=== PATIENT | male | born 1965 | race Caucasian/White ===

== ENCOUNTER 2019-12-15 13:52 | Outpatient (CLI) | payer MEDICAID, SELFPAY ==
--- NOTE | 2019-12-15 06:00 | DI.RAD_ITS ---
EXAM: XR PAIN CLINIC LUMBAR SP 2V CLINICAL HISTORY: Dx: Lumbar Spondylosis, BILAT LUMBAR BRANCH BLOCK TECHNIQUE: 2D and realtime digital imaging was performed. Fluoroscopy was provided in the OR COMPARISON: No exams were available for comparison FINDINGS: C-arm fluoroscopy was utilized by Dr. Bradford during bilateral lumbar medial branch block. Hard copies sh ow needles positioned adjacent to the pedicles at what appear to be the L 4 L5 and S1 levels bilatera lly. Fluoro time 41 seconds. RADIATION DOSE DELIVERED: Total DLP
[2019-12-15 13:57] VITALS: BP 115/74; PULSE 74; RESP 16; TEMP 37; O2SAT 99
--- NOTE | 2019-12-15 14:09 | PDOC.PAIN ---
Pain Clinic Procedure Note Procedure Note Procedure Note: Lumbar/Sacral Medial Branch Blocks JEANNIE ESPOSITO has been referred to the [facility] for lumbar/sacral medial branch blocks. Pre-operative diagnosis: lumbar spondylosis Post-operative diagnosis: same as above COMMENTS: patient works as a [employer]. 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 He reports aggravating factors for his axial back pain includes prolonged standing, squatting, ect. Patient was interviewed and the medical record reviewed. There were no medical, pharmacologic, radiographic or other structural contraindications to attempting fluoroscopically guided local anesthetic lumbar/sacral medial branch blocks. Risks and expected side effects as well as potential benefit of the procedure were reviewed and voiced concerns addressed. The printed consent form was signed and witnessed. Standard time-out procedure was performed. Patient was placed in the prone position on the fluoroscopy table and automated blood pressure cuff and pulse oximeter applied. The skin entry points for approaching the anatomic target points of the segmental medial branches of bilateral L3, L4, L5-DR were identified with anfluoroscopy and marked. Following thorough Chlorhexadine preparation of the skin and draping and a 25 gauge spinal needle was placed under fluoroscopic guidance down on to the target point for each respective segmental medial branch.Position was confirmed in A/P, oblique and lateral views with 0.25ml of omnipaque 240. Then 0.5ml 0.5% Bupivacaine was injected. Vital signs were stable throughout the procedure and were as recorded in the docflowsheet by the nursing staff. Follow up plans and appointments were discussed and was instructed to keep careful note of how the usual pain was modified by these injections. Specifically was asked to keep a pain diary for the next 24 hours using a numeric pain scale of 0-10 and report these results at the follow-up visit. Post procedure instruction was given as documented in the nursing documentation and having met discharge criteria. Patient was discharged from the [facility]. Based on the medial branches blocked today, if the patient has adequate relief and we are able to proceed to radiofrequency ablation, the treatment should result in the denervation of the bilateral L4/5 and L5/S1 facets. We would expect to denervate a total of 4 facets during the radiofrequency ablation. COMMENTS: pre-procedure pain level 8 out of 10. post-procedure pain level 3 out of 10. I personally performed the entire procedure. Magdiel Bradford MD Pain Management CC: Remigio Teixeira
[2019-12-15 14:44] VITALS: BP 109/74; PULSE 69; RESP 12; O2SAT 100
[2019-12-15] MEDS: Omnipaque 240 MG/ML 50 ML BTL IJ (14:45)
[2019-12-15] MEDS: Bupivacaine 0.5% Pres-Free 10 ML VIAL IJ (14:45)
== END 2019-12-15 14:12 ==
PROVIDERS: PCP Family Medicine; Visit Provider Internal Medicine
DX: M47.816 Spondylosis without myelopathy or radiculopathy, lumbar region (principal)
CPT/HCPCS: 64493; 64494; 72100; Q9967

== ENCOUNTER 2020-01-12 09:59 | Outpatient (CLI) | payer MEDICAID, SELFPAY ==
[2020-01-12 10:05] VITALS: BP 107/78; PULSE 78; RESP 16; TEMP 36.8; O2SAT 96
[2020-01-12] MEDS: Omnipaque 240 MG/ML 50 ML BTL IJ (10:37)
[2020-01-12] MEDS: Lidocaine 2% Pres-Free 5 ML VIAL IJ (10:37)
--- NOTE | 2020-01-12 10:37 | DI.RAD_ITS ---
EXAM: XR PAIN CLINIC LUMBAR SP 2V CLINICAL HISTORY: Dx: Lumbar Spondylosis TECHNIQUE: 2D and realtime digital imaging was performed. CONTRAST MATERIAL: Refer to procedure report. COMPARISON: No exams were available for comparison FINDINGS: Fluoroscopy was provided for Dr. Bradford during the performance of a lumbar radiofrequency ablation. Ple ase refer to the procedure report for complete details. Fluoro time: 52.7 seconds IMPRESSION:
[2020-01-12 10:42] VITALS: BP 110/66; PULSE 76; RESP 18; O2SAT 100
--- NOTE | 2020-01-12 10:45 | PDOC.PAIN ---
Pain Clinic Procedure Note Procedure Note Procedure Note: Lumbar/Sacral Medial Branch Blocks JEANNIE ESPOSITO has been referred to the [facility] for lumbar/sacral medial branch blocks. Pre-operative diagnosis: lumbar spondylosis Post-operative diagnosis: same as above COMMENTS: patient works as a [employer]. 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 He reports aggravating factors for his axial back pain includes prolonged standing, squatting, ect. Patient was interviewed and the medical record reviewed. There were no medical, pharmacologic, radiographic or other structural contraindications to attempting fluoroscopically guided local anesthetic lumbar/sacral medial branch blocks. Risks and expected side effects as well as potential benefit of the procedure were reviewed and voiced concerns addressed. The printed consent form was signed and witnessed. Standard time-out procedure was performed. Patient was placed in the prone position on the fluoroscopy table and automated blood pressure cuff and pulse oximeter applied. The skin entry points for approaching the anatomic target points of the segmental medial branches of bilateral L3, L4, L5-DR were identified with anfluoroscopy and marked. Following thorough Chlorhexadine preparation of the skin and draping and a 25 gauge spinal needle was placed under fluoroscopic guidance down on to the target point for each respective segmental medial branch.Position was confirmed in A/P, oblique and lateral views with 0.25ml of omnipaque 240. Then 0.5ml 2% Lidocaine was injected. Vital signs were stable throughout the procedure and were as recorded in the docflowsheet by the nursing staff. Follow up plans and appointments were discussed and was instructed to keep careful note of how the usual pain was modified by these injections. Specifically was asked to keep a pain diary for the next 24 hours using a numeric pain scale of 0-10 and report these results at the follow-up visit. Post procedure instruction was given as documented in the nursing documentation and having met discharge criteria. Patient was discharged from the [facility]. Based on the medial branches blocked today, if the patient has adequate relief and we are able to proceed to radiofrequency ablation, the treatment should result in the denervation of the bilateral L4/5 and L5/S1 facets. We would expect to denervate a total of 4 facets during the radiofrequency ablation. COMMENTS: pre-procedure pain level 8 out of 10. post-procedure pain level 2 out of 10. I personally performed the entire procedure. Magdiel Bradford MD Pain Management CC: Remigio Teixeira
== END 2020-01-12 10:19 ==
PROVIDERS: PCP Family Medicine; Visit Provider Internal Medicine
DX: M47.816 Spondylosis without myelopathy or radiculopathy, lumbar region (principal)
CPT/HCPCS: 64493; 64494; 72100; Q9967

== ENCOUNTER 2020-01-28 13:45 | Outpatient (CLI) | payer MEDICAID, SELFPAY ==
--- NOTE | 2020-01-28 06:00 | DI.RAD_ITS ---
EXAM: XR PAIN CLINIC LUMBAR SP 2V CLINICAL HISTORY: Dx:Lumbar Spondylosis TECHNIQUE: 2D and realtime digital imaging was performed. COMPARISON: No exams were available for comparison FINDINGS: C-arm fluoroscopy was utilized by Dr. Tapia during reported radiofrequency ablation lumbar region. [address] rd copies show needle placement bilaterally what appear to be the L3-4 L4-5 and L5-S1 levels Fluoro time 94 seconds. IMPRESSION: RADIATION DOSE DELIVERED: Total DLP
[2020-01-28 13:54] VITALS: BP 115/91; PULSE 74; RESP 16; TEMP 36.5; O2SAT 98
[2020-01-28] MEDS: Lactated Ringers 1,000 ML 80 ML IV (14:14)
[2020-01-28] MEDS: fentaNYL 100 MCG/2 ML VIAL IVP (14:21)
[2020-01-28] MEDS: Midazolam 2 MG/2 ML VIAL IVP (14:22)
[2020-01-28 15:06] VITALS: BP 107/67; PULSE 72; RESP 13; O2SAT 100
[2020-01-28] MEDS: Lidocaine 2% Pres-Free 5 ML VIAL IJ (15:34)
[2020-01-28] MEDS: methylPREDNISolone ACETATE 40 MG/ML VIAL IJ (15:34)
[2020-01-28] MEDS: Bupivacaine 0.5% Pres-Free 10 ML VIAL IJ (15:34)
--- NOTE | 2020-02-11 09:42 | PDOC.PAIN_ITS ---
Pain Clinic Procedure Note Procedure Note Procedure Note: Bilateral Lumbar Radiofrequency with Coolief Machine PROCEDURE NOTE Date of Service: January 28, 2020 Patient: JEANNIE ESPOSITO Provider: Riley Tapia DO, MPH Pre Operative Diagnosis: lumobsacral spondylosis without myelopathy Post Operative Diagnosis: Same PROCEDURE: Radiofrequency Ablation of medial branches - Bilateral L3 L4 and L5DR JEANNIE ESPOSITO was brought into the fluoroscopy suite and positioned into the prone position on the fluoroscopy table and allowed to adjust to a position of comfort. A grounding pad was placed on the right thigh. The lumbar region was widely prepped with a chloraprep solution, allowed to air dry and draped in s tandard sterile surgical fashion. Local anesthesia was provided by 1 mL of 2 % Lidocaine delivered with a 25g needle to each entry site. A 17g 100mm radiofrequency introducer needle was placed to the planned anatomic targets guided with intermittent fluoroscopy with a perpendicular approach to terminally place at the junction of the superior articular process and the transverse process of the bilateral L4 L5 and the base of the sacral ala on the bilateral for the L5 medial branch nerve. The stylets were removed and radiofrequency probes with a 4mm active tip were then inserted. Needle tip position of the probes was verified in the AP, oblique, and lateral views. At each site, the medial branch nerve was stimulated at 2 Hz to a maximum 1-2 volts determined to finalize safe needle and electrode placement. The patient was awake and responsive during this portion of the procedure. Each target was anesthetized with 1-2 mL of 2 % Lidocaine for anesthesia for lesioning and then each target was lesioned at 80 degrees Celsius for 2 minutes and 30 seconds. Tissue impedences were noted to be between 250 and 500 Ohms. After the ablation I injected 1/3 cc of Depomedrol (40 mg/cc) and 1 cc of 0.5% Bupivacaine at each ablation area. Electrodes and needles were then removed without difficulty and bandages placed over the needle placement sites, the patient then returned to the supine position on a stretcher and transported to the recovery room without hemodynamic, neurologic, or allergic reactions. Fluoroscopic images were printed for hard copy recording and digitally archived. Follow up plans and appointments were discussed with the JEANNIE . Post procedure instruction was given as documented in nursing documentation and having met discharge criteria, JEANNIE was discharged from the [facility]. COMMENTS: No complications. F/U with our office as needed. I personally performed this entire procedure. Riley Tapia DO, MPH Attending Physician in Pain Management
== END 2020-01-28 14:05 ==
PROVIDERS: PCP Family Medicine; Visit Provider Preventive Medicine Occupational Medicine
DX: M47.817 Spondylosis without myelopathy or radiculopathy, lumbosacral region (principal)
CPT/HCPCS: 64635; 64636; 72100; J1030; J2250; J3010

== ENCOUNTER 2022-03-22 18:38 | Outpatient (REF) | payer MEDICAID, SELFPAY ==
[2022-03-22 21:24] LABS: ALT 63 U/L (16-63); AST 37 U/L (15-37); Alkaline Phosphatase 65 U/L (46-116); Anion Gap 4.8 mmol/L (3-11); BUN 14 mg/dL (7-18); Bilirubin, Total 0.4 mg/dL (0.2-1.0); CO2 28.2 mmol/L (21.0-32.0); CREATININE 0.9 mg/dL (0.70-1.30); Calcium 8.8 mg/dL (8.5-10.1); Calculated LDL 93 mg/dL (<100); Chloride 104 mmol/L (98-107); Cholesterol 165 mg/dL (<200); Estimated GFR 100.24 (mL/min/1.73m2); Glucose 89 mg/dL (74-106); HDL Cholesterol 64 mg/dL (40-60); Potassium 3.9 mmol/L (3.5-5.1); Sodium 137 mmol/L (136-145); TSH (W/Ref FT4) 2.54 uIU/mL (0.36-3.74); Triglyceride 43 mg/dL (<150)
== END 2022-03-22 18:39 | disposition home or self-care (01) ==
LOC: NCHCN 18:38
PROVIDERS: PCP Family Medicine; Visit Provider Nurse Practitioner Family
DX: Z00.00 Encounter for general adult medical examination without abnormal findings (principal)
CPT/HCPCS: 80053; 80061; 84443; 85025

== ENCOUNTER 2022-03-26 15:51 | Outpatient (REF) | payer MEDICAID, SELFPAY ==
[2022-03-26 14:52] LABS: Abs Immature Grans 0.01 10^3/uL (0.0-0.06); Absolute Basophil Count 0.07 10^3/uL (0.0-0.2); Absolute Eosinophil Count 0.36 10^3/uL (0.0-0.7); Absolute Lymphocyte Count 1.71 10^3/uL (1.2-3.4); Absolute Monocyte Count 0.53 10^3/uL (0.1-0.8); Absolute Neutrophil Count 2.67 10^3/uL (1.2-6.7); Basophils % 1.3; Eosinophils % 6.7; HCT 42.8 % (40.0-50.0); HGB 14.4 g/dL (13.5-17.5); Immature Grans % 0.2; MCH 29.4 pg (27.0-33.0); MCHC 33.6 % (32.0-36.0); MCV 87 fL (80-95); MPV 10.5 fL (8.0-11.0); Monocytes % 9.9; Neutrophils % 49.9; Platelet Count 180 10^3/uL (130-400); RDW 11.7 % (11.8-14.1); RDW-SD 37.8 fL; WBC 5.35 10^3/uL (4.4-10.8)
== END 2022-03-26 15:52 | disposition home or self-care (01) ==
LOC: NCHCN 15:51
PROVIDERS: PCP Family Medicine; Visit Provider Nurse Practitioner Family
DX: Z00.00 Encounter for general adult medical examination without abnormal findings (principal)
CPT/HCPCS: 85025

== ENCOUNTER 2022-04-19 12:41 | Outpatient (CLI) | payer MEDICAID, SELFPAY ==
[2022-04-19 12:53] VITALS: BP 106/70; PULSE 70; RESP 20; TEMP 37; O2SAT 99
--- NOTE | 2022-04-19 13:43 | DI.RAD_ITS ---
Exam(s) XR PAIN CLINIC LUMBAR SP 2V EXAM: XR PAIN CLINIC LUMBAR SP 2V CLINICAL HISTORY: Dx:Lumbar SPondylosis TECHNIQUE: 2D and realtime digital imaging was performed. CONTRAST MATERIAL: Refer to procedure report. COMPARISON: No exams were available for comparison FINDINGS: Fluoroscopy was provided for Dr. Tapia during the performance of a lumbar medial branch block. Jack gonzalez refer to the procedure report for complete details. Ka,r=6.0 mGy IMPRESSION:
--- NOTE | 2022-04-19 13:45 | PDOC.PAIN_ITS ---
Date of service: 04/19/22 Time of Service: 13:49 Pain Clinic Procedure Note Procedure Note Procedure Note: Lumbar/Sacral Medial Branch Blocks Jamal Evans has been referred to the [facility] for lumbar/sacral medial branch blocks. COMMENTS: He did very well with bilateral L3-L5 RFA >18 months ago. He had about 18 months of relief. His pre=procedure Pain VAS is 8/10. Dx: Lumbosacral spondylosis without myelopathy Patient was interviewed and the medical record reviewed. There were no medical, pharmacologic, radiographic or other structural contraindications to attempting fluoroscopically guided local anesthetic lumbar/sacral medial branch blocks. Risks and expected side effects as well as potential benefit of the procedure were reviewed and voiced concerns addressed. The printed consent form was signed and witnessed. Standard time-out procedure was performed. Patient was placed in the prone position on the fluoroscopy table and automated blood pressure cuff and pulse oximeter applied. The skin entry points for ap proaching the anatomic target points of the segmental medial branches of bilateral L3-L5 were identified with anfluoroscopy and marked. Following thorough Chlorhexadine preparation of the skin and draping and 1% lidocaine infiltration of the skin entry points and subcutaneous tissues, a 22 gauge 3.5 spinal needle was placed under fluoroscopic guidance down on to the target point for each respective segmental medial branch.Position was confirmed in A/P, oblique and lateral views with 0.25ml of omnipaque 240. At this point I injected 0.5ml 0.5% Bupivacaine at each segmental sensory nerve. Vital signs were stable throughout the procedure and were as recorded in the docflowsheet by the nursing staff. Follow up plans and appointments were discussed and was instructed to keep careful note of how the usual pain was modified by these injections. Specifically was asked to keep a pain diary for the next 24 hours using a numeric pain scale of 0-10 and report these results at the follow-up visit. Post procedure instruction was given as documented in the nursing documentation and having met discharge criteria. Patient was discharged from the [facility] Management Center. Based on the medial branches blocked today, if the patient has adequate relief and we are able to proceed to radiofrequency ablation, the treatment should result in the denervation of the bilateral L4-L5 and L5-S1 FACET JOINTS. We would expect to denervate a total of 4 facets during the radiofrequency ablation. COMMENTS: Post-procedure pain VAS was 6/10 Riley Tapia DO, MPH [facility]-Pain Management [facility] CC: Remigio Teixeira
[2022-04-19] MEDS: Bupivacaine 0.5% Pres-Free 10 ML VIAL IJ (13:51)
[2022-04-19] MEDS: Omnipaque 240 MG/ML 50 ML BTL IJ (13:51)
[2022-04-19 13:55] VITALS: BP 109/65; PULSE 69; RESP 14; O2SAT 100
== END 2022-04-19 12:42 | disposition home or self-care (01) ==
LOC: PC 12:41
PROVIDERS: PCP Family Medicine; Visit Provider Preventive Medicine Occupational Medicine
DX: M47.817 Spondylosis without myelopathy or radiculopathy, lumbosacral region (principal)
CPT/HCPCS: 64493; 64494; 72100; Q9967

== ENCOUNTER 2022-05-09 07:47 | Outpatient (CLI) | payer MEDICAID, SELFPAY ==
[2022-05-09 07:53] VITALS: BP 101/67; PULSE 75; RESP 20; TEMP 36.8; O2SAT 97
[2022-05-09] MEDS: Midazolam 2 MG/2 ML VIAL IVP (08:22)
[2022-05-09] MEDS: fentaNYL 100 MCG/2 ML VIAL IVP (08:22)
[2022-05-09] MEDS: Lactated Ringers 500 ML 80 ML IV (08:23)
--- NOTE | 2022-05-09 08:44 | DI.RAD_ITS ---
Exam(s) XR PAIN CLINIC LUMBAR SP 2V EXAM: XR PAIN CLINIC LUMBAR SP 2V CLINICAL HISTORY: Dx: Lumbar Spondylosis TECHNIQUE: 2D and realtime digital imaging was performed. CONTRAST MATERIAL: Refer to procedure report. COMPARISON: No exams were available for comparison FINDINGS: Fluoroscopy was provided for Dr. Bradford during the performance of a lumbar frequency radioablation. Ple ase refer to the procedure report for complete details. Ka,r=5.59 mGy IMPRESSION:
[2022-05-09 08:48] VITALS: BP 123/61; PULSE 61; RESP 16; O2SAT 100
--- NOTE | 2022-05-09 08:50 | PDOC.PAIN_ITS ---
Date of service: 05/09/22 Time of Service: 08:50 Pain Clinic Procedure Note Procedure Note Procedure Note: [Right/Left/Bilateral] Lumbar Radiofrequency with Coolief Machine PROCEDURE NOTE Date of Service: May 09, 2022 Patient: CristinaJamal William Provider: Magdiel Bradford MD Pre Operative Diagnosis: Lumbosacral Spondylosis without Myelopathy Post Operative Diagnosis: Same PROCEDURE: Radiofrequency Ablation of medial branches - Bilateral L3, L4, L5-DR Jamal Evans was brought into the fluoroscopy suite and positioned into the prone position on the fluoroscopy table and allowed to adjust to a position of comfort. A grounding pad was placed on the left thigh. The lumbar region was widely prepped with a chloraprep solution, allowed to air dry and draped in standard sterile surgical fashion. Local anesthesia was provided by ~10mL of 1% lidocaine delivered with a 25g needle. A 17g 50mm radiofrequency introducer needle was placed to the planned anatomic targets guided with intermittent fluoroscopy with a perpendicular approach to terminally place at the junction of the superior articular process and the transverse process of the bilateral L3, L4, the base of the sacral ala on the bilateral for the L5 medial branch nerve bilaterally. The stylets were removed and radiofrequency probes with a 4mm active tip were then inserted. Needle tip position of the probes was verified in the AP, oblique, and lateral views. At each site, the medial branch nerve was stimulated at 2 Hz to a maximum 1-2 volts determined to finalize safe needle and electrode placement. The patient was awake and responsive during this portion of the procedure. Each target was anesthetized with 1mL of 2% Lidocaine for anesthesia for lesioning and then each target was lesioned at 80 degrees Celsius for 2 minutes and 30 seconds. Tissue impedences were noted to be between 250 and 500 Ohms. Post-lesioning, each site received 0.33cc of a mixture containing 2cc of 0.5% Bupivocaine and 80mg/ml of Depomedrol. Electrodes and needles were then removed and bandages placed over the needle placement sites, the patient then returned to the supine position on a stretcher and transported to the recovery room without hemodynamic, neurologic, or allergic reactions. Fluoroscopic images were printed for hard copy recording and digitally archived. POST PROCEDURE EVALUATION: IMPRESSION: 1. Patient tolerated procedure well. He received total of 1mg of IV versed and 25mcg of IV Fetanyl 2. The patient will be contacted in 1-3 weeks 3. Estimated Blood Loss: <5 mls 4. Fluoroscopy time: Documented in the EMR. Follow up plans and appointments were discussed with the Jamal . Post procedure instruction was given as documented in nursing documentation and having met discharge criteria, Jamal was discharged from the [facility] Management Center. COMMENTS: No apparent complications. Pre-procedure VAS score 8/10, post- procedure pain: VAS= 4/10. F/U with our office as needed. I personally performed this entire procedure. Magdiel Bradford Attending Physician Pain Management
[2022-05-09] MEDS: Bupivacaine 0.5% Pres-Free 10 ML VIAL IJ (08:57)
[2022-05-09] MEDS: methylPREDNISolone ACETATE 40 MG/ML VIAL IJ (08:57)
[2022-05-09] MEDS: Lidocaine 2% Pres-Free 5 ML VIAL IJ (08:57)
== END 2022-05-09 07:48 | disposition home or self-care (01) ==
LOC: PC 07:47
PROVIDERS: PCP Nurse Practitioner Family; Visit Provider Internal Medicine
DX: M47.817 Spondylosis without myelopathy or radiculopathy, lumbosacral region (principal)
CPT/HCPCS: 64635; 64636; 72100; J1030; J2250; J3010

== ENCOUNTER 2022-05-18 00:12 | Outpatient (CLI) | payer MEDICAID, SELFPAY ==
--- NOTE | 2022-05-18 08:56 | DI.RAD_ITS ---
Exam(s) RF BARIUM SWALLOW EXAM: RF BARIUM SWALLOW CLINICAL HISTORY: dysphagia to liquids and solids, nausea and vomiting,r13.10 TECHNIQUE: 2D and realtime digital imaging was performed. CONTRAST MATERIAL: Thick and thin barium and barium tablet were administered. COMPARISON: No exams were available for comparison FINDINGS: The PA and lateral chest films show normal heart size and clear lung pisano. The lateral view of the neck shows degenerative disc changes at C5-6 and C6-7 as well as facet degenerative changes. Airway appears normal. Thin barium, thick barium and barium tablet were administered. The patient swallowed barium without difficulty. Esophageal peristalsis is normal. No ulceration, s tricture or mass is seen. [id number] gastroesophageal reflux was noted when the patient was [place]. No hiatal hernia. Stomach grossly normal. Fluoro time 62 seconds IMPRESSION: Gastroesophageal reflux. RADIATION DOSE DELIVERED: ashli Fitch=5.86 mGy
[2022-05-18] MEDS: Barium Sulfate 98% W/W 140 ML BTL PO (09:25)
[2022-05-18] MEDS: Barium Sulfate 60% W/V 355 ML BTL 150 ML PO (09:25)
[2022-05-18] MEDS: Barium Sulfate 700 MG TAB PO (09:26)
[2022-05-18] MEDS: Simethicone/Sod Bicarb/Cit Ac, 4 gram PACKET 1 PACKET PO (09:26)
== END 2022-05-18 00:32 ==
LOC: DI 00:12
PROVIDERS: PCP Nurse Practitioner Family; Visit Provider Physical Therapy Assistant
DX: R13.19 Other dysphagia (principal); R11.2 Nausea with vomiting, unspecified; K21.9 Gastro-esophageal reflux disease without esophagitis; M50.322 Other cervical disc degeneration at C5-C6 level; M50.323 Other cervical disc degeneration at C6-C7 level
CPT/HCPCS: 74221; J3490

== ENCOUNTER 2022-05-29 02:18 | Outpatient (CLI) | payer MEDICAID, SELFPAY ==
--- NOTE | 2022-05-29 07:00 | DI.MRI_ITS ---
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 COMPARISON: None FINDINGS: CERVICOMEDULLARY JUNCTION: Intact with no evidence of cerebellar tonsillar ectopia. No obvious abnor mality of the odontoid process. No evidence of Chiari 1 malformation. CERVICAL SPINAL CORD: There is no abnormal signal in the cervical spinal cord and no evidence of foca l cord atrophy nor focal cord swelling. OSSEOUS:There are no cervical fractures evident. No significant osseous lesions in the cervical vert ebrae. Mild reversal normal curvature noted. INDIVIDUAL LEVELS: C2-3: No disc herniation nor central canal stenosis. Right facet joints unremarkable. Left facet ex hibits degenerative change. No significant foraminal stenosis on either side at this level. C3-4: Normal disc height and signal. Mild annular bulging without a distinct disc herniation. Centr al canal dimensions within normal limits. There is significant left facet arthropathy; less so on th e right side. No foraminal stenosis. C4-5: Preserved disc height.Mild annular bulging without a distinct focal disc herniation. Central c anal dimensions are lower normal. Some facet arthropathy noted on the right side; there is right tennille ed foraminal stenosis. Left facet joint unremarkable. No obvious foraminal stenosis on the left tennille e. C5-6: Chronic disc space narrowing and anterior osseous lipping. Posteriorly at this level there is symmetrical annular bulging which show indents the thecal sac but not the spinal cord. Mild facet ar thropathy on the right side. Mild right-sided foraminal stenosis. Left facet joint only mild degene rative change. No left-sided foraminal stenosis evident. C6-7: Chronic decreased disc height and signal. Anterior osseous lipping. Posteriorly there is mild annular bulging without a distinct disc herniation and central canal dimensions are within normal li mits. Small left-sided Luschka joint osteophyte at this level with only mild left-sided foraminal st enosis. On the right side at this level there are minimal degenerative facet joint changes.. Also m ild foraminal stenosis. C7-T1: No disc herniation nor central canal stenosis. Moderate bilateral facet arthropathy.No foramin al stenosis. IMPRESSION: 1. Multilevel degenerative disc disease. No dominant disc herniation. There is no significant centr al spinal canal stenosis. 2. There is asymmetric facet arthropathy as described individually above and resulting asymmetric mil d bilateral foraminal stenosis, as described individually above. 3. No abnormal signal evident in the cervical spinal cord and there is no cervical spinal cord atroph y nor focal swelling. DATA REPOSITORY:
== END 2022-05-29 02:38 ==
LOC: DI 02:19
PROVIDERS: PCP Nurse Practitioner Family; Visit Provider Preventive Medicine Occupational Medicine
DX: M47.812 Spondylosis without myelopathy or radiculopathy, cervical region (principal); M48.02 Spinal stenosis, cervical region
CPT/HCPCS: 72141

== ENCOUNTER 2022-09-06 11:45 | Outpatient (CLI) | payer MEDICAID, SELFPAY ==
--- NOTE | 2022-09-06 06:00 | DI.RAD_ITS ---
Exam(s) XR PAIN CLINIC CERVICAL SP 2V EXAM: XR PAIN CLINIC CERVICAL SP 2V CLINICAL HISTORY: DX: Cervical spondylosis TECHNIQUE: 2D and realtime digital imaging was performed. CONTRAST MATERIAL: Refer to procedure report. COMPARISON: No exams were available for comparison FINDINGS: Fluoroscopy was provided for Dr. Tapia during the performance of a cervical medial branch block. Ple ase refer to the procedure report for complete details. Ka,r=3.13 mGy IMPRESSION:
[2022-09-06 11:54] VITALS: BP 98/61; PULSE 71; RESP 20; TEMP 36.6; O2SAT 100
--- NOTE | 2022-09-06 12:36 | PDOC.PAIN ---
Date of service: 09/06/22 Time of Service: 12:39 Pain Managment Procedure Note Procedure Note Procedure Note: CERVICAL MEDIAL BRANCH BLOCKS Jamal Evans has been referred to the Pain Management Center for cervical medial branch blocks. COMMENTS: I previously evaluated him in the office Dx: Cervical spondylosis without myelopathy Pre-procedure pain VAS was 8/10 Cristina was interviewed and the medical record reviewed. There were no medical, pharmacologic, radiographic or other structural contraindications to attempting fluoroscopically guided local anesthetic cervical medial branch blocks. Risks and expected side effects as well as potential benefit of the procedure were reviewed with Cristina, and Cristina's voiced concerns addressed. The printed consent form was signed and witnessed. Standard time-out procedure was performed. Noraas placed in the Right lateral decubitus position on the fluoroscopy table and automated blood pressure cuff and pulse oximeter applied. The skin entry points for approaching the anatomic target points of the segmental medial branches of left C3-C6 were identified with fluoroscopy and marked. Following thorough Chlorhexadine preparation of the skin and draping and 1% lidocaine infiltration of the skin entry points and subcutaneous tissues, a 25 gauge spinal needle was placed under fluoroscopic guidance down on to the target point for each respective segmental medial branch. Position was confirmed in A/P and leteral views with 0.25ml of omnipaque 240 injected at each level. At each point 0.3ml of 0.5% bupivicaine was injected. Cristina's vital signs were stable throughout the procedure and were as recorded in the docflowsheet by the nursing staff. Follow up plans and appointments were discussed with Cristina. Cristina was instructed to keep careful note of how the usual pain was modified by these injections. Specifically, the patient was asked to keep a pain diary for the next 4 hours using a numeric pain scale of 0-10 and report these results at the follow-up visit. Post procedure instruction was given as documented in the nursing documentation and having met discharge criteria, Jeane was discharged from the Pain Management Center. Based on the medial branches blocked today, if they patient has adequate relief and we are able to proceed to radiofrequency ablation, the treatment should result in the denervation of the C3-C4, C4-C5, and C5-C6 facet joints. We would expect to denervate a total of 3 facets during the radiofrequency ablation. COMMENTS: Post-procedure pain VAS was 4/10. Riley [place], DO, MPH [facility]-Pain Management [facility] CC: Peace Cuevas
[2022-09-06 12:38] VITALS: BP 104/61; PULSE 67; RESP 17; O2SAT 100
[2022-09-06] MEDS: Bupivacaine 0.5% Pres-Free 10 ML VIAL IJ (12:38)
[2022-09-06] MEDS: Omnipaque 240 MG/ML 50 ML BTL IJ (12:38)
== END 2022-09-06 11:46 | disposition home or self-care (01) ==
LOC: PC 11:46
PROVIDERS: PCP Nurse Practitioner Family; Visit Provider Preventive Medicine Occupational Medicine
DX: M47.812 Spondylosis without myelopathy or radiculopathy, cervical region (principal)
CPT/HCPCS: 64490; 64491; 64492; 72040; Q9967

== ENCOUNTER 2022-11-08 10:36 | Outpatient (REF) | payer MEDICAID, SELFPAY ==
[2022-11-08 14:23] LABS: HCT 46.1 % (40.0-50.0); HGB 15.8 g/dL (13.5-17.5); MCH 30.2 pg (27.0-33.0); MCHC 34.3 % (32.0-36.0); MCV 88 fL (80-95); MPV 10.7 fL (8.0-11.0); Platelet Count 217 10^3/uL (130-400); RBC 5.23 10^6/uL (4.36-5.78); RDW 11.7 % (11.8-14.1); RDW-SD 37.5 fL; WBC 5.53 10^3/uL (4.4-10.8)
== END 2022-11-08 10:37 | disposition home or self-care (01) ==
LOC: NCHCN 10:36
PROVIDERS: PCP Nurse Practitioner Family; Visit Provider Family Medicine
DX: R63.4 Abnormal weight loss (principal)
CPT/HCPCS: 85027

== ENCOUNTER 2022-11-15 08:51 | Outpatient (CLI) | payer MEDICAID, SELFPAY ==
[2022-11-15 09:03] VITALS: BP 111/71; PULSE 68; RESP 20; TEMP 37; O2SAT 98
--- NOTE | 2022-11-15 09:31 | DI.RAD_ITS ---
Exam(s) XR PAIN CLINIC CERVICAL SP 2V EXAM: XR PAIN CLINIC CERVICAL SP 2V CLINICAL HISTORY: Dx: Cervical Spondylosis. TECHNIQUE: Fluoroscopy was provided for the referring physician for guidance with performing pain cl inic injection procedure. COMPARISON: No exams were available for comparison FINDINGS: Please see procedure note for details. Fluoro time: 52.3 seconds RADIATION DOSE DELIVERED: ashli Fitch=7.92 mGy
[2022-11-15] MEDS: Omnipaque 240 MG/ML 50 ML BTL IJ (09:33)
[2022-11-15] MEDS: Bupivacaine 0.5% Pres-Free 10 ML VIAL IJ (09:34)
--- NOTE | 2022-11-15 09:40 | PDOC.PAIN ---
Date of service: 11/15/22 Time of Service: 09:43 Pain Managment Procedure Note Procedure Note Procedure Note: PROCEDURE NOTE LEFT SIDED CERVICAL MEDIAL BRANCH BLOCKS Date of Service: November 15, 2022 Patient: Jamal Evans Provider: Riley Tapia DO, MPH Jamal Evans [facility] for cervical medial branch blocks. Pre-operative diagnosis: Cervical Spondylosis without Myelopathy Post-operative diagnosis: Same Pre-procedure pain: VAS= 9/10 COMMENTS: He did very well with his first CMBB at these same levels. Jamal?was interviewed and the medical records were reviewed. There were no medical, pharmacologic, radiographic or other structural contraindications to attempting fluoroscopically guided local anesthetic cervical medial branch blocks. Risks and potential side effects were discussed. I also discussed the potential benefit(s) of the procedure with Jamal, and voiced concerns were addressed. After Jamal was completely informed about the procedure, the printed consent form was signed. A standard time-out procedure was performed. Jamal was placed in the lateral decubitus position on the fluoroscopy table with the effected side up. Automated blood pressure cuff and pulse oximeter were applied. The skin entry points for approaching the anatomic target points of the segmental medial branches of Left C3,C4,C5, and C6 were identified with fluoroscopy and marked. The skin at the target site area was thoroughly prepared with Chlorhexadine. The skin was then draped. Next, a 25 gauge 3.5 spinal needle was placed under fluoroscopic guidance down on to the target point (the articular pillar) for each respective segmental medial branch. Position was confirmed in A/P and lateral views. Aspiration revealed no blood or clear fluid. Next, 0.25ml of omnipaque 240 was injected at each level. No contrast following a vascular or neural pattern was visualized under continuous fluoroscopy. Next, 0.25 ml of preservative-free 0.5% bupivicaine was injected at each level. (49 mls of Omnipaque was wasted) There was no unusual discomfort expressed by Jamal. The needles were withdrawn without difficulty. Jamal was observed and was without hemodynamic, neurologic, or allergic reactions.? Fluoroscopic images were digitally archived. Jamal's vital signs were stable throughout the procedure and were as recorded in the docflowsheet by the nursing staff. Provacative testing using the Modified Santana's facet loading test Left side Directly before the block VAS (0-10) = 9/10 Five minutes after the block VAS (0-10) = 2/10 Percentage relief obtained with this diagnostic block 90% Any improved physical functioning directly after the blocks? Able to move his next in all directions with minimal pain Follow up plans and appointments were discussed with Jamal. Jamal was instructed to keep careful note of how the usual pain was modified by these injections. Specifically, to keep a pain diary for the next 4 hours using a numeric pain scale of 0-10 and report these results. Post procedure instruction was given as documented in the nursing documentation and having met discharge criteria, the patient was [facility]. Based on the medial branches blocked today, if Jamal has adequate relief and we are able to proceed to radiofrequency ablation, the treatment should result in the denervation of the Left C3-C4 C4-C5 and C5-C6 facet joints. We would expect to denervate a total of 3 facets during the radiofrequency ablation. COMMENTS: No apparent complications. Post-procedure pain: VAS= 2/10 Jamal will call back with 0-4 hour post-procedure pain scores. I personally performed the entire procedure. RILEY TAPIA DO, MPH ABPM&R-subspecialty board certification in Pain Medicine [facility] [facility]
[2022-11-15 09:41] VITALS: BP 116/79; PULSE 60; RESP 13; O2SAT 100
== END 2022-11-15 08:52 | disposition home or self-care (01) ==
LOC: PC 08:52
PROVIDERS: PCP Nurse Practitioner Family; Visit Provider Preventive Medicine Occupational Medicine
DX: M47.817 Spondylosis without myelopathy or radiculopathy, lumbosacral region (principal)
CPT/HCPCS: 64490; 64491; 64492; 72040; Q9967

== ENCOUNTER 2023-01-17 07:36 | Outpatient (CLI) | payer MEDICAID, SELFPAY ==
--- NOTE | 2023-01-17 06:00 | DI.RAD_ITS ---
Exam(s) XR PAIN CLINIC CERVICAL SP 2V EXAM: XR PAIN CLINIC CERVICAL SP 2V CLINICAL HISTORY: Dx: Cervical Spondylosis TECHNIQUE: 2D and realtime digital imaging was performed. CONTRAST MATERIAL: Refer to procedure report. COMPARISON: No exams were available for comparison FINDINGS: Fluoroscopy was provided for Dr. Tapia during the performance of a cervical radiofrequency ablation. Please refer to the procedure report for complete details. Ka,r=4.53 mGy IMPRESSION:
[2023-01-17 07:47] VITALS: BP 109/78; PULSE 65; RESP 20; TEMP 36.8; O2SAT 98
[2023-01-17] MEDS: fentaNYL 100 MCG/2 ML VIAL IVP (08:24)
[2023-01-17] MEDS: Lactated Ringers 500 ML 80 ML IV (08:25)
[2023-01-17] MEDS: Midazolam 2 MG/2 ML VIAL IVP (08:25)
[2023-01-17 08:52] VITALS: BP 104/75; PULSE 68; RESP 16; O2SAT 98
--- NOTE | 2023-01-17 09:05 | PDOC.PAIN ---
Date of service: 01/17/23 Time of Service: 09:05 Pain Managment Procedure Note Procedure Note Procedure Note: PROCEDURE NOTE LEFT Cervical Radiofrequency Ablation Date of Service: January 17, 2023 Patient:? Jamal Evans? Provider:? Rilye Tapia DO, MPH Jamal Evans [facility] to [facility] LEFT Cervical Radiofrequency Ablation with the [employer] Machine.? Pre Operative Diagnosis: Cervical Spondylosis without Myelopathy Post Operative Diagnosis: Same Pre procedure pain; VAS= 7/10 Comments: He did very well with the CMBBs x 2 PROCEDURE: 1. Left C3-C4 facet joint radiofrequency denervation 2. Left C4-C5 facet joint radiofrequency denervation 3. Left C5-C6 facet joint radiofrequency denervation Jamal?was interviewed and the medical record was reviewed.? There were no medical, pharmacologic, radiographic or other structural contraindications to attempting fluoroscopically guided LEFT Cervical Radiofrequency Ablation.?Risks and expected side effects as well as potential benefit of the procedure were reviewed with Jamal, and the patient's voiced concerns were addressed.? The printed consent form was signed.? Standard time-out procedure was performed. Jamal was brought to the procedure suite and placed on the exam table in a comfortable lateral recumbent position. A grounding pad was placed on the left abdomen. The place for the needle placement was obtained by manual palpation as well as radiographic confirmation. The sterile field was prepped by chlorhexidine and sterile drapes. Local anesthesia, both superficial and deep was provided by local infiltration of 3 ml Lidocaine 1%. Using fluoroscopic guidance, A 17g 50 mm radiofrequency introducer needle with a 2 mm active tip was placed overlying the right C3 cervical vertebra from the lateral approach and was advanced until bony contact was felt with the articular pillar. Attempted aspiration revealed no blood or cerebrospinal fluid. Motor testing was then performed with 2.0 volts and no upper extremity motor stimulation was observed. 1 ml of 2% Lidocaine was injected through the RF needle. A radiofrequency lesion of the Left medial branch of C3 was then performed at 80 degrees Celsius for 2 minutes and 30 seconds. There was no unusual discomfort expressed by Jamal. The needles were withdrawn without difficulty. Jamal was observed and was without hemodynamic, neurologic, or allergic reactions. Fluoroscopic images were digitally archived. The same procedure was repeated for Left C4, C5 and C6 medial branches. POST PROCEDURE EVALUATION: IMPRESSION: 1. Medication given is documented in the MAR 2. Follow up plan: Jamal to contact [facility] as needed. This procedure may be repeated if the patient achieves at least 50% improvement in pain and/or function for at least 6 months. 3. Estimated Blood Loss: <5ml 4. Fluoroscopy time: Documented in the EMR Follow up plans and appointments were discussed with Jamal. Post procedure instruction was given as documented in nursing documentation and having met discharge criteria, Jamal was discharged from the [facility]. COMMENTS: No apparent complications. Post-procedure pain: VAS= 2/10. I personally performed this entire procedure. RILEY TAPIA DO, MPH ABPM&R - Subspecialty board certification in Pain Medicine [facility]
[2023-01-17] MEDS: Bupivacaine 0.5% Pres-Free 10 ML VIAL IJ (09:09)
[2023-01-17] MEDS: Lidocaine 2% Pres-Free 5 ML VIAL IJ (09:11)
[2023-01-17] MEDS: Dexamethasone Sod. Phos./Pres-Free 10 MG/ML VIAL IJ (09:12)
== END 2023-01-17 07:37 | disposition home or self-care (01) ==
LOC: PC 07:36
PROVIDERS: PCP Nurse Practitioner Family; Visit Provider Preventive Medicine Occupational Medicine
DX: M47.812 Spondylosis without myelopathy or radiculopathy, cervical region (principal)
CPT/HCPCS: 64633; 64634; 72040; J2250; J3010

== ENCOUNTER 2023-04-11 11:30 | Outpatient (CLI) | payer MEDICAID, SELFPAY ==
--- NOTE | 2023-04-11 06:00 | DI.RAD_ITS ---
Exam(s) XR PAIN CLINIC CERVICAL SP 2V EXAM: XR PAIN CLINIC CERVICAL SP 2V CLINICAL HISTORY: Dx: Cervical Spondylosis TECHNIQUE: 2D and realtime digital imaging was performed. CONTRAST MATERIAL: Refer to procedure report. COMPARISON: No exams were available for comparison FINDINGS: Fluoroscopy was provided for Dr. Tapia during the performance of a cervical medial branch block. Ple ase refer to the procedure report for complete details. Ka,r=4.09 mGy IMPRESSION:
[2023-04-11 11:36] VITALS: BP 110/66; PULSE 57; RESP 20; TEMP 36.7; O2SAT 97
[2023-04-11] MEDS: Omnipaque 240 MG/ML 50 ML BTL IJ (12:49)
[2023-04-11] MEDS: Bupivacaine 0.5% Pres-Free 10 ML VIAL IJ (12:49)
[2023-04-11 12:50] VITALS: BP 105/63; PULSE 65; RESP 19; O2SAT 100
--- NOTE | 2023-04-17 10:41 | PDOC.PAIN ---
Date of service: 04/11/23 Time of Service: 10:41 Pain Managment Procedure Note Procedure Note Procedure Note: PROCEDURE NOTE RIGHT SIDED CERVICAL MEDIAL BRANCH BLOCKS Date of Service: April 11, 2023 Patient: Jamal Evans Provider: Riley Tapia DO, MPH Jamal Evans has been referred to the [facility] for cervical medial branch blocks. Pre-operative diagnosis: Cervical Spondylosis without Myelopathy Post-operative diagnosis: Same Pre-procedure pain: VAS= 8/10 COMMENTS: He was previously evaluated in the office. Jamal? was interviewed and the medical records were reviewed. There were no medical, pharmacologic, radiographic or other structural contraindications to attempting fluoroscopically guided local anesthetic cervical medial branch blocks. Risks and potential side effects were discussed. I also discussed the potential benefit(s) of the procedure with Jamal, and voiced concerns were addressed. After Jamal was completely informed about the procedure, the printed consent form was signed. A standard time-out procedure was performed. Jamal was placed in the lateral decubitus position on the fluoroscopy table with the effected side up. Automated blood pressure cuff and pulse oximeter were applied. The skin entry points for approaching the anatomic target points of the segmental medial branches of Right C3,C4,C5, and C6 were identified with fluoroscopy and marked. The skin at the target site area was thoroughly prepared with Chlorhexadine. The skin was then draped. Next, a 25 gauge 3.5 spinal needle was placed under fluoroscopic guidance down on to the target point (the articular pillar) for each respective segmental medial branch. Position was confirmed in A/P and lateral views. Aspiration revealed no blood or clear fluid. Next, 0.25ml of omnipaque 240 was injected at each level. No contrast following a vascular or neural pattern was visualized under continuous fluoroscopy. Next, 0.25 ml of preservative-free 0.5% bupivicaine was injected at each level. (49 mls of Omnipaque was wasted) There was no unusual discomfort expressed by Jamal. The needles were withdrawn without difficulty. Jamal was observed and was without hemodynamic, neurologic, or allergic reactions.? Fluoroscopic images were digitally archived. Jamal's vital signs were stable throughout the procedure and were as recorded in the doc flowsheet by the nursing staff. Provacative testing using the Modified Santana's facet loading test- Right side Directly before the block VAS (0-10) = 8/10 5 minutes after the block VAS (0-10) = 2/10 Percentage relief obtained with this diagnostic block 80% Any improved physical functioning directly after the blocks? Able to move his neck much better Follow up plans and appointments were discussed with Jamal. Jamal was instructed to keep careful note of how the usual pain was modified by these injections. Specifically, to keep a pain diary for the next 4 hours using a numeric pain scale of 0-10 and report these results. Post procedure instruction was given as documented in the nursing documentation and having met discharge criteria, the patient was discharged from the [facility]. Based on the medial branches blocked today, if Jamal has adequate relief and we are able to proceed to radiofrequency ablation, the treatment should result in the denervation of the Right C3-C4, C4-C5, and C5-C6 facet joints. We would expect to denervate a total of 3 facets during the radiofrequency ablation. COMMENTS: No apparent complications. Post-procedure pain: VAS= 2/10. Jamal will call back with 0-4 hour post-procedure pain scores. I personally performed the entire procedure. RILEY TAPIA DO, MPH ABPM&R-subspecialty board certification in Pain Medicine [facility] [facility]
== END 2023-04-11 11:31 | disposition home or self-care (01) ==
LOC: PC 11:30
PROVIDERS: PCP Nurse Practitioner Family; Visit Provider Preventive Medicine Occupational Medicine
DX: M47.812 Spondylosis without myelopathy or radiculopathy, cervical region (principal)
CPT/HCPCS: 00123; 64490; 64491; 64492; 72040; Q9967

== ENCOUNTER 2023-06-26 15:25 | Outpatient (CLI) | payer MEDICAID, SELFPAY ==
--- NOTE | 2023-06-26 15:15 | DI.RAD_ITS ---
Exam(s) XR PAIN CLINIC CERVICAL SP 2V EXAM: XR PAIN CLINIC CERVICAL SP 2V CLINICAL HISTORY: DX: Cervical spondylosis. TECHNIQUE: Fluoroscopy was provided for the referring physician for guidance with performing pain cl inic injection procedure. COMPARISON: No exams were available for comparison FINDINGS: Please see procedure note for details. Fluoro time: 32.5 seconds RADIATION DOSE DELIVERED: aslhi iFtch= 3.57 mGy
[2023-06-26 15:34] VITALS: BP 116/69; PULSE 61; RESP 20; TEMP 36.6; O2SAT 96
--- NOTE | 2023-06-26 15:49 | PDOC.PAIN_ITS ---
Date of service: 06/26/23 Time of Service: 15:46 Pain Managment Procedure Note Procedure Note Procedure Note: PROCEDURE NOTE RIGHT SIDED CERVICAL MEDIAL BRANCH BLOCKS Date of Service: June 26, 2023 Patient: Jamal Evans Provider: Riley Tapia DO, MPH Jamal Evans has been referred to the [facility] for cervical medial branch blocks. Pre-operative diagnosis: Cervical Spondylosis without Myelopathy Post-operative diagnosis: Same Pre-procedure pain: VAS= 9/10 COMMENTS: He did well with his first CMBBs at the right C3-C6 Jamal? was interviewed and the medical records were reviewed. There were no medical, pharmacologic, radiographic or other structural contraindications to attempting fluoroscopically guided local anesthetic cervical medial branch blocks. Risks and potential side effects were discussed. I also discussed the potential benefit(s) of the procedure with Jamal, and voiced concerns were addressed. After Jamal was completely informed about the procedure, the printed consent form was signed. A standard time-out procedure was performed. Jamal was placed in the lateral decubitus position on the fluoroscopy table with the effected side up. Automated blood pressure cuff and pulse oximeter were applied. The skin entry points for approaching the anatomic target points of the segmental medial branches of Right C3,C4,C5 and C6 were identified with fluoroscopy and marked. The skin at the target site area was thoroughly prepared with Chlorhexadine. The skin was then draped. Next, a 25 gauge 3.5 spinal needle was placed under fluoroscopic guidance down on to the target point (the articular pillar) for each respective segmental medial branch. Position was confirmed in A/P and lateral views. Aspiration revealed no blood or clear fluid. Next, 0.25ml of omnipaque 240 was injected at each level. No contrast following a vascular or neural pattern was visualized under continuous fluoroscopy. Next, 0.25 ml of preservative-free 0.5% bupivicaine was injected at each level. (49 mls of Omnipaque was wasted) There was no unusual discomfort expressed by Jamal. The needles were withdrawn without difficulty. Jamal was observed and was without hemodynamic, neurologic, or allergic reactions.? Fluoroscopic images were digitally archived. Jamal's vital signs were stable throughout the procedure and were as recorded in the doc flowsheet by the nursing staff. Provacative testing using the Modified Santana's facet loading test- Right side Directly before the block VAS (0-10) = 9/10 5 minutes after the block VAS (0-10) = 6/10 Percentage relief obtained with this diagnostic block 40% Any improved physical functioning directly after the blocks? Able to move the neck better Follow up plans and appointments were discussed with Jamal. Jamal was instructed to keep careful note of how the usual pain was modified by these injections. Specifically, to keep a pain diary for the next 4 hours using a numeric pain scale of 0-10 and report these results. Post procedure instruction was given as documented in the nursing documentation and having met discharge criteria, the patient was discharged from the [facility]. Based on the medial branches blocked today, if Jamal has adequate relief and we are able to proceed to radiofrequency ablation, the treatment should result in the denervation of the Right C3-C4, C4-C5, and C5-C6 facet joints. We would expect to denervate a total of 3 facets during the radiofrequency ablation. COMMENTS: No apparent complications. Post-procedure pain: VAS= 6/10. Jamal will call back with 0-4 hour post-procedure pain scores. I personally performed the entire procedure. RILEY TAPIA DO, MPH ABPM&R-subspecialty board certification in Pain Medicine [facility] [facility]
[2023-06-26 16:28] VITALS: BP 105/65; PULSE 73; RESP 17; O2SAT 100
[2023-06-26] MEDS: Bupivacaine 0.5% Pres-Free 10 ML VIAL IJ (16:36)
[2023-06-26] MEDS: Omnipaque 240 MG/ML 50 ML BTL IJ (16:37)
[2023-06-26] MEDS: Nerve Block Tray 1 EACH MC (16:38)
== END 2023-06-26 15:26 | disposition home or self-care (01) ==
LOC: PC 15:25
PROVIDERS: PCP Nurse Practitioner Family; Visit Provider Preventive Medicine Occupational Medicine
DX: M47.812 Spondylosis without myelopathy or radiculopathy, cervical region (principal)
CPT/HCPCS: 123; 64490; 64491; 64492; 72040; 00123; J0665; Q9967

== ENCOUNTER 2023-09-25 07:33 | Outpatient (CLI) | payer MEDICAID, SELFPAY ==
[2023-09-25 07:39] VITALS: BP 117/75; PULSE 60; RESP 20; TEMP 36.8; O2SAT 100
[2023-09-25] MEDS: fentaNYL 100 MCG/2 ML VIAL IVP (08:15)
[2023-09-25] MEDS: Midazolam 2 MG/2 ML VIAL IVP (08:15)
--- NOTE | 2023-09-25 08:49 | DI.RAD_ITS ---
Exam(s) XR PAIN CLINIC CERVICAL SP 2V EXAM: XR PAIN CLINIC CERVICAL SP 2V CLINICAL HISTORY: DX: Cervical spondylosis TECHNIQUE: 2D and realtime digital imaging was performed. CONTRAST MATERIAL: Refer to procedure report. COMPARISON: No exams were available for comparison FINDINGS: Fluoroscopy was provided for Dr. Tapia during the performance of a cervical radiofrequency ablation. Please refer to the procedure report for complete details. Ka,r=4.14 mGy IMPRESSION: RADIATION DOSE DELIVERED: 0.0 0.0 0
[2023-09-25] MEDS: Lidocaine 2% Pres-Free 5 ML VIAL IJ (08:54)
[2023-09-25] MEDS: Nerve Block Tray 1 EACH MC (08:54)
[2023-09-25] MEDS: Bupivacaine 0.5% Pres-Free 10 ML VIAL IJ (08:55)
[2023-09-25] MEDS: Dexamethasone Sod. Phos./Pres-Free 10 MG/ML VIAL IJ (08:56)
[2023-09-25] MEDS: Lactated Ringers 500 ML 80 ML IV (08:59)
[2023-09-25 09:00] VITALS: BP 126/92; PULSE 62; RESP 18; O2SAT 100
--- NOTE | 2023-09-30 05:53 | PDOC.PAIN_ITS ---
Date of service: 09/25/23 Time of Service: 09:20 Pain Managment Procedure Note Procedure Note Procedure Note: PROCEDURE NOTE RIGHT Cervical Radiofrequency Ablation Date of Service: September 25, 2023 Patient:? Jamal Evans? Provider:? Riley Tapia DO, MPH Jamal Evans has been [facility] to [facility] RIGHT Cervical Radiofrequency Ablation with the [employer] Machine.? Pre Operative Diagnosis: Cervical Spondylosis without Myelopathy Post Operative Diagnosis: Same Pre procedure pain; VAS= 9/10 Comments: He had successful CMBBs on 04/11/23 and 06/26/2023 PROCEDURE: 1. Right C3-C4 facet joint radiofrequency denervation 2. Right C4-C5 facet joint radiofrequency denervation 3. Right C5-C6 facet joint radiofrequency denervation Tariqwas interviewed and the medical record was reviewed.? There were no medical, pharmacologic, radiographic or other structural contraindications to attempting fluoroscopically guided RIGHT Cervical Radiofrequency Ablation.?Risks and expected side effects as well as potential benefit of the procedure were reviewed with Jamal, and the patient's voiced concerns were addressed.? The printed consent form was signed.? Standard time-out procedure was performed. Jamal was brought to the procedure suite and placed on the exam table in a comfortable lateral recumbent position. A grounding pad was placed on the left abdomen. The place for the needle placement was obtained by manual palpation as well as radiographic confirmation. The sterile field was prepped by chlorhexidine and sterile drapes. Local anesthesia, both superficial and deep was provided by local infiltration of 3 ml Lidocaine 1%. Using fluoroscopic guidance, A 17g 50 mm radiofrequency introducer needle with a 2 mm active tip was placed overlying the right C3 cervical vertebra from the lateral approach and was advanced until bony contact was felt with the articular pillar. Attempted aspiration revealed no blood or cerebrospinal fluid. Motor testing was then performed with 2.0 volts and no upper extremity motor stimulation was observed. 1 ml of 2% Lidocaine was injected through the RF needle. A radiofrequency lesion of the Right medial branch of C3 was then performed at 80 degrees Celsius for 2 minutes and 30 seconds. There was no unusual discomfort expressed by Jamal. The needles were withdrawn without difficulty. Jamal was observed and was without hemodynamic, neurologic, or allergic reactions. Fluoroscopic images were digitally archived. The same procedure was repeated for Right C4, C5 and C6 medial branches. POST PROCEDURE EVALUATION: IMPRESSION: 1. Medication given is documented in the MAR 2. Follow up plan: Jamal to contact [facility] needed. This procedure may be repeated if the patient achieves at least 50% improvement in pain and/or function for at least 6 months. 3. Estimated Blood Loss: <5ml 4. Fluoroscopy time: Documented in the EMR Follow up plans and appointments were discussed with Jamal. Post procedure instruction was given as documented in nursing documentation and having met discharge criteria, Jamal was discharged from the [facility]. COMMENTS: No apparent complications. Post-procedure pain: VAS= 2/10. I personally performed this entire procedure. RILEY TAPIA DO, MPH ABPM&R - Subspecialty board certification in Pain Medicine [facility]
== END 2023-09-25 07:34 | disposition home or self-care (01) ==
LOC: PC 07:34
PROVIDERS: PCP Nurse Practitioner Family; Visit Provider Preventive Medicine Occupational Medicine
DX: M47.812 Spondylosis without myelopathy or radiculopathy, cervical region (principal)
CPT/HCPCS: 64633; 64634; 72040; J0665; J1100; J2250; J3010

== ENCOUNTER 2023-10-09 07:37 | Outpatient (CLI) | payer MEDICAID, SELFPAY ==
--- NOTE | 2023-10-08 13:15 | DI.RAD_ITS ---
Exam(s) XR PAIN CLINIC LUMBAR SP 2V EXAM: XR PAIN CLINIC LUMBAR SP 2V CLINICAL HISTORY: DX: Lumbar spondylosis TECHNIQUE: 2D and realtime digital imaging was performed. CONTRAST MATERIAL: Refer to procedure report. COMPARISON: No exams were available for comparison FINDINGS: Fluoroscopy was provided for Dr. Tapia during the performance of a bilateral lumbar radiofrequency ab lation. Please refer to the procedure report for complete details. Ka,r=12.8 mGy IMPRESSION: RADIATION DOSE DELIVERED: 0.0 0.0 0
[2023-10-09 07:39] VITALS: BP 121/67; PULSE 67; RESP 20; TEMP 36.7; O2SAT 97
[2023-10-09] MEDS: Midazolam 2 MG/2 ML VIAL IVP (08:20)
[2023-10-09] MEDS: fentaNYL 100 MCG/2 ML VIAL IVP (08:20)
--- NOTE | 2023-10-09 09:08 | PDOC.PAIN_ITS ---
Date of service: 10/09/23 Time of Service: 09:08 Pain Managment Procedure Note Procedure Note Procedure Note: PROCEDURE NOTE BILATERAL LUMBAR RADIOFREQUENCY ABLATION Date of Service: October 09, 2023 Patient:? Jamal Evans? Provider:? Riley Tapia DO, MPH Jamal Evans [facility] Bilateral Lumbar Radiofrequency Ablation with the [employer] Machine.? Pre Operative Diagnosis: Lumbosacral Spondylosis without Myelopathy Post Operative Diagnosis: Same Pre procedure pain; VAS= 9/10 Comments: He last had this procedure on 05/09/22 and had >12 months of >50% pain improvement PROCEDURE: Radiofrequency Ablation of medial branches - bilateral L3, L4, L5 and lateral branches of bilateral S1. Jamal?was interviewed and the medical record was reviewed.? There were no medical, pharmacologic, radiographic or other structural contraindications to attempting fluoroscopically guided BILATERAL Lumbar Radiofrequency Ablation.?Risks and expected side effects as well as potential benefit of the procedure were reviewed with Jamal, and the patient's voiced concerns were addressed.? The printed consent form was signed.? Standard time-out procedure was performed. Jamal was brought into the fluoroscopy suite and positioned into the prone position on the fluoroscopy table and allowed to adjust to a position of comfort. A grounding pad was placed on the left abdomen. The sterile field was prepared using chlorhexidine preparation of the skin and sterile draping. Local anesthesia superficial and deep was provided by local infiltration of 2% lidocaine. A 17g 75 mm radiofrequency introducer needle was placed to the planned anatomic targets guided with intermittent fluoroscopy with a perpendicular approach to terminally place at the junction of the superior articular process and the transverse process of the bilateral L4, L5, the base of the sacral ala on the bilateral for the L5 medial branch nerve and the area between base of the sacral ala to the S1 foramen bilaterally. The stylets were removed and radiofrequency probes with a 4mm active tip were then inserted. Needle tip position of the pro bes was verified in the AP, oblique, and lateral views. At each site, the medial branch nerve was stimulated at 2 Hz to a maximum 1-2 volts determined to finalize safe needle and electrode placement. The patient was awake and responsive during this portion of the procedure. Each target was anesthetized with 1-2 mL of 2 % Lidocaine for anesthesia for lesioning and then each target was lesioned at 80 degrees Celsius for 2 minutes and 30 seconds. Tissue impedances were noted to be between 250 and 500 Ohms. After the procedure I injected 1/4 cc of Depomedrol (40 mg/cc) followed by 1 cc of 0.5% Bupivacaine at each segmental sensory nerve. There was no unusual discomfort expressed by Jamal. The needles were withdrawn without difficulty and bandages placed over the needle placement sites, the patient was observed and was without hemodynamic, neurologic, or allergic reactions. Fluoroscopic images were digitally archived. POST PROCEDURE EVALUATION: IMPRESSION: 1. Summary of procedure. Medication given is documented in the MAR. 2. Follow up plan: Jamal to contact [facility] as needed.?This procedure may be repeated if the patient achieves at least 50% improvement in pain/function for at least 6 months. 3. Estimated Blood Loss: <5 mls 4. Fluoroscopy time: Documented in the EMR. Follow up plans and appointments were discussed with the Jamal. Post procedure instruction was given as documented in nursing documentation and having met discharge criteria, Jamal was [facility] from the [facility]. COMMENTS: No apparent complications. Post-procedure pain: VAS= 2/10. I personally completed the entire procedure. RILEY TAPIA DO, MPH ABPM&R - Subspecialty board certification in Pain Medicine [facility] [facility]
[2023-10-09] MEDS: Lactated Ringers 500 ML 80 ML IV (09:10)
[2023-10-09] MEDS: Nerve Block Tray 1 EACH MC (09:11)
[2023-10-09] MEDS: Lidocaine 2% Multi-Dose 20 ML VIAL IJ (09:11)
[2023-10-09] MEDS: Bupivacaine 0.5% Pres-Free 10 ML VIAL IJ (09:11)
[2023-10-09] MEDS: methylPREDNISolone ACETATE 40 MG/ML VIAL IJ (09:12)
[2023-10-09 09:22] VITALS: BP 140/95; PULSE 78; RESP 11; O2SAT 100
== END 2023-10-09 07:38 | disposition home or self-care (01) ==
LOC: PC 07:37
PROVIDERS: PCP Nurse Practitioner Family; Visit Provider Preventive Medicine Occupational Medicine
DX: M47.817 Spondylosis without myelopathy or radiculopathy, lumbosacral region (principal)
CPT/HCPCS: 64635; 64636; 72100; J0665; J1010; J2003; J2250; J3010

== ENCOUNTER 2023-12-04 12:48 | Outpatient (CLI) | payer MEDICAID, SELFPAY ==
--- NOTE | 2023-12-04 06:00 | DI.RAD_ITS ---
Exam(s) XR PAIN CLINIC CERVICAL SP 2V EXAM: XR PAIN CLINIC CERVICAL SP 2V CLINICAL HISTORY: Cervical Spondylosis TECHNIQUE: 2D and realtime digital imaging was performed. Radiologist not present. CONTRAST MATERIAL: None. COMPARISON: No exams were available for comparison FINDINGS: Fluoroscopy was provided for pain management therapy. Please refer to procedure report or details. Radiation Exposure Index: Ka,r=3.80 mGy IMPRESSION: As above. RADIATION DOSE DELIVERED:
[2023-12-04 12:55] VITALS: BP 119/68; PULSE 63; RESP 20; TEMP 36.7; O2SAT 98
[2023-12-04] MEDS: fentaNYL 100 MCG/2 ML VIAL IVP (13:40)
[2023-12-04] MEDS: Midazolam 2 MG/2 ML VIAL IVP (13:40)
[2023-12-04] MEDS: Lactated Ringers 500 ML 80 ML IV (13:42)
[2023-12-04 14:10] VITALS: BP 100/71; BP 109/76; PULSE 75; RESP 17; O2SAT 100
[2023-12-04 14:15] VITALS: BP 102/70; PULSE 75; RESP 17; O2SAT 100
[2023-12-04 14:20] VITALS: BP 112/76; PULSE 75; RESP 18
[2023-12-04] MEDS: Nerve Block Tray 1 EACH MC ×2 (14:24→14:27)
[2023-12-04] MEDS: Bupivacaine 0.5% Pres-Free 10 ML VIAL IJ (14:25)
[2023-12-04] MEDS: Dexamethasone Sod. Phos./Pres-Free 10 MG/ML VIAL IJ (14:26)
[2023-12-04] MEDS: Lidocaine 2% Pres-Free 5 ML VIAL IJ (14:27)
--- NOTE | 2023-12-05 09:53 | PDOC.PAIN_ITS ---
Date of service: 12/04/23 Time of Service: 14:50 Pain Managment Procedure Note Procedure Note Procedure Note: PROCEDURE NOTE LEFT Cervical Radiofrequency Ablation Date of Service: December 04, 2023 Patient:? Jamal Evans? Provider:? Riley Tapia DO, MPH Jamal Evans [facility] LEFT Cervical Radiofrequency Ablation with the [employer] Machine.? Pre Operative Diagnosis: Cervical Spondylosis without Myelopathy Post Operative Diagnosis: Same Pre procedure pain; VAS= 9/10 Comments: He had >6 months of >50% pain relief with the last Cervical RFA at the left C3-C6 levels. PROCEDURE: 1. Left C3-C4 facet joint radiofrequency denervation 2. Left C4-C5 facet joint radiofrequency denervation 3. Left C5-C6 facet joint radiofrequency denervation Tariqwas interviewed and the medical record was reviewed.? There were no medica l, pharmacologic, radiographic or other structural contraindications to attempting fluoroscopically guided LEFT Cervical Radiofrequency Ablation.?Risks and expected side effects as well as potential benefit of the procedure were reviewed with Jamal, and the patient's voiced concerns were addressed.? The printed consent form was signed.? Standard time-out procedure was performed. Jamal was brought to the procedure suite and placed on the exam table in a comfortable lateral recumbent position. A grounding pad was placed on the left abdomen. The place for the needle placement was obtained by manual palpation as well as radiographic confirmation. The sterile field was prepped by chlorhexidine and sterile drapes. Local anesthesia, both superficial and deep was provided by local infiltration of 3 ml Lidocaine 1%. Using fluoroscopic guidance, A 17g 50 mm radiofrequency introducer needle with a 2 mm active tip was placed overlying the left C3 cervical vertebra from the lateral approach and was advanced until bony contact was felt with the articular pillar. Attempted aspiration revealed no blood or cerebrospinal fluid. Motor testing was then performed with 2.0 volts and no upper extremity motor stimulation was observed. 1 ml of 2% Lidocaine was injected through the RF needle. A radiofrequency lesion of the Left medial branch of C3 was then performed at 80 degrees Celsius for 2 minutes and 30 seconds. There was no unusual discomfort expressed by Jamal. The needles were withdrawn without difficulty. Jamal was observed and was without hemodynamic, neurologic, or allergic reactions. Fluoroscopic images were digitally archived. The same procedure was repeated for left C4, C5 and C6 medial branches. POST PROCEDURE EVALUATION: IMPRESSION: 1. Medication given is documented in the MAR 2. Follow up plan: Jamal to contact [facility] needed. This procedure may be repeated if the patient achieves at least 50% improvement in pain and/or function for at least 6 months. 3. Estimated Blood Loss: <5ml 4. Fluoroscopy time: Documented in the EMR Follow up plans and appointments were discussed with Jamal. Post procedure instruction was given as documented in nursing documentation and having met discharge criteria, Jamal was [facility] from the [facility]. COMMENTS: No apparent complications. Post-procedure pain: VAS= 1/10. I personally performed this entire procedure. RILEY TAPIA DO, MPH ABPM&R - Subspecialty board certification in Pain Medicine [facility] [facility]
== END 2023-12-04 12:49 | disposition home or self-care (01) ==
LOC: PC 12:48
PROVIDERS: PCP Nurse Practitioner Family; Visit Provider Preventive Medicine Occupational Medicine
DX: M47.812 Spondylosis without myelopathy or radiculopathy, cervical region (principal)
CPT/HCPCS: 64633; 64634; 72040; J0665; J1100; J2250; J3010

== ENCOUNTER 2024-01-10 00:34 | Outpatient (CLI) | payer MEDICAID, SELFPAY ==
--- OUTSIDE RECORDS SUMMARY | 2024-01-10 00:41 | XMS_ITS | Encounter Summary ---
Author Organization [facility] Address [address] [place] [address] Care Team Providers Care Director Of Assisted Living Name Role Phone Remigio Teixeira MD Primary Care Provider [phone] Reason for Visit * Reason Comments Neck Pain radiates right shoul angelica blade * Consult (Routine) - Specialty Report Received Specialty Diagnoses / Procedures Referred By [facility] [place] [facility] Referred To Contact Pain Medicine Diagnoses Neck pain Arlette Cavazos PA-C [address] [facility] [place] [address] [facility] [address] [place] [address] Referral ID Status Reason Start Date Expiration Date Visits Requested Visits Authorized [id number] Specialty Report Received Specialty Services Required 03/15/2014 1 1 Encounter Details Date Type Department Care Team (Latest Contact Info) Description 03/31/2014 10:30 EST Office Visit [facility] Interventional Pain [address] [place] [address] Adelfo Campa, DO [address] [facility] [address] [place] [address] Leyla Mccoy MD [address] [place] [phone] Cervical spondylosis without myelopathy (Primary Dx); Facet arthropathy, cervical; Acquired spondylolisthesis Discharge Disposition: Auto Discharge Social History Tobacco Use Types Packs/Day Years Used Date Smoking Tobacco: Never Smokeless Tobacco: Never Alcohol Use Standard Drinks/Week Comments Yes 0 (1 standard drink = 0.6 oz pur e alcohol) occ Sex and Gender Information Value Date Recorded Sex Assigned at Not on file Gender Identity Not on file Sexual Orientation Not on file documented as of this encounter Last Filed Vital Signs Vital Sign Reading Time Taken Comments Blood Pressure 121/77 03/31/2014 1118 EST Pulse 67 03/31/2014 1118 EST Temperature 35.9 ??C (96.7 ??F) 03/31/2014 1034 EST Respiratory Rate 16 03/31/2014 1118 EST Oxygen Saturation - - Inhaled Oxygen Concentration - - Weight 63.5 kg (140 lb) 03/31/2014 1034 EST Height 177.8 cm (5' 10) 03/31/2014 1034 EST Body Mass Index 20.09 03/31/2014 1034 EST documented in this encounter Discharge Diagnoses Diagnosis 721.3 LUMBOSACRAL SPONDYLOSIS[ICD-9-CM] 721.0 CERVICAL SPONDYLOSIS[ICD-9-CM] 715.00 GENERAL OSTEOARTHROSIS..[ICD-9-CM] documented in this encounter Patient Instructions * Patient Instructions* Christal Meraz - 03/31/2014 11:04 EST [facility] [place] [id number] Patient Instructions You have had your bilateral cervical Facet Steroid Injection. The purpose of this procedure has been to place medication which may help relieve your pain. Steroid may be used to decrease the swellingand nerve irritation which may be causing your pain. The following information should help you over the next few days regarding what you may expect. Please take it easy for the rest of today. DO NOT drive a car for the remainder of the day. If you feel sore where the needle(s) entered for the block or develop a flare-up of pain over the next few days, please use ice on the area. You may leave the ice on for up to 20 minutes at a time. Do not use heat, as this may cause swelling. As long as your primary doctor has indicated no restrictions, you may take a mild pain medicine, such as acetaminophen (Tylenol), ibuprofen (Advil, Nuprin, Motrin IB, etc.) or aspirin, if needed. The steroid injection usually takes a few days to become effective. On average, you may notice somerelief in 3 -5 days. However, it may take up to 10 - 14 days to know whether the injection was helpful. If the block causes numbness/weakness, it should wear off within a few hours. If the area that the needle(s) were inserted becomes hot, red, swollen, or increasingly tender, or if you develop a fever (100.5 or greater) or chills along with these symptoms, please call our office immediately. If you develop increasingly severe neck/back pain, continued numbness or weakness of the arms/legs or changes in your bladder or bowel functions, please call our office at once. Instructions for follow-up If you have any questions about your block, please call Christal Meraz Patient Education Topic: bilateral cervical facet steroid injection Method: Handout and Verbal Taught to: Patient Barriers: None Outcomes: independent and verbalized understanding Signature: Christal Meraz documented in this encounter Discharge Disposition Disposition Code Departure Means Destination Auto Discharge documented in this encounter Progress Notes * Leyla Mccoy MD - 04/01/2014 1255 EST Patient Name: Jamal Evans : 1965 Date of Service: 04/01/2014 Powder Blender: Adelfo Campa DO Embroidery Machine Operator: Vinay Mccoy MD Interval History: Mr. Evans presents at the request of Arlette Cavazos for evaluation and treatment of his chronic neck pain. The details of the current complaint are thoroughly described in the consultation notes from their last encounter on 03/15/14 including pain onset, location, course, workup, therapeutic attempts, and associated functional limitations. The patient reports no recent changes in the character, quality, or distribution of the pain. There are no recent onset of new associated symptoms such as changes instrength, sensation, or bladder control. His pain has been present for 3-4 years, but progressively has worsened over past year. His pain ismid cervical, some pain on the left paraspinous region. The worst pain is in the right paraspinous region, and radiates down right scapula. Prolonged sitting and driving, as well as certain movementsof neck such as extension and rotating to the right. He takes OTC pain medications. Other modalities:PT Cervical xray: Craniocervical and atlantoaxial alignment appear anatomic on these lateral projections. There is mild anterolisthesis of C3 on C4 seen on the flexion view only. Mild anterolisthesis of C4 on C5 is also seen only on flexion. Very slight retrolisthesis of C6 on C7 is similar between flexion and extension. Vertebral body heights are preserved. There is disc space narrowing, anterior marginal osteophyte formation and uncovertebral spurring at C5-C6 and C6-C7 consistent with degenerative disc disease. This does not appear markedly changed compared with the 2013 cervical spine films. Although disc space height is relatively well-maintained at C3-C4 and C4-C5, there are uncovertebral spurs presentat these levels as well. Multilevel facet hypertrophy is again demonstrated. No Known Allergies ROS: CONSTITUTIONAL: Patient does not report fevers, nausea, vomiting. NEURO/EYES: Patient does not report headaches, dizziness, or visual changes. HEME: Patient does not report any known coagulopathies. PULM/CARDIAC: Patient does not report shortness of breath or chest pain. GI/: Patient does not report bowel or bladder incontinence. Physical Examination: Vital signs: Blood pressure 121/77, pulse 67, temperature 35.9 ??C (96.7 ??F), temperature source Tympanic, resp. rate 16, height 177.8 cm (70), weight 63.504 kg (140 lb). GENERAL: Patient is an otherwise pleasant male. Patient is alert and oriented x 3. Appropriate in conversation. NAD. The patient does appear his stated age of 48 y.o.. The pain syndrome is clinicallyrelayed without embellishment. he rises from a seated position without difficulty. SKIN: WNL. Warm and dry. No lesions, apparent rashes, bruising or petechiae. No signs of infection in the cervical region. NEURO: CN II-XII are grossly intact. Motor strength is 5/5 throughout all motor groups in bilateral upper extremities. Sensation is intact and symmetrical to light touch throughout bilateral upper extremities. neg Spurlings test. EXTREMITIES: No clubbing, cyanosis, or edema in upper extremities MUSCULOSKELETAL: ROM was full with flexion, extension and lateral rotation to left, but slightly limited on right positive Facet loading maneuvers with extension of cervical spine. mildly to palpation of cervical spine and right trapezius muscle PULM: Non labored breathing. Assessment:Patient is a 48 y.o. year old male with a chronic pain syndrome and a primary complaint of neck pain. This pain has not responded to conservative/interventional therapy. Associated diagnoses: Encounter Diagnoses Name Primary? Cervical spondylosis without myelopathy Yes ??? Facet arthropathy, cervical ??? Acquired spondylolisthesis Plan: Proceed with diagnostic and therapeutic facet joint injections at bilateral C5- C6 and C6-C7 Follow up: as needed for further evaluation and within 24 hrs by telephone to report results of diagnostic injection He will follow up with Oliver Cavazos post injection Procedure: The patient gave informed written consent to proceed with this procedure following a detailed discussion of the risks and benefits associated with cervical facet joint injections. The patient was then placed in the prone position, the skin over the neck was prepped with chlorhexadine, and the site w as draped with sterile towels. Strict sterile technique was maintained throughout the procedure. A abraham moment was performed with full staff present to identify the patient, verify the procedure being performed, and review allergies. Flouroscopy was used to identify the appropriate anatomy and symptomatic facet joints. The skin andsubcutaneous tissue were anesthetized with 2% lidocaine. A 22 guage 3.5 inch spinal needle was inserted, under fluoroscopic guidance using coaxial technique, into each of the aforementioned facet joints. After negative aspiration, each joint was injected with 0.5 ml???s of 0.5% Bupivacaine and 20 mg Depo-Medrol. The needles were then flushed and removed. There were no paresthesia during needle placement and aspiration was negative at all times. The patient tolerated the procedure well and there were no apparent complications. Written and verbal discharge instructions were reviewed with the patient prior to discharge. Leyla Mccoy MD Attending attestation: I saw and examined the patient with the resident/fellow. I agree with the findings and plan of care documented in the resident's/fellow's note. I was present and participated during the entire procedure. Adelfo Campa DO * Krista De Paz RN - 03/31/2014 1036 EST [facility] Rooming Note Does patient have a Glucose And Syrup Weigher? yes Is patient NPO? (Solids since midnight & liquids for 4 hrs) 03/30/14 solid 0600 black coffee Blood Thinners: Is patient on Blood Thinners? no If yes, taking? If stopped, who authorized stopping? Related comments: Infections: Any recent infections, fever of illnesses? no If on antibiotics, is it 7-10 days past the date of completion of antibiotics? : (for females of child-bearing age) Is there a chance current ? Other: documented in this encounter Plan of Treatment Not on file documented as of this encounter Visit Diagnoses Diagnosis Cervical spondylosis without myelopathy- Primary Facet arthropathy, cervical Cervical spondylosis without myelopathy Acquired spondylolisthesis documented in this encounter Administered Medications Inactive Administered Medications - up to 3 most recent administrations Medication Order MAR Action Action Date Dose Rate Site bupivacaine (PF) (MARCAINE) 0.5 % (5 mg/mL) injection 10 mg 10 mg (2 mL), intra-articular, NOW X1, 1 dose, On Sat03/31/14 at 1230, Routine Given by Other 03/31/2014 12:03 EST 10 mg methylPREDNISolone ACETATE (DEPO-MEDROL) injection 80 mg 80 mg, intra-articular, NOW X1, 1 dose, On Sat03/31/14 at 1230, Routine Given by Other 03/31/2014 12:03 EST 80 mg documented in this encounter Historical Medications * This list may reflect changes made after this encounter. Medication Sig Dispensed Refills Start Date End Date acetaminophen (TYLENOL) 325 mg tablet Take 650 mg by mouth as needed for Pain. added in this encounter Care Teams Director Of Assisted Living Relationship Specialty Start Date End Date Remigio Teixeira MD [address] [place] [id number] PCP - General 10/19/10 documented as of this encounter
--- OUTSIDE RECORDS SUMMARY | 2024-01-10 00:41 | XMS_ITS | Encounter Summary ---
Author Organization [facility] Address [address] [place] [address] Care Team Providers Care Graduate Engineer Name Role Phone Remigio Teixeira MD Primary Care Provider [phone] Encounter Details Date Type Department Care Team (Late st Contact Info) Description 11/09/2010 Results Only Imaging [facility] [address] [place], [place] [id number] Grady Nunez MD Social History Tobacco Use Types Packs/Day Years Used Date Smoking Tobacco: Never Assessed Sex and Gender Information Value Date Recorded Sex Assigned at Not on file Gender Identity Not on file Sexual Orientation Not on file documented as of this encounter Plan of Treatment Pending Results Name Type Priority Associated Diagnoses Date /Time OUTSIDE CD - OTHER NEURO Imaging 11/09/2010 11:31 EDT OUTSIDE CD - MRI NEURO Imaging 11:31 EDT documented as of this encounter Visit Diagnoses Not on filedocumented in this encounter Care Teams Graduate Engineer Relationship Specialty Start Date End Date Remigio Teixeira MD [address] [place] [address] PCP - General 10/19/10 documented as of this encounter
--- OUTSIDE RECORDS SUMMARY | 2024-01-10 00:41 | XMS_ITS | Encounter Summary ---
Author Organization [facility] Address [address] [place] [address] Care Team Providers Care Cage Fighter Name Role Phone Remigio Teixeira MD Primary Care Provider [phone] Encounter Details Date Type Department Care Team (Late st Contact Info) Description 02/23/2014 Results Only Imaging [facility] [phone] Unknown, ProviderMD Social History Tobacco Use Types Packs/Day Years [...] Type Priority Associated Diagnoses Date /Time OUTSIDE IMAGES - OTHER NEURO Imaging 02/23/2014 9:38 EDT documented as of this encounter Visit Diagnoses Not on filedocumented in this encounter Care Teams Cage Fighter Relationship Specialty Start Date End Date Remigio Teixeira MD [address] [place] [address] PCP - General 10/19/10 documented as of this encounter
--- OUTSIDE RECORDS SUMMARY | 2024-01-10 00:41 | XMS_ITS | Encounter Summary ---
Author Organization [facility] Address [address] [place] [address] Care Team Providers Care Associate Professor Of Musicology Name Role Phone Remigio Teixeira MD Primary Care Provider [phone] Reason for Referral * Consult, Test and Treat (Routine) - Closed Specialty Diagnoses / Procedures Referred By Tristian sims Referred To Contact Diagnoses Degeneration of lumbar or lumbosacral intervertebral disc Grady Nunez MD [address] [place] [phone] Referral ID Status Reason Start Date Expiration Date V isits Requested Visits Authorized [id number] Closed Specialty Services Required 12/05/2010 1 1 Question Answer Reason for Request: to see JODY [place] for postural sikh exercises Reason for Visit * Reason Comments Back Pain Encounter Details Date Type Department Care Team (Latest Contact Info) Description 12/05/2010 10:00 EDT Office Visit [facility] Spine Program - [address] [place] [address] Grady Nunez MD Degeneration of lumbar or lumbosacral intervertebral disc (Primary Dx) Social History Tobacco Use Types Packs/Day Years Used Date Smoking Tobacco: Never Smokeless Tobacco: Never Alcohol Use Standard Drinks/Week Comments Yes 0 (1 standard drink = 0.6 oz pur e alcohol) occ Sex and Gender Information Value Date Recorded Sex Assigned at Not on file Gender Identity Not on file Sexual Orientation Not on file documented as of this encounter Patient Instructions * Patient Instructions* Grady Nunez MD - 12/05/2010 10:58 EDT I will see you if needed 2nd to your pain increasing. I want you to try PT as I explained. documented in this encounter Progress Notes * Grady Nunez MD - 12/05/2010 1055 EDT Jamal Evans is being seen as a consultation from Dr. Puneet Perez. Chief Complaint Patient presents with ??? Back Pain The encounter diagnosis was Degeneration of lumbar or lumbosacral intervertebral disc. HPI Jamal is seen for primarily low back pain that he has had for several years, but in February 2010, he woke up with severe low back pain, no leg pain. He notices that he is more comfortable when he is standing, if he slightly leans forward then he is okay sitting. Sleep is poor as he is unable to lie on his stomach. He has not had any injuries. He is a self-employed corea with an orchard. He does most of the work himself, which can increase his pain quite a bit. On 04/10/10, he was having severe low back but no buttock or leg pain. His pain was a 7-8/10. His L MRI at [facility] on 04/20/2010, I have reviewed with him. It shows mild degenerative disk changes, particularly at L5-S1 witha small central disk herniation but no foraminal or central canal stenosis. Jamal wants to know if there is anything else that he should be doing now. Jamal also is having trouble with his right hand falling asleep. It awakens him at night several times. He does not have any numbness in his hands today. This is becoming an increasing problem for himas when he has the numbness, he has trouble working, but he is not interested in defining that diagnosis as suc now. Jamal has been treated for his back pain with both physical therapy and chiropractic treatment without significant help. Taking naproxen and glucosamine does not help him. Jamal is concerned about the future and what can be done to help his pain now. HPI There is no problem list on file for this patient. No past medical history on file. No past surgical history on file. History Substance Use Topics ??? Smoking status: Never Smoker ??? Smokeless tobacco: Never Used ??? Alcohol Use: Yes occ No family history on file. Current outpatient prescriptions Medication Sig Dispense Refill ??? Glucosamine Sulfate (GLUCOSAMINE) 500 mg Tab Take by mouth. Not on File Review of Systems Constitutional: Negative. HENT: Negative. Eyes: Positive for visual disturbance. Respiratory: Negative. Cardiovascular: Negative. Gastrointestinal: Negative. Genitourinary: Negative. Musculoskeletal: Positive for back pain. Skin: Negative. Neurological: Negative. Hematological: Negative. Psychiatric/Behavioral: Negative. Physical Exam Constitutional: He is oriented to person, place, and time. He appears well- developed and well-nourished. HENT: Head: Normocephalic. Eyes: Pupils are equal, round, and reactive to light. Cardiovascular: Normal rate. Pulmonary/Chest: Effort normal. Neurological: He is alert and oriented to person, place, and time. Back Exam Comments: The patient has a normal gait. The motor and sensory exam of both upper & lower extremities is normal. SLR is normal bilaterally. Reflexes of the biceps, triceps, knees and ankles are normal. Forward flexion at the waist is to 90 deg. Cervical ROM is normal.Meg and Mario test are abnormal. Neurologic Exam Mental Status Oriented to person, place, and time. Cranial Nerves CN III, IV, Pupils are equal, round, and reactive to light. Assessment Other Orders Placed This Visit Procedure ??? 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 He is having no significant pain in the office today. Given his findings on his positive Meg and Mario test, I would like tohave him seen for instructions in doing postural sikh. He can continue with the home programwith the understanding that should his symptoms increase significantly, I will reevaluate him or hemay call to talk with me. With regards to his symptoms for right carpal tunnel syndrome, he will discuss this with Dr Teixeira and seek local referral for evaluation and treatment if that is indicated. CC Dr. Teixeira documented in this encounter Plan of Treatment Scheduled Referrals Name Type Priority Associated Diagnoses Orde r Schedule AMB CONSULT PHYSICAL THERAPY Outpatient Referral Routine Degeneration of lumbar or lumbosacral intervertebral disc Ordered: 12/05/2010 documented as of this encounter Visit Diagnoses Diagnosis Degeneration of lumbar or lumbosacral intervertebral disc- Primary documented in this encounter Historical Medications * This list may reflect changes made after this encounter. Medication Sig Dispensed Refills Start Date End Date Glucosamine Sulfate (GLUCOSAMINE) 500 mg Tab Take by mouth. 1 05/15/2013 added in this encounter Care Teams Associate Professor Of Musicology Relationship Specialty Start Date End Date Remigio Teixeira MD [address] [address] PCP - General 10/19/10 documented as of this encounter
--- OUTSIDE RECORDS SUMMARY | 2024-01-10 00:41 | XMS_ITS | Encounter Summary ---
Author Organization [facility] Address [address] [place] [address] Care Team Providers Care Track Superintendent Name Role Phone Remigio Teixeira MD Primary Care Provider [phone] Reason for Visit * Reason Onset Date Comments Neck Pain 07/22/2019 Encounter Details Date Type Department Care Team (Late st Contact Info) Description 07/22/2019 Orders Only [facility] Spine Program - [address] [place] [address] Arlette Cavazos PA-C [address] [place] [address] [place] [address] Social History Tobacco Use Types Packs/Day Years Used Date Smoking Tobacco: Never Smokeless Tobacco: Never Alcohol Use Standard Drinks/Week Comments Yes 0 (1 standard drink = 0.6 oz pur e alcohol) occ Sex and Gender Information Value Date Recorded Sex Assigned at Not on file Gender Identity Not on file Sexual Orientation Not on file documented as of this encounter Plan of Treatment Not on file documented as of this encounter Visit Diagnoses Not on filedocumented in this encounter Care Teams Track Superintendent Relationship Specialty Start Date End Date Remigio Teixeira MD [address] [place], [place] [address] PCP - General 10/19/10 documented as of this encounter
--- OUTSIDE RECORDS SUMMARY | 2024-01-10 00:41 | XMS_ITS | Encounter Summary ---
Author Organization [facility] Address [address] [place] [address] Care Team Providers Care Is Support Analyst Name Role Phone Remigio Teixeira MD Primary Care Provider [phone] Encounter Details Date Type Department Care Team (Late st Contact Info) Description 11/02/2019 Orders Only [facility] Spine Program - [address] [place] [address] Arlette Cavazos PA-C [address] [facility] [place] [address] Social History Tobacco Use Types Packs/Day Years Used Date Smoking Tobacco: Never Smokeless Tobacco: Never Alcohol Use Standard Drinks/Week Comments Yes 0 (1 standard drink = 0.6 oz pur e alcohol) occ Interpersonal Safety Answer Date Record ed Physically Hurt Never 12/13/2019 Verbally Threaten Not on file 12/13/2019 Sex and Gender Information Value Date Recorded Sex Assigned at Not on file Gender Identity Not on file Sexual Orientation Not on file documented as of this encounter Functional Status Functional Status Response Date of Assess ment Because of a physical, menta l, or emotional condition, does this person have difficulty doing errands alone such as visiting a doctor's office or shopping? No 07/23/2019 Cognitive Status Response Date of Assessm ent Because of a physical, menta l, or emotional condition, does this person have serious difficulty concentrating, remembering, or making decisions? No 07/23/2019 documented as of this encounter Plan of Treatment Not on file documented as of this encounter Visit Diagnoses Not on filedocumented in this encounter Care Teams Is Support Analyst Relationship Specialty Start Date End Date Remigio Teixeira MD [address] [address] PCP - General 10/19/10 documented as of this encounter
--- OUTSIDE RECORDS SUMMARY | 2024-01-10 00:41 | XMS_ITS | Encounter Summary ---
Author Organization [facility] Address [address] [place] [address] Care Team Providers Care Color Printer Operator Name Role Phone Remigio Teixeira MD Primary Care Provider [phone] Encounter Details Date Type Department Care Team (Late st Contact Info) Description 12/06/2010 Abstract [facility] Spine Program - [address] [place], [place] [id number] Grady Nunez MD Social History Tobacco Use [...] Diagnoses Not on filedocumented in this encounter Historical Medications * This list may reflect changes made after this encounter. Medication Sig Dispensed Refills Start Date End Date naproxen (NAPROSYN) 250 mg tablet Take 500 mg by mouth 2 times daily with meals. 03/15/2014 added in this encounter Care Teams Color Printer Operator Relationship Specialty Start Date End Date Remigio Teixeira MD [address] [place] [address] PCP - General 10/19/10 documented as of this encounter
--- OUTSIDE RECORDS SUMMARY | 2024-01-10 00:41 | XMS_ITS | Referral Summary ---
Author Organization [facility] Address [address] [place] [address] Care Team Providers Care Distance Learning Technician Name Role Phone Remigio Teixeira MD Primary Care Provider [phone] Allergies No known active allergies Medications Medication Sig Dispensed Refills Start Date End Date Status acetaminophen (TYLENOL) 325 mg tablet Take 650 mg by mouth as needed for Pain. Active Multivitamins with Minerals tablet tablet Take 1 Tab by mouth daily. Active Active Problems Problem Noted Date Diagnosed Date Neck pain 03/15/2014 Social History Tobacco Use Types Packs/Day Years [...] on file Sexual Orientation Not on file Last Filed Vital Signs Vital Sign Reading Time Taken Comments Blood Pressure 121/77 03/31/2014 1118 EST Pulse 67 03/31/2014 1118 EST Temperature 35.9 ??C (96.7 ??F) 03/31/2014 1034 EST Respiratory Rate 16 03/31/2014 1118 EST Oxygen Saturation - - Inhaled Oxygen Concentration - - Weight 65.8 kg (145 lb) 07/23/2019 1049 EDT Height 177.8 cm (5' 10) 07/23/2019 1049 EDT Body Mass Index 20.81 07/23/2019 1049 EDT Functional Status Functional Status Response Date of [...] concentrating, remembering, or making decisions? No 07/23/2019 Plan of Treatment Not on file Care Teams Distance Learning Technician Relationship Specialty Start Date End Date Remigio Teixeira MD [address] [place] [address] PCP - General 10/19/10
--- OUTSIDE RECORDS SUMMARY | 2024-01-10 00:41 | XMS_ITS ---
Author Organization Unknown Address [address] [place] [phone] Phone Care Team Providers Care Director Patient Financial Services Name Role Phone SAMSON TURNERAH William Attending Unavaila ble SOHAIL CLYDE Primary Unavailable Social History Type Status Start Date End Date Code Code Syst em Smoking History Never smoker (Never Smoked) 479755996 SNOMED CT Sex Male Vital Signs Vital Sign Value Unit Magoffin Value Magoffin Unit Date/Time Recent/Initial? Code Code System Systolic Blood Pressure 111 mm[Hg] 03/18/2023 08:54 Initial 8480-6 LOINC Diastolic Blood Pressure 79 mm[Hg] 03/18/2023 08:54 Initial 8462-4 [facility] O2 Saturation 100 % 2022 08:54 Initial 08216- 5 INC Pulse 60.0 /min 03/18/2023 08:54 Initial 8867-4 LOINC Respiration 10 /min 03/18/20 23 08:54 Initial 9279-1 LOINC Temperature 36.2 Abi 97.2 F 03/18/20 23 08:54 Initial 8310-5 INC Hospital Discharge Instructions Should you have any questions prior to discharge, please contact a member of your healthcare team. If you have left the hospital and have any questions, please contact your primary care physician. Reason For Referral No Data Found Procedures Procedure Name Date Status Code Code Syste m Colsc Flx w/Rmvl Of Tumor Po lyp Lesion Snare Tq 03/18/2023 completed 41841 CPT Colonoscopy, Flexible, Proxi mal To Splenic Flexure; w/Bx, Single/Multiple 03/18/2023 completed 27511 C PT Plan of Treatment LAB DRAW 20MIN 03/30/2023 Encounters Encounter Diagnosis Start Date Code Code Sys tem Encounter for screening for malignant neoplasm of colo n 03/18/2023 SNOMED-CT Personal Care Team Section Performer Name Performer Role Active Date Inactive Da te
--- OUTSIDE RECORDS SUMMARY | 2024-01-10 00:41 | XMS_ITS | Encounter Summary ---
Author Organization [facility] Address [address] [place] [address] Care Team Providers Care Veterinary Pathologist Name Role Phone Remigio Teixeira MD Primary Care Provider [phone] Reason for Referral * Radiology Services (Routine) - Closed Specialty Diagnoses / Procedures Referred By Contac t Referred To Contact Diagnoses Cervicalgia Procedures CERVICAL SPINE 2-3 VIEWS Arlette Cavazos PA-C [address] [place] [phone] Referral ID Status Reason Start Date Expiration Date Visits Re quested Visits Authorized [id number] Closed 03/15/2014 1 1 Encounter Details Date Type Department Care Team (Late st Contact Info) Description 03/15/2014 Orders Only [facility] Spine Program - [address] [address] Arlette Cavazos PA-C [address] [place] [phone] Cervicalgia (Primary Dx) Social History Tobacco Use Types [...] on file documented as of this encounter Procedures Procedure Name Priority Date/Time Associated Diagnosis Comments CERVICAL SPINE 2-3 VIEWS Routine 03/15/2014 11:13 EST Cervicalgia documented in this encounter Results * CERVICAL SPINE 2-3 VIEWS (03/15/2014 11:13 EST) Anatomical Region Laterality Modality Other 03/15/2014 11:1 3 EST 03/15/2014 12:47 EST Narrative 03/15/2014 12:47 EST CERVICAL SPINE 2 VIEWS March 15, 2014 Indication: Neck pain. Comparison: Cervical spine films from [facility] on November 28, 2012. Technique: Lateral flexion and extension views of the cervical spine were obtained. Findings: Craniocervical and atlantoaxial alignment appear anatomic on [...] C3-C4 and C4-C5, there are uncovertebral spurs present at these levels as well. Multilevel facet hypertrophy is again demonstrated. Procedure Note 03/15/2014 CERVICAL SPINE 2 VIEWS March 15, 2014 Indication: Neck pain. Comparison: Cervical spine films from [facility] on November 28, 2012. Technique: Lateral flexion and extension views of the cervical spine were obtained. Findings: Craniocervical and atlantoaxial alignment appear anatomic on [...] C3-C4 and C4-C5, there are uncovertebral spurs present at these levels as well. Multilevel facet hypertrophy is again demonstrated. Arlette Cavazos PA-C [facility] ORDERABLES documented in this encounter Visit Diagnoses Diagnosis Cervicalgia- Primary documented in this encounter Care Teams Veterinary Pathologist Relationship Specialty Start Date End Date Remigio Teixeira MD [address] [address] PCP - General 10/19/10 documented as of this encounter
--- OUTSIDE RECORDS SUMMARY | 2024-01-10 00:41 | XMS_ITS | Encounter Summary ---
Author Organization [facility] Address [address] [place] [address] Care Team Providers Care Crew Lead Name Role Phone Remigio Teixeira MD Primary Care Provider [phone] Reason for Visit * (Routine) - Receiving Office to Obtain Authorization Specialty Diagnoses / Procedures Referred By Tristian sims Referred To Contact Procedures MR OUTSIDE IMAGES NEURO Unknown, Provider, Referral ID Status Reason Start Date Expiration Date Visits Requested Visits Authorized [id number] Receiving Office to Obtain Authorization 9 1 1 Encounter Details Date Type Department Care Team (Latest Contact Info) Description 04/30/2019 14:31 EST - 04/30/2019 23:59 EST Hospital Encounter [facility] Radiology - Main [place] [address] [place] [address] Discharge Disposition: Home or Self Care Social History Tobacco Use Types Packs/Day Years Used Date Smoking Tobacco: Never Smokeless Tobacco: Never Alcohol Use Standard Drinks/Week Comments Yes 0 (1 standard drink = 0.6 oz pur e alcohol) occ Sex and Gender Information Value Date Recorded Sex Assigned at Not on file Gender Identity Not on file Sexual Orientation Not on file documented as of this encounter Medications at Time of Discharge Medication Sig Dispensed Refills Start Date End Date acetaminophen (TYLENOL) 325 mg tablet Take 650 mg by mouth as needed for Pain. documented as of this encounter Discharge Disposition Disposition Code Departure Means Destination Home or Self Care documented in this encounter Plan of Treatment Not on file documented as of this encounter Procedures Procedure Name Priority Date/Time Associated Diagnosis Comments XR OUTSIDE IMAGES NEURO Routine 04/30/2019 14:32 EST MR OUTSIDE IMAGES NEURO Routine 04/30/2019 14:31 EST documented in this encounter Results * XR OUTSIDE IMAGES NEURO (04/30/2019 14:32 EST) Narrative [facility] - 04/30/2019 14:32 EST This is a non-reportable exam. Provider Unknown MD [facility] OTHER IMAGING OR DERABLES Performing Organization Address [facility] de Phone Number LILIYA * MR OUTSIDE IMAGES NEURO (04/30/2019 14:31 EST) Narrative [facility] - 04/30/2019 14:31 EST This is a non-reportable exam. Provider Unknown MD [facility] OTHER IMAGING OR DERABLES Performing Organization Address [facility] de Phone Number MCLILIYA documented in this encounter Visit Diagnoses Not on filedocumented in this encounter Care Teams Crew Lead Relationship Specialty Start Date End Date Remigio Teixeira MD [address] [facility] [address] [place] [address] PCP - General 10/19/10 documented as of this encounter
--- OUTSIDE RECORDS SUMMARY | 2024-01-10 00:41 | XMS_ITS | Encounter Summary ---
Author Organization [facility] Address [address] [place] [address] Care Team Providers Care Copy Editor Name Role Phone Remigio Teixeira MD Primary Care Provider Reason for Visit * Reason Onset Date Comments Back Pain 11/02/2019 Encounter Details Date Type Department Care Team (Late st Contact Info) Description 11/02/2019 Telephone [facility] Spine Program - [address] [place] [address] Arlette Cavazos PA-C [address] [place], [place] [phone] [facility] [place] [address] Back Pain Social History Tobacco Use Types Packs/Day Years [...] as of this encounter Visit Diagnoses Diagnosis Low back pain, unspecified back pain laterality, unspecified chronicity, unspecified whether sciatica present- Primary documented in this encounter Care Teams Copy Editor Relationship Specialty Start Date End Date Remigio Teixeira MD [address] [address] PCP - General 10/19/10 documented as of this encounter
--- OUTSIDE RECORDS SUMMARY | 2024-01-10 00:41 | XMS_ITS | Clinical Summary ---
Author Organization [facility] Address [facility] [place] [address] Care Team Providers Care Nurse Reviewer Name Role Phone Unknown Primary Care Provider Unavailabl e Allergies No known active allergies Medications No known medications Social History Tobacco Use Types Packs/Day Years Used Date Smoking Tobacco: Never Sex and Gender Information Value Date Recorded Sex Assigned at Not on file Gender Identity Not on file Sexual Orientation Not on file Last Filed Vital Signs Vital Sign Reading Time Taken Comments Blood Pressure 102/61 12/27/2014 1:58 PM EDT Pulse 74 12/27/2014 1:58 PM EDT Temperature 36.3 ??C (97.3 ??F) 12/27/2014 1:58 PM ED T Respiratory Rate 18 12/27/2014 1:58 PM EDT Oxygen Saturation - - Inhaled Oxygen Concentration - - Weight - - Height - - Body Mass Index - - Plan of Treatment Health Maintenance Due Date Last Done Comments CT Colonography 1965 Colonoscopy 1965 Colorectal Cancer Screening 1965 FIT DNA 1965 FIT 1965 Sigmoidoscopy (10 year) with FIT yearly 1965 Sigmoidoscopy 1965 HIV screen 1983 Hepatitis C Screening 1983 Lipid Screening 1983 Hepatitis B vaccine (0-59 yrs) (1) 1984 Tdap adult 1984 Tetanus vaccine 1984 Zoster vaccine (1 of 2) 2015 Advance Directive 2020 Covid-19 Vaccine (1 - 2022-24 season) 2023 Influenza (Flu) vaccine (1 o f 1 - Influenza standard series) 01/12/2024 Care Teams Nurse Reviewer Relationship Specialty Start Date End Date Unknown None PCP - General 03/12/23
--- OUTSIDE RECORDS SUMMARY | 2024-01-10 00:41 | XMS_ITS | Encounter Summary ---
Author Organization [facility] Address [facility] [place] [address] Care Team Providers Care Scraper Operator Name Role Phone Remigio Teixeira MD Primary Care Provider [phone] Reason for Visit * Reason Comments Establish Care Encounter Details Date Type Department Care Team (Latest Contact Info) Description 12/27/2014 1:30 PM EDT Office [place] [address] Lauro Santos MD [facility] [place] [address] Lyme disease; Tinnitus, left; Fatigue; Primary osteoarthritis involving multiple joints Discharge Disposition: Home Social History Tobacco Use Types Packs/Day Years [...] - - Body Mass Index - - documented in this encounter Progress Notes * Lauro Santos MD - 12/27/2014 5:14 PM EDT Infectious Diseases Attending Chief Complaint: Question of proportion of chronic symptoms that are attributable to Lyme disease and appropriateness of already-received therapy. History of the Present Illness: Mr. Evans is a 49-year-old corea who reports the onset of earlier than expected diffuse arthralgias and fatigue. He denies any fevers, target rashes, swollen hot joints, or other classic manifestations of Lyme disease accompanying these symptoms. He also developed around three months ago sudden onset of left-sided tinnitus associated with what was ultimately found to be high-frequency hearing loss and some mild gait disequilibrium. He was seen by ear, nose, and throat doc for this and told that it could be quotidian age-related hearing changes; but since Lyme disease was being considered, the ear, nose, and throat doc suggested he consult with us before making a final determination. Because of the earlier symptoms of fatigue and arthralgias without arthritis, the patient had asked of his primary care doctor, Dr. Soto, for Lyme testing. Dr. Soto recognized the indications for this were soft but did the testing, which ended up being positive with IgG bands 58, 41, 39, 30, 23, and 18 being positive as well as IgM bands 41, 39, and 23. Patient was given amoxicillin twice a day for a month; and then he states that he was told that the dose should have been t.i.d., which he was then given for 21 days starting on October 19. The patient says that he tolerated both courses of amoxicillin well and now feels that he is slightly less fatigued and has no difference in his polyarthralgias. His tinnitus and hearing loss are no different. His says that he is a little less likely to need to nap lately. Patient wonders what proportion of his symptoms are attributable to Lyme disease, whether the treatment was standard, and if any additional workup is needed. He says that mostly he just needs to be able to make sense of all of these findings particularly since reading about Lyme disease on the Internet has been a little confusing, he says, because of the variable quality of information he found. The patient reports a couple of months ago noticing a bruise on his right regalado, which appeared without apparent provocation and was nontender and nonpruritic. He said that the lesion was mottled and did not have a target appearance such as he saw on the Internet. Review of systems is otherwise negative. Past Medical History: 1. 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 2. Julian cyst behind the right knee. 3. Childhood asthma. Past Surgical History: Carpal tunnel surgery. Allergies: No known drug allergies. Medications: None. Patient previously took around seven weeks of amoxicillin as described above. Family History: The patient's mother had osteoarthritis and degenerative joint disease. He does not know his biological father's medical history. His maternal grandmother had type 2 diabetes. Social History: The patient is a corea who lives in [place], [place]. He does not smoke. He says that he has alcohol about once every two months. He has never traveled internationally. He has lived in [facility] prior to moving to [place] about 18 years ago. At the age of 19, he lived in [place]. He has exposure to a number of farm animals but has not specifically noted a tick exposure. Physical Examination: General: The patient is a very healthy and pleasant, tanned man in no acute distress who is accompanied by his . Vitals: Blood pressure 102/61, pulse 74 and regular, respiratory rate 18, temperature of 36.3 degrees centigrade. HEENT: No scleral icterus or conjunctival petechia. No oropharyngeal erythema, exudate, or thrush. Lymph Nodes: There is no lymphadenopathy in the cervical, occipital, supraclavicular, or axillary distribution. Lungs are clear to auscultation and percussion bilaterally. Skin: There was no rash. 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 On the posterior right upper back, there was a 6 mm in diameter, irregularly bordered, variegate-colored, asymmetrical nevus, which I pointed out to the patient and his and suggested needed consideration of dermatological biopsy. Otherwise, there was no rash. Cardiovascular: The patient's extremities were warm and well perfused. There was no edema. There was a regular rate and rhythm without murmurs, rubs, or gallops. Abdomen was soft, nontender, nondistended with normally active bowel sounds. There was no hepatosplenomegaly appreciated. Joints: There was thickening of the knuckles of the bilateral hands and I thought within the calluses of the DIPs there might have been Heberden nodes on the left although it was a little bit difficult to tell. There was no apparent synovitis or ulnar deviation of the fingers, though. There was no swelling or warmth of either knee. Neurological: The cranial nerves II through XII were grossly intact. Strength was 5/5 in the bilateral upper and lower extremities. Word articulation and gait were normal. Sensation was intact to light touch throughout. Labs: On the August, a CBC was normal. TSH was normal. LFTs and chemistries were, as well. Erythrocyte sedimentation rate was 7. The Lyme antibodies described above are from that time. Impression: The majority of this fairly healthy but hard-working 49-year-old corea's symptoms are likely attributable to causes other than Lyme disease. Specifically he is in his late 40s and hard manual labor such that in him it is unsurprising to see some signs of diffuse osteoarthritis. In addition, some fatigue is unsurprising given his hard work. However, he does report a skin lesion on his right leg, which is potentially consistent with unrecognized erythema chronicum migrans; and his Lyme serology is positive. That makes treatment of Lyme disease reasonable. Importantly, I agree with the opinion voiced earlier that that checking a Lyme serology for fatigue or diffuse arthralgias alone is not appropriate and can lead to over interpretation of a serology, in places where Lyme disease is endemic. Specifically, around 5% of the population can have a positive serology in a fashion that has nothing to do with any current symptomatology; but in this patient, I think it was reasonable to treat given the dermatological finding he now mentions. It is nice to hear that his symptoms are a little bit improved. The standard drug to treat Lyme disease with is doxycycline, so this raises the question of whether the therapy he was given was adequate or whether he ought to be given doxycycline in addition. Since amoxicillin is an alternate therapy for Lyme disease and he was given far longer than the typical two- to three-week course, I think he has been adequately treated and the likely benefit of additional doxycycline is probably not worth toxicity it could bring, particularly given this patient's sun exposure. The patient's tinnitus, hearing loss, and slight vertigo sound more like either Meniere's disease or just age-related vestibular changes and in the absence of symptoms suggestive of central nervous system Lyme disease and the non-concurrent nature of all symptom onset is not sufficiently suggestive of a rare vestibular neuritis from Lyme disease or additional work up to discover it. Specifically the discomfort he is likely to experience from lumbar puncture is unlikely to be justified by any changed Treatment approach given the uncertain added need for intravenous rx at this point. Like mononucleosis and other infections that cause smoldering inflammation, Lyme disease can cause a post-Lyme syndrome characterized by fatigue and diffuse joint aches that resolve over several weeks to months. This is not thought to be caused by ongoing borreliosis. As a result, I suggested to the patient that he may show some signs of improvement over the weeks and months to come. Recommendations/Plan: 1. Extensive education and shared decision-making. 2. I told the patient I think that amoxicillin as already given is adequate. 3. I told the patient that it would not be unreasonable to provide an additional two weeks of doxycycline and that this was a judgment call, but for me or a family member I would probably call what he has already been given sufficient. 4. No further testing is required. 5. We discussed the likely future improving course albeit not back to his baseline due to the expectation that some proportion of symptoms are not ascribable to Lyme disease. 6. No treatment needed for coinfection given the absence of suggestive lab Abnormalities. 7. Urged the patient have his atypical nevus evaluated and biopsied by dermatology or PCP. Time statement minutes Total visit time 60 Counseling and discussion about the issues addressed in the impression section above, as well as about [x] likely explanations for symptoms [x] how reassuring or concerning findings on exam are [x] the meaning of available lab or other findings [x] justification for additional diagnostic work up [x] treatment decision-making [x] expected side effects and risks of therapy or withholding it [x] prognosis [] other: 45 For prolonged services, actual times of [id number] time with patient documented in this encounter Plan of Treatment Not on file documented as of this encounter Visit Diagnoses Diagnosis Lyme disease Tinnitus, left Unspecified tinnitus Fatigue Other malaise and fatigue Primary osteoarthritis involving multiple joints documented in this encounter Care Teams Scraper Operator Relationship Specialty Start Date End Date Remigio Teixeira MD PCP - General 10/15/14 03/11/23 documented as of this encounter
--- OUTSIDE RECORDS SUMMARY | 2024-01-10 00:41 | XMS_ITS | Encounter Summary ---
Author Organization [facility] Address [address] [place] [address] Care Team Providers Care Clinical Trials Specialist Name Role Phone Remigio Teixeira MD Primary Care Provider Reason for Visit * Reason Onset Date Comments Results 04/01/2014 Encounter Details Date Type Department Care Team (Late st Contact Info) Description 04/01/2014 Telephone [facility] [place] [facility] Interventional Pain [address] [place], [place] [id number] Leyla Mccoy MD [address] [place] [address] Results Social History Tobacco Use Types Packs/Day Years Used Date Smoking Tobacco: Never Smokeless Tobacco: Never Alcohol Use Standard Drinks/Week Comments Yes 0 (1 standard drink = 0.6 oz pur e alcohol) occ Sex and Gender Information Value Date Recorded Sex Assigned at Not on file Gender Identity Not on file Sexual Orientation Not on file documented as of this encounter Miscellaneous Notes * Telephone Encounter - Usha Colon RN - 04/01/2014 1236 EST Date and type of procedure:03/31/14 bilateral cervical Facet Steroid Injection Provider: Nadine/Lokesh Hours of relief: 4 hours % of relief:25% Next appointment: no note available, prn * Telephone Encounter - Gabi Prajapati - 04/01/2014 1141 EST 4 HOURS AT 25% documented in this encounter Plan of Treatment Not on file documented as of this encounter Visit Diagnoses Not on filedocumented in this encounter Care Teams Clinical Trials Specialist Relationship Specialty Start Date End Date Remigio Teixeira MD [address] [place] [id number] PCP - General 10/19/10 documented as of this encounter
--- OUTSIDE RECORDS SUMMARY | 2024-01-10 00:41 | XMS_ITS | Clinical Summary ---
Author Organization [facility] Address [address] [place] [address] Care Team Providers Care Beam Doffer Name Role Phone Remigio Teixeira MD Primary Care Provider [phone] Allergies No known active allergies Medications Medication Sig Dispensed Refills Start Date End Date Status acetaminophen (TYLENOL) 325 mg tablet Take 650 mg by mouth as needed for Pain. Active Multivitamins with Minerals tablet tablet Take 1 Tab by mouth daily. Active Active Problems Problem Noted Date Diagnosed Date Neck pain 03/15/2014 Surgical History Surgery Date Site/Laterality Comments CARPAL TUNNEL RELEASE FRACTURE SURGERY Family History Relation Status Comments Father Mother Alive Social History Tobacco Use Types Packs/Day Years [...] on file Sexual Orientation Not on file Obstetrics History Last Filed Vital Signs Vital Sign Reading [...] Body Mass Index 20.81 07/23/2019 1049 EDT Plan of Treatment Health Maintenance Due Date Last Done Comments Hepatitis C Screen 1965 Hepatitis B Vaccine (1 of 3 - 19+ 3-dose series) 05/24 COVID-19 Vaccine (2022-24 season) 2023 Care Teams Beam Doffer Relationship Specialty Start Date End Date Remigio Teixeira MD [address] [facility] [address] [place] [address] PCP - General 10/19/10
--- OUTSIDE RECORDS SUMMARY | 2024-01-10 00:41 | XMS_ITS | Encounter Summary ---
Author Organization [facility] Address [address] [place] [address] Care Team Providers Care Menagerie Superintendent Name Role Phone Remigio Teixeira MD Primary Care Provider [phone] Reason for Visit * Reason Onset Date Comments Appointment Related 03/03/2020 Encounter Details Date Type Department Care Team (Late st Contact Info) Description 03/03/2020 Telephone [facility] Interventional Pain [address] [place] [address] Unknown, Doctor MD Appointment Related Social History Tobacco Use Types Packs/Day Years [...] No 07/23/2019 documented as of this encounter Miscellaneous Notes * Telephone Encounter - Marcia Zapata - 03/03/2020 8806 EDT LM for pt to call back and schedule referral. Recall in. documented in this encounter Plan of Treatment Not on file documented as of this encounter Visit Diagnoses Not on filedocumented in this encounter Care Teams Menagerie Superintendent Relationship Specialty Start Date End Date Remigio Teixeira MD [address] [place] [id number] PCP - General 10/19/10 documented as of this encounter
--- OUTSIDE RECORDS SUMMARY | 2024-01-10 00:41 | XMS_ITS | Encounter Summary ---
Author Organization [facility] Address [address] [place] [address] Care Team Providers Care Inductor Tester Name Role Phone Remigio Teixeira MD Primary Care Provider [phone] Encounter Details Date Type Department Care Team (Latest Contact Info) Description 07/23/2019 Travel Social History Tobacco Use Types Packs/Day Years [...] on filedocumented in this encounter Care Teams Inductor Tester Relationship Specialty Start Date End Date Remigio Teixeira MD [address] [facility] [address] [place] [address] PCP - General 10/19/10 documented as of this encounter
--- OUTSIDE RECORDS SUMMARY | 2024-01-10 00:41 | XMS_ITS | Encounter Summary ---
Author Organization [facility] Address [address] [place] [address] Care Team Providers Care Pigment Processor Name Role Phone Remigio Teixeira MD Primary Care Provider [phone] Reason for Visit * Reason Onset Date Comments Referral Request 11/02/2019 Encounter Details Date Type Department Care Team (Late st Contact Info) Description 11/02/2019 Telephone [facility] Spine Program - [address] [place] [address] Arlette Cvaazos PA-C [address] [place] [address] [place] [address] Referral Request Social History Tobacco Use Types Packs/Day Years [...] encounter Miscellaneous Notes * Telephone Encounter - Antoine Cao Jr., GRISELDA - 11/02/2019 1657 EDT Patient called to request his injections be changed from Pain Medicine to [facility]. Order pended. documented in this encounter Plan of Treatment Not on file documented as of this encounter Visit Diagnoses Not on filedocumented in this encounter Care Teams Pigment Processor Relationship Specialty Start Date End Date Remigio Teixeira MD [address] [place] [id number] PCP - General 10/19/10 documented as of this encounter
--- OUTSIDE RECORDS SUMMARY | 2024-01-10 00:41 | XMS_ITS | Encounter Summary ---
Author Organization [facility] Address [facility] [place] [address] Care Team Providers Care Passenger Representative Name Role Phone Remigio Teixeira MD Primary Care Provider [phone] Encounter Details Date Type Department Care Team (Late st Contact Info) Description 03/22/2015 Notes Only Infectious Disease at [facility] [place] [id number] Sherry Edgar, RN Social History Tobacco Use Types Packs/Day Years Used Date Smoking Tobacco: Never Sex and Gender Information Value Date Recorded Sex Assigned at Not on file Gender Identity Not on file Sexual Orientation Not on file documented as of this encounter Progress Notes * Sherry Edgar RN - 03/22/2015 12:44 PM EST Call from [facility] . He completed his course of abx, was feeling better and now symptoms of fatigue, muscle aches and decreased mental clarity. He is concerned that he might need f/u for lyme despite completed treatment. Per Dr. Santos symptoms are not suggestive of lyme given adequate treatment and patient should f/u with PCP. I advised patient of same. documented in this encounter Plan of Treatment Not on file documented as of this encounter Visit Diagnoses Not on filedocumented in this encounter Care Teams Passenger Representative Relationship Specialty Start Date End Date Remigio Teixeira MD PCP - General 10/15/14 03/11/23 documented as of this encounter
--- OUTSIDE RECORDS SUMMARY | 2024-01-10 00:41 | XMS_ITS | Encounter Summary ---
Author Organization [facility] Address [address] [place] [address] Care Team Providers Care Front Office Supervisor Name Role Phone Remigio Teixeira MD Primary Care Provider [phone] Encounter Details Date Type Department Care Team (Latest Contact Info) Description 07/23/2019 11:15 EDT - 07/24/2019 23:59 EDT Hospital Encounter [address] [facility] [address] [place], [place] [id number] Chronic low back pain, unspecified back pain laterality, unspecified whether sciatica present Discharge Disposition: Home or Self Care Social [...] No 07/23/2019 documented as of this encounter Medications at Time of Discharge Medication Sig Dispensed Refills Start Date End Date acetaminophen (TYLENOL) 325 mg tablet Take 650 mg by mouth as needed for Pain. Multivitamins with Minerals tablet tablet Take 1 Tab by mouth daily. documented as of this encounter Discharge Disposition Disposition Code Departure Means Destination Home or Self Care documented in this encounter Plan of Treatment Not on file documented as of this encounter Procedures Procedure Name Priority Date/Time Associated Diagnosis Comments XR LUMBAR SPINE 2-3 VIEWS Routine 07/23/2019 11:44 EDT Chronic low back pain, unspecified back pain laterality, unspecified whether sciatica present documented in this encounter Results * XR LUMBAR SPINE 2-3 VIEWS (07/23/2019 11:44 EDT) Anatomical Region Laterality Modality Spine Computed Radiogr aphy 07/23/2019 12:3 1 EDT Narrative 07/23/2019 12:31 EDT XR LUMBAR SPINE 2-3 VIEWS 07/23/2019 11:35 AM Signs and Symptoms: Back pain Comparison: Lumbar spine MRI March 10, 2019 from [facility] and lumbar spine films February 23, 2019 from [facility] Technique: Lateral flexion and extension views of the lumbar spine were obtained. Findings: Minimal grade 1 anterolisthesis of L4 on L5 is seen only on the flexion view. There is minimal retrolisthesis of L5 on S1 seen only on the extension view. Vertebral body heights are preserved. Mild disc space narrowing is noted at L5-S1. Hypertrophy of the facet joints is noted at L4-5 and L5-S1. Procedure Note Jen Bills MD - 07/23/2019 XR LUMBAR SPINE 2-3 VIEWS 07/23/2019 11:35 AM Signs and Symptoms: Back pain Comparison: Lumbar spine MRI March 10, 2019 from [facility] and lumbar spinefilms February 23, 2019 from [facility] Technique: Lateral flexion and extension views of the lumbar spine were obtained. Findings: Minimal grade 1 anterolisthesis of L4 on L5 is seen only on the flexionview. There is minimal retrolisthesis of L5 on S1 seen only on theextension view. Vertebral body heights are preserved. Mild disc space narrowing is noted at L5-S1. Hypertrophy of the facet joints is noted at L4-5 and L5-S1. Arlette Cavazos PA-C [facility] [employer]LES documented in this encounter Visit Diagnoses Diagnosis Chronic low back pain, unspecified back pain laterality, unspecified whether sciatica present documented in this encounter Care Teams Front Office Supervisor Relationship Specialty Start Date End Date Remigio Teixeira MD [address] [address] PCP - General 10/19/10 documented as of this encounter
--- OUTSIDE RECORDS SUMMARY | 2024-01-10 00:41 | XMS_ITS | Encounter Summary ---
Author Organization [facility] Address [address] [place] [address] Care Team Providers Care Pipelayer Name Role Phone Remigio Teixeira MD Primary Care Provider [phone] Reason for Referral * Consult (Routine) - Specialty Report Received Specialty Diagnoses / Procedures Referred By Tristian sims Referred To Contact Pain Medicine Diagnoses Neck pain Arlette Cavazos PA-C [address] [place] [phone] [facility] [address] [place] [address] Referral ID Status Reason Start Date Expiration Date Visits Requested Visits Authorized [id number] Specialty Report Received Specialty Services Required 03/15/2014 1 1 Question Answer Reason for Request: Neck pain Comments Recommend C5-C6/C6-C7 B/L facet injections Reason for Visit * Reason Comments Neck Pain Encounter Details Date Type Department Care Team (Late st Contact Info) Description 03/15/2014 10:45 EST Office Visit [facility] Spine Program - [facility] [facility] [place] [address] Arlette Cavazos PA-C [address] [place] [address] Neck pain (Primary Dx) Discharge Disposition: Auto Discharge Social History Tobacco [...] Sign Reading Time Taken Comments Blood Pressure - - Pulse - - Temperature - - Respiratory Rate - - Oxygen Saturation - - Inhaled Oxygen Concentration - - Weight 63.5 kg (140 lb) 03/15/2014 1120 EST Height 179.1 cm (5' 10.5) 03/15/2014 1120 EST Body Mass Index 19.8 03/15/2014 1120 EST documented in this encounter Discharge Diagnoses Diagnosis 723.1 CERVICALGIA[ICD-9-CM] documented in this encounter Discharge Disposition Disposition Code Departure Means Destination Auto Discharge documented in this encounter Progress Notes * Azul Chavez - 03/15/2014 1150 EST Patient given written injection PT ED, as well as verbal instructions. * Arlette Cavazos PA - 03/15/2014 1132 EST Jamal Evans is being seen as a consultation from Dr. Teixeira. Chief Complaint Patient presents with ??? Neck Pain The encounter diagnosis was Neck pain. HPI Mr. Evans is a 48 y.o. pleasant male who presents to the clinic today with 100% neck pain radiatingto the medial aspects of his shoulder blades. The patient reports 4-year h/o intermittent neck painthat has worsened over the last year. His pain is present every day and fluctuates between 2/10 at its best and 6/10 at its worst. He has tried PT, which did not help. He has not tired CHIRO or injections. Nothing seems to alleviate his symptoms. Extending his neck and rotating his head right and left aggravate his symptoms. He rates his pain as 4/10. HPI Patient Active Problem List Diagnosis ??? Neck pain History reviewed. No pertinent past medical history. History reviewed. No pertinent past surgical history. History Substance Use Topics ??? Smoking status: Never Smoker ??? Smokeless tobacco: Never Used ??? Alcohol Use: Yes Comment: occ History reviewed. No pertinent family history. No current outpatient prescriptions on file. No current facility-administered medications for this visit. No Known Allergies Review of Systems Constitutional: Positive for activity change. Negative for unexpected weight change. Eyes: Negative for visual disturbance. Respiratory: Negative for chest tightness. Cardiovascular: Negative for chest pain. Gastrointestinal: Negative for constipation. Genitourinary: Negative for difficulty urinating. Musculoskeletal: Positive for back pain and neck pain. Skin: Negative for rash. Neurological: Negative for numbness. Psychiatric/Behavioral: Negative for behavioral problems and agitation. Physical Exam Constitutional: He is oriented to person, place, and time. He appears well- developed and well-nourished. HENT: Head: Normocephalic and atraumatic. Eyes: EOM are normal. Neck: Neck supple. Cardiovascular: Normal rate. Pulmonary/Chest: Effort normal. Neurological: He is alert and oriented to person, place, and time. Skin: Skin is warm and dry. No rash noted. Psychiatric: He has a normal mood and affect. His behavior is normal. Back Exam Comments: RASHES AND CHI: NEG. FROM: TENDERNESS ON PALPATION: NEG. STRENGTH: 5/5. REFLEXES: 2/4. SENSATION: Intact. SPURLING'S: NEG. PRESLEY: NEG. RADIAL PULSE: 2/2. TINNEL: NEG. PHALEN: NEG. ULNARCOMPRESSION: NEG. Neurologic Exam Mental Status Oriented to person, place, and time. Cranial Nerves CN III, IV, Extraocular motions are normal. Today, 03/15/2014, I ordered plain radiographs and I independently reviewed the following: Plain radiographs (AP/Lat/Flex/Ex): 1. Loss of cervical lordosis 2. Mild anterior subluxation of C3 on C4 and C4 on C5 noted on Flex returning to anatomical position on Ex 3. Facet arthropathy of the cervical spine 4. Disc height reduction at C5-C6, C6-C7 consistent with degenerative disc disease 5. No fractures identified Assessment 48 y.o. male with neck pain most likely from degenerative disc and facet disease. He has agreed to the following plan. Other Orders Placed This Visit Procedures ??? Amb Consult/Follow Up Pain Interventional Plan: 1. Order C5-C6/C6-C7 B/L facet injections 2. Return to clinic post facet injections 3. If no relief from facet injections, consider MRI CC: Dr. Puneet Jackson was the attending physician available in the clinic today if needed. A consultation was not required. documented in this encounter Plan of Treatment Scheduled Referrals Name Type Priority Associated Diagnoses Order Schedule AMB CONS/FOLLOW UP PAIN INTERVENTIONAL Outpatient Referral Routine Neck pain Ordered: 03/15/2014 documented as of this encounter Visit Diagnoses Diagnosis Neck pain- Primary Cervicalgia documented in this encounter Discontinued Medications Medication Sig Discontinue Reason Start Date End Da te Glucosamine Sulfate (GLUCOSAMINE) 500 mg Tab Take by mouth. Patient Stopped Taking 4 naproxen (NAPROSYN) 250 mg tablet Take 500 mg by mouth 2 times daily with meals. Patient Stopped Taking 03/15/2014 documented as of this encounter Care Teams Pipelayer Relationship Specialty Start Date End Date Remigio Teixeira MD [address] [place] [id number] PCP - General 10/19/10 documented as of this encounter
--- OUTSIDE RECORDS SUMMARY | 2024-01-10 00:41 | XMS_ITS | Encounter Summary ---
Author Organization [facility] Address [address] [place] [address] Care Team Providers Care Chronic Disease Epidemiologist Name Role Phone Remigio Teixeira MD Primary Care Provider [phone] Reason for Visit * Reason Onset Date Comments Back Pain 07/22/2019 Encounter Details Date Type Department Care Team (Late st Contact Info) Description 07/22/2019 Orders Only [facility] Spine Program - [address] [place] [address] Arlette Cavazos PA-C [address] [place] [address] [place] [address] Chronic low back pain, unspecified back pain laterality, unspecified whether sciatica present (Primary Dx) Social History Tobacco Use Types [...] on file documented as of this encounter Results * XR LUMBAR SPINE 2-3 VIEWS (07/23/2019 11:44 EDT) Anatomical Region Laterality Modality Spine Computed Radiogr aphy 07/23/2019 12:3 1 EDT Narrative 07/23/2019 12:31 EDT XR LUMBAR SPINE 2-3 VIEWS 07/23/2019 11:35 AM Signs and Symptoms: Back pain Comparison: Lumbar spine MRI March 10, 2019 from [facility] and lumbar spine films February 23, 2019 from [facility] Technique: Lateral flexion and extension views [...] Lumbar spine MRI March 10, 2019 from [facility] and lumbar spinefilms February 23, 2019 from [facility] Technique: Lateral flexion and extension views [...] unspecified back pain laterality, unspecified whether sciatica present- Primary Chronic low back pain, unspecified back pain laterality, unspecified whether sciatica present documented in this encounter Care Teams Chronic Disease Epidemiologist Relationship Specialty Start Date End Date Remigio Teixeira MD [address] [place] [phone] PCP - General 10/19/10 documented as of this encounter
--- OUTSIDE RECORDS SUMMARY | 2024-01-10 00:41 | XMS_ITS | Encounter Summary ---
Author Organization [facility] Address [address] [place] [address] Care Team Providers Care Agriculture Manager Name Role Phone Remigio Teixeira MD Primary Care Provider [phone] Reason for Visit * Reason Comments Pain * Consult (Routine) - Closed Specialty Diagnoses / Procedures Referred By Contapolonia t Referred To Contact Orthopedic Surgery Diagnoses Back pain Neck pain Britta Moon, RUBBER CUTTING MACHINE TENDER [address] [place] [address] [facility]ine [address] [place] [address] Referral ID Status Reason Start Date Expiration Date Visits Re quested Visits Authorized [id number] Closed 1 1 Encounter Details Date Type Department Care Team (Late st Contact Info) Description 07/23/2019 11:00 EDT Office Visit [facility] Spine Program - [address] [address] Arlette Cavazos PA-C [address] [facility] [place] [address] Chronic bilateral low back pain without sciatica (Primary Dx) Social History Tobacco Use Types [...] Body Mass Index 20.81 07/23/2019 1049 EDT documented in this encounter Functional Status Functional Status Response [...] No 07/23/2019 documented as of this encounter Progress Notes * Arlette Cavazos PA-C - 07/23/2019 1100 EDT Mr. Evans is a 54 y.o. pleasant male who presents to the clinic today, 07/23/2019, with 1. 100 % LBP. 2. Occasionally pain affects the proximal half of the lateral aspect of his right thigh. ONSET: This is a chronic issue that has been present since 2015. Has worsened over the last year. Symptoms wax and wane, but they are present everyday. CONSERVATIVE TX: 1. Physical Therapy: YES; has helped somewhat. 2. CHIRO: NO. 3. Steroid injections: NONE. ALLEVIATING FACTORS: Massages, activity. AGGRAVATING FACTORS: standing, walking, flexing his back. PAIN: 8/10. SOCIAL: 1. SMOKING: Never. 2. WORK: currently working as a [employer]. 3. Patient lives with his and son. Review of Systems Constitutional: Positive for activity change. Negative for unexpected weight change. Eyes: Negative for visual disturbance. Respiratory: Negative for chest tightness. Gastrointestinal: Negative for constipation. Genitourinary: Negative for difficulty urinating. Musculoskeletal: Positive for low back pain. Negative for neck pain. Skin: Negative for rash. Neurological: negative for numbness. Psychiatric/Behavioral: Negative for agitation and behavioral problems. Physical Exam Constitutional: Patient is oriented to person, place, and time, and appears well-developed and well-nourished. Eyes: EOM are normal. Pupils are equal, round, and reactive to light. Cardiovascular: Normal rate. Pulmonary/Chest: Effort normal and breath sounds normal. Neurological: Patient is alert and oriented to person, place, and time. Skin: Skin is warm and dry. No rash noted. Psychiatric: Patient has a normal mood and affect, and behavior is normal. Family and Social History: Reviewed. Back Exam GAIT: Normal. HEEL & TOE WALKING: NEG. LESIONS, RASHES OR HAIR CHI: NEG. FROM, but pain is elicited with bending of the lumbar spine. TENDERNESS ON PALPATION: NEG. STRENGTH: 5/5 REFLEXES: Patellar 2/4 B/L; Achilles 2/4 B/L. BABINSKI: Down. CLONUS: NEG. DP: 2/2. SENSATION: Intact. SLR RIGHT: NEG. LEFT: NEG. HIP ROM: Full. DEEP'S: NEG. Today, 07/23/2019, I ordered plain radiographs and I independently reviewed the following radiographs: Lumbar Plain radiographs (AP/Lat/Flex/Ex): 1. Five (5) non-rib bearing lumbar vertebrae 2. Facet arthropathy of the lower lumbar spine 3. Disc height reduction at L4-L5/L5-S1 conistent with degenerative disc disease 4. No fractures or pars defects noted Lumbar MRI from prior work up in February 2019: Multilevel degenerative disc and facet changes without any significant central spinal canal stenosis or neuroforaminal narrowing. Assessment: 54 y.o. male with 1. LBP most likely from degenerative disc and facet disease although muscular pain secondary to scoliosis is also plausible. He has agreed to the following plan. Plan: 1. Order L4-L5/L5-S1 B/L facet injections. 2. Continue with in-home exercise program. 3. Continue activity as tolerated. 4. Return to clinic post facet injections. 5. If no relief from lumbar facet injections, consider L5-S1 BRANDI. CC: Dr. Puneet Thomas was the attending physician available in the clinic today if needed. A consultation was not required. documented in this encounter Plan of Treatment Not on file documented as of this encounter Visit Diagnoses Diagnosis Chronic bilateral low back pain without sciatica- Primary documented in this encounter Historical Medications * This list may reflect changes made after this encounter. Medication Sig Dispensed Refills Start Date End Date Multivitamins with Minerals tablet tablet Take 1 Tab by mouth daily. added in this encounter Care Teams Agriculture Manager Relationship Specialty Start Date End Date Remigio Teixeira MD [address] [place] [id number] PCP - General 10/19/10 documented as of this encounter
--- OUTSIDE RECORDS SUMMARY | 2024-01-10 00:42 | XMS_ITS ---
Author Organization Unknown Address [address] [place] [phone] Phone Care Team Providers Care Alfalfa Dehydrator Operator Name Role Phone SOHAIL CLYDE Attending Unavailable Results LIPID PANEL* - Collect Date/ Time: 03/30/2023 08:27 [facility] ID: [id number] [address] [place] [address], [phone] LOINC: Test Value Unit Reference Range Code Code System Flag FASTING STATUS: FASTING CHOLESTEROL 193 mg/dL L=0 H=200 2093-3 LOINC TRIGLYCERIDES 32 mg/dL L=63 H=313 2571-8 LOINC L HDL 92 mg/dL L=28 H=63 2085-9 LOINC H non-HDL-C 101 mg/dL L=0 H=160 55945-9 LOINC LDL (CALC) 95 mg/dL L=0 H=130 38936-7 LOINC % HDL 47.7 % Chol/HDL Ratio 2.1 L=0.0 H=4.9 9830-1 LOINC CHD Relative Risk 0.4 x Avg L=0.0 H=1.0 LDL/HDL Ratio 1.0 L=0.0 H=3.5 28844-4 LOINC CHD Relative Risk. 0.3 x Avg L=0.0 H=1.0 TSH THYROID STIMULATING HORM ONE* - Collect Date/Time: 03/30/2023 08:27 [facility] ID: [id number] [address] [place] [address], [address] LOINC: 3014-8 Test Value Unit Reference Range Code Code System Flag TSH 1.242 uIU/mL L=0.360 H=3.740 3014-8 LOINC COMPREHENSIVE METABOLIC PANE L (CMP) - Collect Date/Time: 03/30/2023 08:27 [facility] ID: [id number] [address] [place], [place], [address] LOINC: 39407-6 Test Value Unit Reference Range Code Code System Flag GLUCOSE 93 mg/dL L=70 H=116 2345-7 LOINC BUN 15 mg/dL L=6 H=25 3094-0 LOINC CREATININE 1.04 mg/dL L=0.67 H=1.17 2160-0 LOINC SODIUM SERUM 137 mmol/L L=136 H=145 2951-2 LOINC POTASSIUM SERUM 4.6 mmol/L L=3.4 H=5.2 2823-3 LOINC CHLORIDE SERUM 102 mmol/L L=96 H=110 2075-0 LOINC CARBON DIOXIDE (CO2) 30 mmol/L L=22 H=34 2028-9 LOINC ANION GAP 4.8 mmol/L 88512-1 LOINC CALCIUM SERUM 9.0 mg/dL L=8.2 H=10.2 39788-6 LOINC BILIRUBIN TOTAL 0.7 mg/dL L=0.0 H=1.3 1975-2 LOINC ALK. PHOS. 67 U/L L=46 H=116 6768-6 LOINC SGOT (AST) 27 U/L L=15 H=37 1920-8 LOINC SGPT (ALT) 29 U/L L=12 H=78 1742-6 LOINC TOTAL PROTEIN 7.4 gm/dL L=6.0 H=8.0 2885-2 LOINC ALBUMIN 3.9 gm/dL L=3.4 H=5.0 1751-7 LOINC AGE 57 years eGFR (non-Afr.Amer.) 74 mL/min 85677-6 LOINC eGFR (Afr-Anguillan) 89 mL/min 04768-2 LOINC Social History Type Status Start Date End Date Code Code Syst em Smoking History Never smoker (Never Smoked) 038309538 SNOMED CT Sex Male Hospital Discharge Instructions Should you have any questions prior to discharge, please contact a member of your healthcare team. If you have left the hospital and have any questions, please contact your primary care physician. Reason For Referral No Data Found Plan of Treatment LAB DRAW 20MIN 03/30/2023 Encounters Encounter Diagnosis Start Date Code Code Sys tem Encounter for general adult medical examination without abnormal findings 03/30/2023 SNOMED-CT Personal Care Team Section Performer Name Performer Role Active Date Inactive Da te
--- OUTSIDE RECORDS SUMMARY | 2024-01-10 00:42 | XMS_ITS ---
Author Organization Unknown Address [address] [place] [phone] Phone Care Team Providers Care Terminal Manager Name Role Phone SAMSON Thomas Attending Unavaila ble Social History Type Status Start Date End Date Code Code Syst em Smoking History Never smoker (Never Smoked) 718392304 SNOMED CT Sex Male Hospital Discharge Instructions Should you have any questions prior to discharge, please contact a member of your healthcare team. If you have left the hospital and have any questions, please contact your primary care physician. Reason For Referral No Data Found Plan of Treatment LAB DRAW 20MIN 03/30/2023 Encounters Encounter Diagnosis Start Date Code Code Sys tem Screening for malignant neoplasm of colon 03/18/2023 [id number] SNOMED-CT Personal Care Team Section Performer Name Performer Role Active Date Inactive Da te
--- NOTE | 2024-01-10 07:45 | DI.MRI_ITS ---
Exam(s) MR CERVICAL SPINE WO EXAM: MR CERVICAL SPINE WO CLINICAL HISTORY: RUE pain, cervical radicular pain, M54.12 radiculopathy cervical region TECHNIQUE: Multiplanar multisequence MRI of the cervical spine was performed without intravenous con trast. COMPARISON: MR MR CERVICAL SPINE WO from 05/29/2022 FINDINGS: BONES: Vertebral body heights are maintained. Alignment is normal. Bone marrow signal intensity is wi thin normal limits. CERVICAL CORD: Craniovertebral junction is unremarkable. The cervical cord is normal size and signal intensity. SOFT TISSUES: Unremarkable. C2-3: No disc herniation or bulge is identified. No evidence of neural foraminal narrowing. No signi ficant central canal stenosis. C3-4: No disc herniation. Small posteriorly projecting osteophytes. Left-sided facet spurring cause s moderate left neural foraminal narrowing. Mild left no significant central canal stenosis. C4-5: No disc herniation or bulge is identified. Facet degenerative changes cause severe rightneural foraminal narrowing. No significant central canal stenosis. C5-6: Moderate loss of disc height. Small disc osteophytes..Mild bilateral neural foraminal narrowin g. No significant central canal stenosis. C6-7: Moderate loss of disc height. Small disc osteophytes. Mild bilateral neural foraminal narrowi ng. No significant central canal stenosis. C7-T1: No disc herniation or bulge is identified. Prominent facet degenerative changes. Mild left n eural foraminal narrowing. Severe right no significant central canal stenosis. IMPRESSION: Prominent facet degenerative changes at multiple levels. Findings are most severe on the right at C4 -5 and C7-T1 severe left neural foraminal narrowing at C3-4. DATA REPOSITORY:
== END 2024-01-10 00:54 ==
LOC: DI 00:35
PROVIDERS: PCP Nurse Practitioner Family; Visit Provider Anesthesiology Pain Medicine
DX: M54.12 Radiculopathy, cervical region (principal)
CPT/HCPCS: 72141

== ENCOUNTER 2024-01-20 11:59 | Outpatient (CLI) | payer MEDICAID, SELFPAY ==
--- NOTE | 2024-01-20 07:00 | DI.RAD_ITS ---
Exam(s) XR PAIN CLINIC CERVICAL SP 2V EXAM: XR PAIN CLINIC CERVICAL SP 2V CLINICAL HISTORY: DX: Cervical Radiculopathy. TECHNIQUE: Fluoroscopy was provided for the referring physician for guidance with performing pain cl inic injection procedure. COMPARISON: No exams were available for comparison FINDINGS: Please see procedure note for details. Fluoro time: 20.3 seconds RADIATION DOSE DELIVERED: Ka,r=1.42 mGy
[2024-01-20 12:08] VITALS: BP 124/75; PULSE 89; RESP 20; TEMP 36.8; O2SAT 98
--- NOTE | 2024-01-20 12:08 | PDOC.PAIN_ITS ---
Date of service: 01/20/24 Time of Service: 12:48 Pain Managment Procedure Note Procedure Note Procedure Note: ? Pre-procedure Diagnosis: M54.12- Radiculopathy, cervical region ? Post-procedure Diagnosis:? The same as above ? Sedation:? ? none ? Medication: Depo-Medrol 80 mg, Omnipaque 1 mL ? Estimated blood loss:? less than 2 cc ? Surgeon:? Edis Kent MD COMMENT: pt has R C4-5 and C7-T1 foraminal stenosis ? Procedure Detail:? The procedure and potential risks were explained to the patient and informed written consent was obtained. The patient was escorted to the procedure room and placed in the prone position. Pillows were utilized for proper positioning and comfort. Time out was performed in the procedure room with nursing staff confirming the patient's identity, procedure to be performed, allergies, and any blood thinning or anti-platelet medications.? The patient's neck and upper back was prepped with ChloraPrep and draped in a sterile fashion. Sterile technique was maintained throughout the procedure.? Sterile gloves were used, a face mask was worn, and new single dose vials of all medications were used with the top being swabbed with alcohol and given time to dry prior to with drawal of medication. Lidocaine 1% was used to anesthetize the skin. Using a 25- gauge 1.5 inch needle, 1% lidocaine was instilled into the superficial soft tissue overlying the targeted area to provide local anesthesia. With fluoroscopic guidance, a 17 -gauge Tuohy needle was advanced toward the interlaminar space of C7-T1. The needle was then advance through the ligamentum flavum and into the posterior epidural space using the loss of resistance technique. Correct needle placement was confirmed through review of the AP and contralateral oblique fluoroscopic views. A 19-gauge Arrow catheter was threaded cephalad to the Right C5 Following negative aspiration, one cc of Omnipaque 240 contrast was injected which confirmed good flow throughout the epidural space and no evidence of vascular flow or flow into adjacent compartments. Next, following negative aspiration, 1 cc's of normal saline and 80mg of Depo-Medrol was injected. The needle and catheter were gently removed intact. The patient tolerated the procedure well and was transported to the recovery area for observation and discharge instructions. Permanent images saved and recorded. Plan:? Follow up 2-3 WEEKS. COMMENT: would repeat prn. consider surg eval
[2024-01-20 12:44] VITALS: PULSE 87; O2SAT 96
[2024-01-20] MEDS: methylPREDNISolone ACETATE 40 MG/ML VIAL IJ (12:50)
[2024-01-20] MEDS: Omnipaque 240 MG/ML 50 ML BTL IJ (12:50)
[2024-01-20] MEDS: Epidural Tray 1 EACH MC (12:51)
== END 2024-01-20 12:00 | disposition home or self-care (01) ==
LOC: PC 11:59
PROVIDERS: PCP Nurse Practitioner Family; Visit Provider Anesthesiology Pain Medicine
DX: M54.12 Radiculopathy, cervical region (principal)
CPT/HCPCS: 00123; 62321; 72040; J1010; Q9967

== ENCOUNTER 2024-02-10 09:21 | Outpatient (CLI) | payer MEDICAID, SELFPAY ==
[2024-02-10 09:39] VITALS: BP 125/78; PULSE 71; RESP 18; TEMP 36.8; O2SAT 99
[2024-02-10 10:00] VITALS: O2SAT 97
[2024-02-10 10:10] VITALS: O2SAT 100
[2024-02-10] MEDS: Epidural Tray 1 EACH MC (10:17)
[2024-02-10] MEDS: Omnipaque 240 MG/ML 50 ML BTL IJ (10:17)
[2024-02-10] MEDS: methylPREDNISolone ACETATE 40 MG/ML VIAL IJ (10:17)
--- NOTE | 2024-02-10 10:17 | PDOC.PAIN_ITS ---
Date of service: 02/10/24 Time of Service: 10:21 Pain Managment Procedure Note Procedure Note Procedure Note: CERVICAL EPIDURAL STEROID INJECTION ? Pre-procedure Diagnosis: M54.12- Radiculopathy, cervical region ? Post-procedure Diagnosis:? The same as above ? Sedation:? ? none ? Medication: Depo-Medrol 80 mg, Omnipaque 1 mL ? Estimated blood loss:? less than 2 cc ? Surgeon:? Edis Kent MD Comment: Patient has severe foraminal stenosis at C4-5 and C7-T1 on the right with right radicular pain and some weakness in his hand. He had 1 cervical epidural steroid injection which gave him minimal relief. ? Procedure Detail:? The procedure and potential risks were explained to the patient and informed written consent was obtained. The patient was escorted to the procedure room and placed in the prone position. Pillows were utilized for proper positioning and comfort. Time out was performed in the procedure room with nursing staff confirming the patient's identity, procedure to be performed, allergies, and any blood thinning or anti-platelet medications.? The patient's neck and upper back was prepped with ChloraPrep and draped in a sterile fashion. Sterile technique was maintained throughout the procedure.? Sterile gloves were used, a face mask was worn, and new single dose vials of all medications were used with the top being swabbed with alcohol and given time to dry prior to withdrawal of medication. Lidocaine 1% was used to anesthetize the skin. Using a 25-gauge 1.5 inch needle, 1% lidocaine was instilled into the superficial soft tissue overlying the targeted area to provide local anesthesia. With fluoroscopic guidance, a 17 -gauge Tuohy needle was advanced toward the interlaminar space of C7-T1. The needle was then advance through the ligamentum flavum and into the posterior epidural space using the loss of resistance technique. Correct needle placement was confirmed through review of the AP and contralateral oblique fluoroscopic views. A 19-gauge Arrow catheter was threaded cephalad to the Right Following negative aspiration, one cc of Omnipaque 240 contrast was injected which confirmed good flow throughout the epidural space and no evidence of va scular flow or flow into adjacent compartments. Next, following negative aspiration, 1 cc's of normal saline and 80mg of Depo-Medrol was injected. The needle and catheter were gently removed intact. The patient tolerated the procedure well and was transported to the recovery area for observation and discharge instructions. Permanent images saved and recorded. Plan:? Follow up PRN. PAIN PRE PROCEDURE 02/19 POST PROCEDURE 02/19 COMMENT: Patient has appointment with neurosurgeon February 23.
--- NOTE | 2024-02-10 10:18 | DI.RAD_ITS ---
Exam(s) XR PAIN CLINIC CERVICAL SP 2V EXAM: XR PAIN CLINIC CERVICAL SP 2V CLINICAL HISTORY: Dx: Cervical Radiculopathy TECHNIQUE: 2D and realtime digital imaging was performed. CONTRAST MATERIAL: Refer to procedure report. COMPARISON: No exams were available for comparison FINDINGS: Fluoroscopy was provided for Dr. Kent during the performance of a cervical epidural steroid injec tion. Please refer to the procedure report for complete details. Ka,r=3.67 mGy IMPRESSION: RADIATION DOSE DELIVERED: 0.0 0.0 0
== END 2024-02-10 09:22 | disposition home or self-care (01) ==
LOC: PC 09:21
PROVIDERS: PCP Nurse Practitioner Family; Visit Provider Anesthesiology Pain Medicine
DX: M54.12 Radiculopathy, cervical region (principal)
CPT/HCPCS: 00123; 62321; 72040; J1010; Q9967

== ENCOUNTER 2024-03-20 10:21 | Outpatient (REF) | payer MEDICAID, SELFPAY ==
--- OUTSIDE RECORDS SUMMARY | 2024-03-20 10:23 | XMS_ITS | Clinical Summary ---
Author Organization [facility] Address [facility] [place] [address] Care Team Providers Care Print Production Associate Name Role Phone FaithElizabetivet Bates APRN Primary Care Provider [phone] Allergies No known active allergies Medications Medication Sig Dispensed Refills Start Date End Date Status methylphenidate LA (Ritalin LA) 10 mg LA capsule Take 1 capsule by mouth 3 times daily. Active gabapentin (Neurontin) 300 mg capsule Take 4 capsules by mouth 3 times daily. Active traMADoL (Ultram) 50 mg tablet Take 50 mg by mouth every 6 hours. Active Active Problems Problem Noted Date Diagnosed Date Numbness and tingling 02/05/2024 Right arm pain 02/05/2024 Right hand weakness 02/05/2024 Arthritis 02/05/2024 Asthma 02/05/2024 History of Lyme disease 02/05/2024 Encounters Date Type Department Care Team Description 02/25/2024 2:50 PM EDT Office Visit Neurosurgery at [facility] [place] [address] Salome Bazzi MD Pearl, Alyssa M, PA Synovial cyst; Other spondylosis with radiculopathy, cervical region; Spinal stenosis of cervical region with radiculopathy 02/25/2024 Travel 02/05/2024 Abstract Neurosurgery at [facility] [place] [address] Maira Oneil CMA 01/29/2024 Telephone Neurosurgery at [facility] [place] [address] Maira Oneil CMA 01/27/2024 Transcribe Orders eDH Incoming Referrals [phone] Edis Kent MD Radiculopathy, cervical 01/10/2024 Ancillary Procedure Radiology Library at [facility] [place] [address] Peace Cuevas APRN from Last 3 Months Family History Medical History Relation Comments Diabetes Maternal Grandmother Parkinsonism Mother Relation Status Comments Maternal Grandmother Mother Social History Tobacco Use Types Packs/Day Years Used Date Smoking Tobacco: Never Smokeless Tobacco: Never Tobacco Cessation:Counseling Given: Not Answered Alcohol Use Standard Drinks/Week Comments Yes 0 (1 standard drink = 0.6 oz pur e alcohol) occasionally Sex and Gender Information Value Date Recorded Sex Assigned at Not on file Gender Identity Not on file Sexual Orientation Not on file Last Filed Vital Signs Vital Sign Reading Time Taken Comments Blood Pressure 115/79 02/25/2024 2:44 PM EDT Pulse 94 02/25/2024 2:44 PM EDT Temperature 36.3 ??C (97.3 ??F) 12/27/2014 1:58 PM ED T Respiratory Rate 18 12/27/2014 1:58 PM EDT Oxygen Saturation 99% 02/25/2024 2:44 PM EDT Inhaled Oxygen Concentration - - Weight 60.7 kg (133 lb 12.8 oz) 02/25/2024 2:44 PM EDT Height 172.7 cm (5' 8) 02/25/2024 2:44 PM EDT Body Mass Index 20.34 02/25/2024 2:44 PM EDT Plan of Treatment Upcoming Encounters Date Type Department Care Team (Latest Contact Info) Description 04/03/2024 10:00 AM EST Telephone Neurosurgery at [facility] [place] [address] 04/08/2024 9:45 AM EST Telephone Pre-Admission Testing at [facility] [place] [address] 04/13/2024 9:40 AM EST Hospital Encounter Operating Room [facility] [place] [address] Salome Bazzi MD 10 [facility] [place] [address] 04/13/2024 9:40 AM EST - 04/13/2024 11:25 AM EST Surgery Operating Room [facility] [address] [place] [address] Salome Bazzi MD [address] [facility] [place] [address] LAMINECTOMY, FACETECTOMY & FORAMINOTOMY, CX, ONE LEVEL (WRVU 17.95) 04/20/2024 2:00 PM EST Telephone Neurosurgery at [address] [address] 05/20/2024 3:35 PM EST Office Visit Neurosurgery at [address] [address] Orin Méndez PA [address] [facility] [place] [address] 07/14/2024 2:10 PM EST Office Visit Neurosurgery at [address] [address] Salome Bazzi MD [address] [facility] [place] [address] Scheduled Procedures Name Priority Associated Diagnoses Date/Ti me LAMINECTOMY, FACETECTOMY & FORAMINOTOMY, CX, ONE LEVEL (WRVU 17.95) cervical stenosis 04/13/2024 9:40 AM EST Health Maintenance Due Date Last Done Comments CT Colonography 1965 Colonoscopy 1965 Colorectal Cancer Screening 1965 FIT DNA 1965 FIT 1965 Sigmoidoscopy (10 year) with FIT yearly 1965 Sigmoidoscopy 1965 Pneumococcal Vaccine: At-Risk 5-64yrs (1 of 2 - PCV) 0 1971 HIV screen 1983 Hepatitis C Screening 1983 Lipid Screening 1983 Hepatitis B vaccine (0-59 yrs) (1) 1984 Tetanus/Diphtheria/Pertussis Vaccines (1 - Tdap) 05/24 Zoster vaccine (1 of 2) 2015 Advance Directive 2020 Covid-19 Vaccine (1 - season) 2024 Influenza (Flu) vaccine (1 o f 1 - Influenza standard series) 01/12/2024 Procedures Procedure Name Priority Date/Time Associated Diagnosis Comments FILM LIBRARY STORAGE ONLY MR SPINE Routine 01/10/2024 12:00 AM EDT MRI/MRA SCAN 01/10/2024 12:00 AM EDT from Last 3 Months Results * Scan Doc: MRI/MRA (01/10/2024 12:00 AM EDT) Anatomical Region Laterality Modality Other Narrative 01/10/2024 12:00 AM EDT Ordered by an unspecified provider. Scanning Provider MEDIA MGR SCAN EXT O RDR/RSLT * Film Library- Storage Only MR Spine (01/10/2024 12:00 AM EDT) Narrative [facility] - 01/29/2024 4:59 PM EDT This exam is auto-finalizing. It's purpose is for storage only. Peace Cuevas APRN IMG FILM LIBRARY OR DERABLES [place], [place] from Last 3 Months Care Teams Print Production Associate Relationship Specialty Start Date End Date Peace Cuevas APRN [address] [place], [place] [id number] PCP - General Family Medicine 01/27/24
--- OUTSIDE RECORDS SUMMARY | 2024-03-20 10:23 | XMS_ITS | Encounter Summary ---
Author Organization [facility] Address [facility] [place] [address] Care Team Providers Care Tipple Engineer Name Role Phone Faith Peace Bates APRN Primary Care Provider [phone] Reason for Visit * Reason Comments Establish Care Right arm pain, numb ness in pinky and ring finger and top of hand, shoulder pain * Consultation (Urgent) - Closed Specialty Diagnoses / Procedures Referred By Contapolonia t Referred To Contact Neurosurgery Diagnoses Radiculopathy, cervical Edis Kent MD [address] [place] [address] Salome Bazzi MD [address] [place] [address] Referral ID Status Reason Start Date Expiration Date V isits Requested Visits Authorized [id number] Closed Consult, Test & Treat 01/27/2024 01/26/2025 1 1 Encounter Details Date Type Department Care Team (Latest Contact Info) Description 02/25/2024 2:50 PM EDT Office Visit Neurosurgery at [facility] [address] [place] [address] Salome Bazzi MD [address] [place] [address] Orin Méndez PA [address] [facility] [place] [address] Synovial cyst; Other spondylosis with radiculopathy, cervical region; Spinal stenosis of cervical region with radiculopathy Social History Tobacco Use Types Packs/Day Years [...] Pulse 94 02/25/2024 2:44 PM EDT Temperature - - Respiratory Rate - - Oxygen Saturation 99% 02/25/2024 2:44 PM EDT Inhaled Oxygen Concentration - - Weight 60.7 kg (133 lb 12.8 oz) 02/25/2024 2:44 PM EDT Height 172.7 cm (5' 8) 02/25/2024 2:44 PM EDT Body Mass Index 20.34 02/25/2024 2:44 PM EDT documented in this encounter Progress Notes * Orin Méndez PA - 02/25/2024 2:50 PM EDT Subjective: HPI: Jamal Evans is a 58 y.o. male presenting to the [facility] with a chief complaint of right UE pain. Jamal first noted symptoms in medial scapula in October 2023. About 6 weeks ago, he noted spontaneous onset of severe right arm pain. He describes pain in his axilla that radiated intohis medial upper arm he noted pain that wraps into his lateral lower arm and into his entire hand. More recently he has noted numbness in digits 4 and 5 and numbness in the dorsum of his right hand. He notes he is losing strength in his right hand. He underwent a cervical epidural steroid injectionand did not note any improvement. This was repeated and he did obtain short-term relief. He is using high doses of gabapentin without significant improvement. He is using tramadol as well. He did notnote improvement with oral steroids. He has no difficulty with bladder function or with fine motor skills. Objective: VS: BP 115/79 (BP Location (NBP): Left arm, Patient Position: Sitting, BP Cuff Sizes: Adult (25-34 cm)) Pulse 94 Ht 172.7 cm (5' 8) Wt 60.7 kg (133 lb 12.8 oz) SpO2 99% BMI 20.34 kg/m?? Neck: he can flex and extend his cervical spine without Lhermitte's. Cervical extension causes neckand shoulder pain. Cervical flexion causes midline and medial scapular pain. Upper extremities: he has no focal weakness in biceps, triceps, deltoid. His dynamometer repairer strength is diminished on the right when compared to the left. He has finger abduction is diminished on the right when compared to the left. His biceps and brachioradialis reflexes are physiologic. His triceps reflex is mute on the right and +2 on the left. Lower extremities: He has full strength in his quadricep, psoas, hamstring. He can toe and heel walk. His reflexes are physiologic in the patella and ankles. Neuro: he is awake alert and oriented x 4. He can tandem walk quite well. Assessment and Plan: Right C8 Radiculopathy He will be scheduled for a right C8 decompression with a posterior approach. We discussed the risksand benefit of surgery and expected recovery.. All of his questions were answered. * Salome Bazzi MD - 02/25/2024 2:50 PM EDT Jamal is a seen today for his right upper extremity pain. She is in weakness. Please Orin Cormier'snote for full details of today's visit. Briefly he is likely had some symptoms of his a C8 nerve root for about 6 months but especially bad in the past 6 7 weeks. It is not responded well to conservative measures for any length of time except maybe 2 weeks with the second epidural steroid injection. He has been doing physical therapy. He describes a C8 distribution type pain and is getting weakness in the intrinsics. The gabapentin has been working but the pain is then returning following his most recent epidural steroid injection. He has a synovial cyst compressing the C8 foramen at the C7-T1 level on the right side consistent with his symptoms. He also is a C5 foraminal narrowing but it looks like that facet may be fused on the right side and he is not describing C5 radicular features at this time. He does not have any cord compression. He does have chronic neck pain and there is significant disc degeneration in the cervical spine that could be contributing to this. I offered him a posterior decompression of the C8 nerve root on the right side with a medial facetectomy done microscopically. This would avoid a fusion and I feel we can decompress the C8 nerve root nicely and get him some symptom relief. Risks of surgery including but not excluding infection bleeding failure to im prove recurrence of spinal fluid leak among others was all discussed in detail and he does very much wish to proceed. He knows he can call at anytime with further question or concerns documented in this encounter Plan of Treatment Upcoming Encounters Date Type Department Care Team (Latest Contact Info) Description 04/03/2024 10:00 AM EST Telephone Neurosurgery at [address] [address] 04/08/2024 9:45 AM EST Telephone Pre-Admission Testing at [address] [address] 04/13/2024 9:40 AM EST Hospital Encounter Operating Room [facility] [place] [address] Salome Bazzi MD [address] [facility] [place] [address] 04/13/2024 9:40 AM EST - 04/13/2024 11:25 AM EST Surgery Operating Room [address] [address] Salome Bazzi MD [facility] [place] [address] LAMINECTOMY, FACETECTOMY & FORAMINOTOMY, CX, ONE LEVEL (WRVU 17.95) 04/20/2024 2:00 PM EST Telephone Neurosurgery at [place] [address] 05/20/2024 3:35 PM EST Office Visit Neurosurgery [place] [phone] Orin Méndez PA [facility] [address] 07/14/2024 2:10 PM EST Office Visit Neurosurgery at [place] [address] Salome Bazzi MD [facility] [place] [address] Scheduled Orders Name Type Priority Associated Diagnoses Orde r Schedule EKG 12 Lead ECG Routine Synovial cyst Other spondylosis with radiculopathy, cervical region Spinal stenosis of cervical region with radiculopathy Expected: 02/25/2024, Expires: 08/26/2024 SURGICAL CASE REQUEST: LAMINECTOMY, FACETECTOMY & FORAMINOTOMY, CX, ONE LEVEL (WRVU 17.95) Procedures Routine One Time for 1 Occurrences starting 02/25/2024 until 02/25/2024 Scheduled Procedures Name Priority Associated Diagnoses Date/Ti me LAMINECTOMY, FACETECTOMY & FORAMINOTOMY, CX, ONE LEVEL (WRVU 17.95) cervical stenosis 04/13/2024 9:40 AM EST documented as of this encounter Visit Diagnoses Diagnosis Synovial cyst Synovial cyst, unspecified Other spondylosis with radiculopathy, cervical region Spinal stenosis of cervical region with radiculopathy documented in this encounter Care Teams Tipple Engineer Relationship Specialty Start Date End Date Peace Cuevas APRN [address] [facility] [place] [address] PCP - General Family Medicine 01/27/24 documented as of this encounter
--- OUTSIDE RECORDS SUMMARY | 2024-03-20 10:23 | XMS_ITS | Encounter Summary ---
[facility] [place] [address] Care Team Providers Care Avionics Supervisor Name Role Phone Elizabet Cuevasivet Bates APRN Primary Care Provider [phone] Encounter Details Date Type Department Care Team (Latest Contact Info) Description 02/25/2024 Travel Social History Tobacco Use Types Packs/Day [...] as of this encounter Plan of Treatment Upcoming Encounters Date Type Department Care Team (Latest Contact Info) Description 04/03/2024 10:00 AM EST Telephone Neurosurgery at [address] [address] 04/08/2024 9:45 AM EST Telephone Pre-Admission Testing at [address] [address] 04/13/2024 9:40 AM EST Hospital Encounter Operating Room [address] [address] Salome Bazzi MD [address] [place] [address] [place] [address] 04/13/2024 9:40 AM EST - 04/13/2024 11:25 AM EST Surgery Operating Room [address] [place] [address] Salome Bazzi MD [facility] [place] [address] LAMINECTOMY, FACETECTOMY & FORAMINOTOMY, CX, ONE LEVEL (WRVU 17.95) 04/20/2024 2:00 PM EST Telephone Neurosurgery at [facility] [place] [address] 05/20/2024 3:35 PM EST Office Visit Neurosurgery [place] [address] Orin Méndez PA [facility] [address] 07/14/2024 2:10 PM EST Office Visit Neurosurgery [place] [address] Salome Bazzi MD [facility] [place] [address] Scheduled Procedures Name Priority Associated Diagnoses Date/Ti me LAMINECTOMY, FACETECTOMY & FORAMINOTOMY, CX, ONE LEVEL (WRVU 17.95) cervical stenosis 04/13/2024 9:40 AM EST documented as of this encounter Visit Diagnoses Not on filedocumented in this encounter Care Teams Avionics Supervisor Relationship Specialty Start Date End Date Peace Cuevas APRN [address] [place] [address] PCP - General Family Medicine 01/27/24 documented as of this encounter
--- OUTSIDE RECORDS SUMMARY | 2024-03-20 10:23 | XMS_ITS | Encounter Summary ---
Author [facility] [address] Care Team Providers Care Slack Line Yarder Name Role Phone Peace Cuevas SIVAN Primary Care Provider [phone] Encounter Details Date Type Department Care Team (Late st Contact Info) Description 01/29/2024 Telephone Neurosurgery at [address] [address] Maira Oneil CMA Social History Tobacco Use Types Packs/Day Years Used Date Smoking Tobacco: Never Sex and Gender Information Value Date Recorded Sex Assigned at Not on file Gender Identity Not on file Sexual Orientation Not on file documented as of this encounter Miscellaneous Notes * Telephone Encounter - Maira Oneil CMA - 01/29/2024 9:[address] Kent calls requesting to discuss having patient seen sooner. documented in this encounter Plan of Treatment Upcoming Encounters Date Type Department Care Team (Latest Contact Info) Description 04/03/2024 10:00 AM EST Telephone Neurosurgery at [facility] [address] [place] [address] 04/08/2024 9:45 AM EST Telephone Pre-Admission Testing at [facility] [address] [place] [address] 04/13/2024 9:40 AM EST Hospital Encounter Operating Room [facility] [address] [place] [address] Salome Bazzi MD [address] [facility] [place] [address] 04/13/2024 9:40 AM EST - 04/13/2024 11:25 AM EST Surgery Operating Room [address] [address] Salome Bazzi MD [address] [facility] [place] [address] LAMINECTOMY, FACETECTOMY & FORAMINOTOMY, CX, ONE LEVEL (WRVU 17.95) 04/20/2024 2:00 PM EST Telephone Neurosurgery at [address] [address] 05/20/2024 3:35 PM EST Office Visit Neurosurgery at [address] [address] Orin Méndez PA [address] [facility] [place] [address] 07/14/2024 2:10 PM EST Office Visit Neurosurgery at [address] [address] Salome Bazzi MD [address] [place] [address] [place] [address] Scheduled Procedures Name Priority Associated Diagnoses Date/Ti me LAMINECTOMY, FACETECTOMY & FORAMINOTOMY, CX, ONE LEVEL (WRVU 17.95) cervical stenosis 04/13/2024 9:40 AM EST documented as of this encounter Visit Diagnoses Not on filedocumented in this encounter Care Teams Slack Line Yarder Relationship Specialty Start Date End Date Peace Cuevas APRN [address] [place] [address] PCP - General Family Medicine 01/27/24 documented as of this encounter
--- OUTSIDE RECORDS SUMMARY | 2024-03-20 10:23 | XMS_ITS | Encounter Summary ---
Author Organization [facility] [place] [address] Care Team Providers Care Marker Machine Name Role Phone Peace Cuevas SIVAN Primary Care Provider [phone] Encounter Details Date Type Department Care Team (Late st Contact Info) Description 02/05/2024 Abstract Neurosurgery at [address] [address] Maira Oneil CMA Social History Tobacco Use Types Packs/Day Years Used Date Smoking Tobacco: Never Alcohol Use Standard Drinks/Week Comments [...] 04/03/2024 10:00 AM EST Telephone Neurosurgery at [address] [address] 04/08/2024 9:45 AM EST Telephone Pre-Admission Testing at [address] [address] 04/13/2024 9:40 AM EST Hospital Encounter Operating Room [address] [address] Salome Bazzi MD 10 [facility] [place] [address] 04/13/2024 9:40 AM EST - 04/13/2024 11:25 AM EST Surgery Operating Room [facility] [place] [address] Salome Bazzi MD 10 [facility] [place] [address] LAMINECTOMY, FACETECTOMY & FORAMINOTOMY, CX, ONE LEVEL (WRVU 17.95) 04/20/2024 2:00 PM EST Telephone Neurosurgery at [address] [address] 05/20/2024 3:35 PM EST Office Visit Neurosurgery at [address] [address] Orin Méndez PA 10 [facility] [place] [address] 07/14/2024 2:10 PM EST Office Visit Neurosurgery at [address] [address] Salome Bazzi MD [facility] [place] [address] Scheduled Procedures Name Priority Associated Diagnoses Date/Ti dc LAMINECTOMY, FACETECTOMY & FORAMINOTOMY, CX, ONE LEVEL (WRVU 17.95) cervical stenosis 04/13/2024 9:40 AM EST documented as of this encounter Visit Diagnoses Not on filedocumented in this encounter Care Teams Marker Machine Relationship Specialty Start Date End Date Peace Cuevas, INVENTORY REPRESENTATIVE [address] [place] [address] PCP - General Family Medicine 01/27/24 documented as of this encounter
--- OUTSIDE RECORDS SUMMARY | 2024-03-20 10:24 | XMS_ITS | Encounter Summary ---
Author Organization [facility] Address [address] [place] [address] Care Team Providers Care Education Sales Consultant Name Role Phone Remigio Teixeira MD Primary Care Provider [phone] Reason for Referral * Consult, Test and Treat (Routine) - Closed Specialty Diagnoses / Procedures Referred By Tristian sims Referred To Contact Diagnoses Degeneration of lumbar or lumbosacral intervertebral disc Grady Nunez MD [address] [place] [phone] Referral ID Status Reason Start Date Expiration Date V isits Requested Visits Authorized [id number] Closed Specialty Services Required 12/05/2010 1 1 Question Answer Reason for Request: to see JODY Park for postural mandaen exercises Reason for Visit * Reason Comments Back Pain Encounter Details Date Type Department Care Team (Latest Contact Info) Description 12/05/2010 10:00 EDT Office Visit [facility] Spine Program - [address] [place] [address] Grady Nunez MD Degeneration of [...] was a 7-8/10. His L MRI at [facility] on 04/20/2010, I have reviewed with [...] him seen for instructions in doing postural mandaen. He can continue with the home programwith [...] 05/15/2013 added in this encounter Care Teams Education Sales Consultant Relationship Specialty Start Date End Date Remigio Teixeira MD [address] [address] PCP - General 10/19/10 documented as of this encounter
--- OUTSIDE RECORDS SUMMARY | 2024-03-20 10:24 | XMS_ITS | Encounter Summary ---
Author Organization [facility] Address [address] [place] [address] Care Team Providers Care Harp Regulator Name Role Phone Remigio Teixeira MD Primary Care Provider [phone] Encounter Details Date Type Department Care Team (Late st Contact Info) Description 11/02/2019 Orders Only [facility] Spine Program - [address] [place] [address] Arlette Cavazos PA-C [address] [facility] [place] [address] Social History Tobacco Use Types [...] on filedocumented in this encounter Care Teams Harp Regulator Relationship Specialty Start Date End Date Remigio Teixeira MD [address] [address] PCP - General 10/19/10 documented as of this encounter
--- OUTSIDE RECORDS SUMMARY | 2024-03-20 10:24 | XMS_ITS | Encounter Summary ---
Author Organization [facility] [place] [address] Care Team Providers Care School Bus Driver/Mechanic Name Role Phone Remigio Teixeira MD Primary Care Provider [phone] Encounter Details Date Type Department Care Team (Late st Contact Info) Description 05/29/2022 Ancillary Procedure Radiology Library at [facility] [place] [place] [address] Edis Kent MD [address] [place] [address] Social History Tobacco Use Types Packs/Day Years Used Date Smoking Tobacco: Never Sex and Gender Information Value Date Recorded Sex Assigned at Not on file Gender Identity Not on file Sexual Orientation Not on file documented as of this encounter Plan of Treatment Upcoming Encounters Date Type Department Care Team (Latest Contact Info) Description 04/03/2024 10:00 AM EST Telephone Neurosurgery at [facility] [place] [address] 04/08/2024 9:45 AM EST Telephone Pre-Admission Testing at [facility] [place] [address] 04/13/2024 9:40 AM EST Hospital Encounter Operating Room [facility] [place] [id number] Salome Bazzi MD [facility] [place] [address] 04/13/2024 9:40 AM EST - 04/13/2024 11:25 AM EST Surgery Operating Room [facility] [place] [address] Salome Bazzi MD 10 [facility] [place] [address] LAMINECTOMY, FACETECTOMY & FORAMINOTOMY, CX, ONE LEVEL (WRVU 17.95) 04/20/2024 2:00 PM EST Telephone Neurosurgery at [facility] 10 [place] [address] 05/20/2024 3:35 PM EST Office Visit Neurosurgery at [facility] 10 [place] [address] Orin Méndez PA [address] [facility] [place] [address] 07/14/2024 2:10 PM EST Office Visit Neurosurgery at [address] [address] Salome Bazzi MD 10 [facility] [place] [address] Scheduled Procedures Name Priority Associated Diagnoses Date/Ti me LAMINECTOMY, FACETECTOMY & FORAMINOTOMY, CX, ONE LEVEL (WRVU 17.95) cervical stenosis 04/13/2024 9:40 AM EST documented as of this encounter Procedures Procedure Name Priority Date/Time Associated Diagnosis Comments FILM LIBRARY STORAGE ONLY MR SPINE Routine 05/29/2022 12:00 AM EST documented in this encounter Results * Film Library- Storage Only MR Spine (05/29/2022 12:00 AM EST) Narrative DH RAD - 01/27/2024 9:04 PM EDT This exam is auto-finalizing. It's purpose is for storage only. Edis Kent MD [facility] FILM LIBRARY ORD ERABLES [place], [place] documented in this encounter Visit Diagnoses Not on filedocumented in this encounter Care Teams School Bus Driver/Mechanic Relationship Specialty Start Date End Date Remigio Teixeira MD PCP - General 10/15/14 03/11/23 documented as of this encounter
--- OUTSIDE RECORDS SUMMARY | 2024-03-20 10:24 | XMS_ITS | Encounter Summary ---
Author Organization [facility] Address [address] [place] [address] Care Team Providers Care Fire Department Battalion Chief Name Role Phone Remigio Teixeira MD Primary Care Provider [phone] Reason for Visit * Reason Comments Neck Pain radiates right shoul angelica blade * Consult (Routine) - Specialty Report Received Specialty Diagnoses / Procedures Referred [facility] Referred To Contact Pain Medicine Diagnoses Neck pain Arlette Cavazos PA-C [address] [facility] [place] [address] [facility] [address] [place] [address] Referral ID Status Reason Start Date Expiration Date Visits Requested Visits Authorized [id number] Specialty Report Received Specialty Services Required 03/15/2014 1 1 Encounter Details Date Type Department Care Team (Latest Contact Info) Description 03/31/2014 10:30 EST Office Visit [facility] Interventional Pain [address] [place] [address] Adelfo Campa, DO [address] [facility] [address] [place] [address] Leyla Mccoy MD [address] [place] [phone] Cervical spondylosis without myelopathy (Primary Dx); Facet [...] 03/31/2014 11:04 EST [facility] [place] [phone] Patient Instructions You have had your bilateral [...] Evans : 1965 Date of Service: 04/01/2014 It Quality Analyst: Adelfo Campa DO Abrasive Sawyer: Vinay Mccoy MD Interval History: Mr. Evans [...] Management Rooming Note Does patient have a Title One Reading Teacher? yes Is patient NPO? (Solids since midnight [...] Pain. added in this encounter Care Teams Fire Department Battalion Chief Relationship Specialty Start Date End Date Remigio Teixeira MD [address] [place] [address] PCP - General 10/19/10 documented as of this encounter
--- OUTSIDE RECORDS SUMMARY | 2024-03-20 10:24 | XMS_ITS | Encounter Summary ---
Author Organization [facility] Address [facility] [place] [address] Care Team Providers Care Machine Tester Name Role Phone Remigio Teixeira MD Primary Care Provider [phone] Reason for Visit * Reason Comments Establish Care Encounter Details Date Type Department Care Team (Latest Contact Info) Description 12/27/2014 1:30 PM EDT Office [place] [address] Lauro Santos MD [facility] DR [place] [address] Lyme disease; Tinnitus, left; Fatigue; Primary osteoarthritis [...] patient is a corea who lives in [place], [place]. He does not smoke. He says that he has alcohol about once every two months. He has never traveled internationally. He has lived in [place] prior to moving to [place] about 18 years ago. At the age of 19, he lived in [place]. He has exposure to a number of [...] 45 For prolonged services, actual times of [id number] time with patient documented in this encounter Plan of Treatment Upcoming Encounters Date Type Department Care Team (Latest Contact Info) Description 04/03/2024 10:00 AM EST Telephone Neurosurgery [place] [place] [address] 04/08/2024 9:45 AM EST Telephone Pre-Admission Testing [place] [facility] [place] [address] 04/13/2024 9:40 AM EST Hospital Encounter Operating [place] [facility] [place] [address] Salome Bazzi MD [facility] [place] [address] 04/13/2024 9:40 AM EST - 04/13/2024 11:25 AM EST Surgery Operating [place] [facility] [place] [address] Salome Bazzi MD [facility] [place] [address] LAMINECTOMY, FACETECTOMY & FORAMINOTOMY, CX, ONE LEVEL (WRVU 17.95) 04/20/2024 2:00 PM EST Telephone Neurosurgery at [address] [address] 05/20/2024 3:35 PM EST Office Visit Neurosurgery at [address] [address] Orin Méndez PA [facility] [place] [address] 07/14/2024 2:10 PM EST Office Visit Neurosurgery at [address] [address] Salome Bazzi MD [facility] [place] [address] Scheduled Procedures Name Priority Associated Diagnoses Date/Ti me LAMINECTOMY, FACETECTOMY & FORAMINOTOMY, CX, ONE LEVEL (WRVU 17.95) cervical stenosis 04/13/2024 9:40 AM EST documented as of this encounter Visit Diagnoses Diagnosis Lyme disease Tinnitus, left Unspecified tinnitus Fatigue Other malaise and fatigue Primary osteoarthritis involving multiple joints documented in this encounter Care Teams Machine Tester Relationship Specialty Start Date End Date Remigio Teixeira MD PCP - General 10/15/14 03/11/23 documented as of this encounter
--- OUTSIDE RECORDS SUMMARY | 2024-03-20 10:24 | XMS_ITS | Encounter Summary ---
Author Organization [facility] [place] [address] Care Team Providers Care Television Specialist Name Role Phone Unknown Primary Care Provider Unavailabl e Encounter Details Date Type Department Care Team (Late st Contact Info) Description 01/10/2024 Ancillary Procedure Radiology Library at [facility] [place] [address] Peace Cuevas, ENGINEERING ASSOCIATE [address] [place] [address] Social History Tobacco Use Types Packs/Day Years Used Date Smoking Tobacco: Never Sex and Gender Information Value Date Recorded Sex Assigned at Not on file Gender Identity Not on file Sexual Orientation Not on file documented as of this encounter Plan of Treatment Upcoming Encounters Date Type Department Care Team (Latest Contact Info) Description 04/03/2024 10:00 AM EST Telephone Neurosurgery at [facility] [place] [address] 04/08/2024 9:45 AM EST Telephone Pre-Admission Testing at [facility] [place] [address] 04/13/2024 9:40 AM EST Hospital Encounter Operating Room [facility] [place] [address] Salome Bazzi MD [address] [place] [address] 04/13/2024 9:40 AM EST - 04/13/2024 11:25 AM EST Surgery Operating Room [facility] [place] [address] Salome Bazzi MD [address] [facility] [place] [address] LAMINECTOMY, FACETECTOMY & FORAMINOTOMY, CX, ONE LEVEL (WRVU 17.95) 04/20/2024 2:00 PM EST Telephone Neurosurgery at [facility] 10 [place] [address] 05/20/2024 3:35 PM EST Office Visit Neurosurgery at [facility] [place] [address] Orin Méndez PA [address] [facility] [place] [address] 07/14/2024 2:10 PM EST Office Visit Neurosurgery at [facility] [place] [address] Salome Bazzi MD [address] [facility] [place] [address] Scheduled Procedures Name Priority Associated Diagnoses Date/Ti me LAMINECTOMY, FACETECTOMY & FORAMINOTOMY, CX, ONE LEVEL (WRVU 17.95) cervical stenosis 04/13/2024 9:40 AM EST documented as of this encounter Procedures Procedure Name Priority Date/Time Associated Diagnosis Comments FILM LIBRARY STORAGE ONLY MR SPINE Routine 01/10/2024 12:00 AM EDT documented in this encounter Results * Film Library- Storage Only MR Spine (01/10/2024 12:00 AM EDT) Narrative DH RAD - 01/29/2024 4:59 PM EDT This exam is auto-finalizing. It's purpose is for storage only. Peace Paulo Faith [facility] FILM LIBRARY OR DERABLES [place], [place] documented in this encounter Visit Diagnoses Not on filedocumented in this encounter Care Teams Television Specialist Relationship Specialty Start Date End Date Unknown None PCP - General 03/12/23 01/26/24 documented as of this encounter
--- OUTSIDE RECORDS SUMMARY | 2024-03-20 10:24 | XMS_ITS | Encounter Summary ---
Author Organization [facility] Address [address] [place] [address] Care Team Providers Care Music Composer Name Role Phone Remigio Teixeira MD Primary Care Provider [phone] Reason for Visit * Reason Onset Date Comments Neck Pain 07/22/2019 Encounter Details Date Type Department Care Team (Late st Contact Info) Description 07/22/2019 Orders Only [facility] Spine Program - [address] [place] [address] Arlette Cavazos PA-C [address] [place] [address] [place] [address] Social History Tobacco Use Types [...] on filedocumented in this encounter Care Teams Music Composer Relationship Specialty Start Date End Date Remigio Teixeira MD [address] [place] [address], [place] [address] PCP - General 10/19/10 documented as of this encounter
--- OUTSIDE RECORDS SUMMARY | 2024-03-20 10:24 | XMS_ITS | Encounter Summary ---
Author Organization [facility] Address [address] [place] [address] Care Team Providers Care Legal Document Specialist Name Role Phone Remigio Teixeira MD Primary Care Provider [phone] Encounter Details Date Type Department Care Team (Late st Contact Info) Description 11/09/2010 Results Only [facility] Spine Program - [address] [place], [place] [phone] Grady Nunez MD Social History Tobacco Use [...] on filedocumented in this encounter Care Teams Legal Document Specialist Relationship Specialty Start Date End Date Remigio Teixeira MD [address] [place] [address] [place] [address] PCP - General 10/19/10 documented as of this encounter
--- OUTSIDE RECORDS SUMMARY | 2024-03-20 10:24 | XMS_ITS | Encounter Summary ---
Author Organization [facility] Address [address] [place] [address] Care Team Providers Care Environmental Monitoring Specialist Name Role Phone Remigio Teixeira MD Primary Care Provider Reason for Referral * Consult (Routine) - Specialty Report Received Specialty Diagnoses / Procedures Referred By Tristian sims Referred To Contact Pain Medicine Diagnoses Neck pain Arlette Cavazos PA-C [address] [place] [address] [facility] [address] [facility] [place] [address] Referral ID Status Reason Start Date Expiration Date Visits Requested Visits Authorized [id number] Specialty Report Received Specialty Services Required 03/15/2014 1 1 Question Answer Reason for Request: Neck pain Comments Recommend C5-C6/C6-C7 B/L facet injections Reason for Visit * Reason Comments Neck Pain Encounter Details Date Type Department Care Team (Late st Contact Info) Description 03/15/2014 10:45 EST Office Visit [facility] Spine Program - [address] [facility] [place] [address] Arlette Cavazos PA-C [address] [place] [address] Neck pain (Primary Dx) Discharge [...] documented as of this encounter Care Teams Environmental Monitoring Specialist Relationship Specialty Start Date End Date Remigio Teixeira MD [address] [place] [address] PCP - General 10/19/10 documented as of this encounter
--- OUTSIDE RECORDS SUMMARY | 2024-03-20 10:24 | XMS_ITS | Encounter Summary ---
Author Organization [facility] Address [address] [place] [address] Care Team Providers Care Glass Cleaner Name Role Phone Remigio Teixeira MD Primary Care Provider [phone] Encounter Details Date Type Department Care Team [...] on filedocumented in this encounter Care Teams Glass Cleaner Relationship Specialty Start Date End Date Remigio Teixeira MD 4 S [facility] 6 [place] [address] PCP - General 10/19/10 documented as of this encounter
--- OUTSIDE RECORDS SUMMARY | 2024-03-20 10:24 | XMS_ITS | Encounter Summary ---
Author Organization [facility] Address [address] [place] [address] Care Team Providers Care Boat Garnisher Name Role Phone Remigio Teixeira MD Primary Care Provider [phone] Reason for Visit * Reason Onset Date Comments Results 04/01/2014 Encounter Details Date Type Department Care Team (Late st Contact Info) Description 04/01/2014 Telephone [facility] [place] [facility] Interventional Pain [address] [place], [place] [phone] Leyla Mccoy MD [address] [place] [address] Results Social History Tobacco Use [...] on filedocumented in this encounter Care Teams Boat Garnisher Relationship Specialty Start Date End Date Remigio Teixeira MD [address] [place] [address] PCP - General 10/19/10 documented as of this encounter
--- OUTSIDE RECORDS SUMMARY | 2024-03-20 10:24 | XMS_ITS | Encounter Summary ---
Author Organization [facility] Address [address] [place] [address] Care Team Providers Care Bead Supervisor Name Role Phone Remigio Teixeira MD Primary Care Provider [phone] Reason for Visit * Reason Comments Pain * Consult (Routine) - Closed Specialty Diagnoses / Procedures Referred By Contapolonia t Referred To Contact Orthopedic Surgery Diagnoses Back pain Neck pain Britta Moon, PLEATING MACHINE OPERATOR [address] [place] [address] [facility] Spine [address] [place] [address] Referral ID Status Reason Start Date Expiration Date Visits Re quested Visits Authorized [id number] Closed 1 1 Encounter Details Date Type Department Care Team (Late st Contact Info) Description 07/23/2019 11:00 EDT Office Visit [facility] Spine Program - [address] [address] Arlette Cavazos PA-C [address] [facility] [place] [address] Chronic bilateral low back pain [...] daily. added in this encounter Care Teams Bead Supervisor Relationship Specialty Start Date End Date Remigio Teixeira MD [address] [place] [address] PCP - General 10/19/10 documented as of this encounter
--- OUTSIDE RECORDS SUMMARY | 2024-03-20 10:24 | XMS_ITS | Encounter Summary ---
Author Organization [facility] Address [address] [place] [address] Care Team Providers Care Business Services Administrator Name Role Phone Remigio Teixeira MD Primary Care Provider [phone] Reason for Visit * (Routine) - Receiving Office to Obtain Authorization Specialty Diagnoses / Procedures Referred By Tristian sims Referred To Contact Procedures MR OUTSIDE IMAGES NEURO Unknown, Provider, MAIN Referral ID Status Reason Start Date Expiration Date Visits Requested Visits Authorized [id number] Receiving Office to Obtain Authorization 9 1 1 Encounter Details Date Type Department Care Team (Latest Contact Info) Description 04/30/2019 14:31 EST - 04/30/2019 23:59 EST Hospital Encounter [facility] Radiology - Main [place] [address] [place] [address] Discharge Disposition: Home or Self Care Social [...] OUTSIDE IMAGES NEURO (04/30/2019 14:32 EST) Narrative [facility] - 04/30/2019 14:32 EST This is a non-reportable exam. Provider Unknown MD [facility]NER OTHER IMAGING OR DERABLES Performing Organization Address [facility] de Phone Number [email or web address] * MR OUTSIDE IMAGES NEURO (04/30/2019 14:31 EST) Narrative [facility] - 04/30/2019 14:31 EST This is a non-reportable exam. Provider Unknown MD [facility] OTHER IMAGING OR DERABLES Performing Organization Address [facility] de Phone Number HIWOT documented in this encounter Visit Diagnoses Not on filedocumented in this encounter Care Teams Business Services Administrator Relationship Specialty Start Date End Date Remigio Teixeira MD [address] [address] PCP - General 10/19/10 documented as of this encounter
--- OUTSIDE RECORDS SUMMARY | 2024-03-20 10:24 | XMS_ITS | Encounter Summary ---
Author Organization [facility] Address [address] [place] [address] Care Team Providers Care Customer Resolution Specialist Name Role Phone Remigio Teixeira MD Primary Care Provider [phone] Encounter Details Date Type Department Care Team (Latest Contact Info) Description 07/23/2019 11:15 EDT - 07/24/2019 23:59 EDT Hospital Encounter [address] Xray [address] [place], [place] [phone] Chronic low back pain, unspecified back pain [...] Lumbar spine MRI March 10, 2019 from [facility] and lumbar spine films February 23, 2019 from [facility] Technique: Lateral flexion and extension views [...] Lumbar spine MRI March 10, 2019 from [facility] and lumbar spinefilms February 23, 2019 from [facility] Technique: Lateral flexion and extension views [...] present documented in this encounter Care Teams Customer Resolution Specialist Relationship Specialty Start Date End Date Remigio Teixeira MD [address] [address] PCP - General 10/19/10 documented as of this encounter
--- OUTSIDE RECORDS SUMMARY | 2024-03-20 10:24 | XMS_ITS ---
Author Organization Unknown Address [address] [place] [phone] Phone Care Team Providers Care Quarter Seamer Name Role Phone SAMSON TURNERAH William Attending Unavaila ble SOHAIL CLYDE Primary Unavailable Social History Type Status Start Date End Date Code Code Syst em Smoking History Never smoker (Never Smoked) 532380868 SNOMED CT Sex Male Vital Signs Vital Sign Value Unit Winnett Value Winnett Unit Date/Time Recent/Initial? Code Code System Systolic Blood Pressure 111 mm[Hg] 03/18/2023 08:54 Initial 8480-6 LOINC Diastolic Blood Pressure 79 mm[Hg] 03/18/2023 08:54 Initial 8462-4 [facility] O2 Saturation 100 % 2022 08:54 Initial 71600- 5 INC Pulse 60.0 /min 03/18/2023 08:54 [...] Po lyp Lesion Snare Tq 03/18/2023 completed 36085 CPT Colonoscopy, Flexible, Proxi mal To Splenic Flexure; w/Bx, Single/Multiple 03/18/2023 completed 23592 C PT Plan of Treatment LAB DRAW 20MIN 03/30/2023 Encounters Encounter Diagnosis Start Date Code Code Sys tem Encounter for screening for malignant neoplasm of colo n 03/18/2023 SNOMED-CT Personal Care Team Section Performer Name Performer Role Active Date Inactive Da te
--- OUTSIDE RECORDS SUMMARY | 2024-03-20 10:24 | XMS_ITS | Encounter Summary ---
Author Organization [facility] Address [address] [place] [address] Care Team Providers Care Epic Cadence Analyst Name Role Phone Remigio Teixeira MD Primary Care Provider [phone] Reason for Visit * Reason Onset Date Comments Back Pain 07/22/2019 Encounter Details Date Type Department Care Team (Late st Contact Info) Description 07/22/[address] [facility] Spine Program - [address] [place] [address] Arlette Cavazos PA-C [address] [place] [address] [place] [address] Chronic low back pain, unspecified [...] Lumbar spine MRI March 10, 2019 from [facility] and lumbar spine films February 23, 2019 from [facility] Technique: Lateral flexion and extension views [...] Lumbar spine MRI March 10, 2019 from [facility] and lumbar spinefilms February 23, 2019 from [facility] Technique: Lateral flexion and extension views [...] present documented in this encounter Care Teams Epic Cadence Analyst Relationship Specialty Start Date End Date Remigio Teixeira MD [address] [place] [address] PCP - General 10/19/10 documented as of this encounter
--- OUTSIDE RECORDS SUMMARY | 2024-03-20 10:24 | XMS_ITS | Encounter Summary ---
Author Organization [facility] Address [address] [place] [address] Care Team Providers Care Red Lead Burner Name Role Phone Remigio Teixeira MD Primary Care Provider [phone] Reason for Referral * Radiology Services (Routine) - Closed Specialty Diagnoses / Procedures Referred By Contac t Referred To Contact Diagnoses Cervicalgia Procedures CERVICAL SPINE 2-3 VIEWS Arlette Cavazos PA-C [address] [place] [phone] Referral ID Status Reason Start Date Expiration Date Visits Re quested Visits Authorized [id number] Closed 03/15/2014 1 1 Encounter Details Date Type Department Care Team (Late st Contact Info) Description 03/15/2014 Orders Only [facility] Spine Program - [address] [address] Arlette Cavazos PA-C [address] [place] [address] Cervicalgia (Primary Dx) Social History Tobacco [...] Neck pain. Comparison: Cervical spine films from [facility] on November 28, 2012. Technique: Lateral [...] Neck pain. Comparison: Cervical spine films from [facility] on November 28, 2012. Technique: Lateral [...] Primary documented in this encounter Care Teams Red Lead Burner Relationship Specialty Start Date End Date Remigio Teixeira MD [address] [address] PCP - General 10/19/10 documented as of this encounter
--- OUTSIDE RECORDS SUMMARY | 2024-03-20 10:24 | XMS_ITS | Clinical Summary ---
Author Organization [facility] Address [address] [place] [address] Care Team Providers Care Collections Curator Name Role Phone Remigio Teixeira MD Primary Care Provider [phone] Allergies No known active allergies Medications Medication [...] COVID-19 Vaccine (2022-24 season) 2023 Care Teams Collections Curator Relationship Specialty Start Date End Date Remigio Teixeira MD [address] [facility] [address] [place] [address] PCP - General 10/19/10
--- OUTSIDE RECORDS SUMMARY | 2024-03-20 10:24 | XMS_ITS | Encounter Summary ---
Author Organization [facility] Address [address] [place] [address] Care Team Providers Care Machine Rope Maker Name Role Phone Remigio Tiexeira MD Primary Care Provider [phone] Reason for Visit * Reason Onset Date Comments Referral Request 11/02/2019 Encounter Details Date Type Department Care Team (Late st Contact Info) Description 11/02/2019 Telephone [facility] Spine Program - [address] [place] [address] Arlette Cavazos PA-C [address] [place] [address] [place] [address] Referral Request Social History Tobacco [...] injections be changed from Pain Medicine to [facility]. Order pended. documented in this encounter Plan of Treatment Not on file documented as of this encounter Visit Diagnoses Not on filedocumented in this encounter Care Teams Machine Rope Maker Relationship Specialty Start Date End Date Remigio Teixeira MD [address] [place] [address] PCP - General 10/19/10 documented as of this encounter
--- OUTSIDE RECORDS SUMMARY | 2024-03-20 10:24 | XMS_ITS ---
Author Organization Unknown Address [address] [place] [phone] Phone Care Team Providers Care Metal Tank Builder Name Role Phone SAMSON Thomas Attending Unavaila ble Social History Type Status Start Date End Date Code Code Syst em Smoking History Never smoker (Never Smoked) [id number] SNOMED CT Sex Male Hospital Discharge Instructions [...] Screening for malignant neoplasm of colon 03/18/2023 [id number] SNOMED-CT Personal Care Team Section Performer Name Performer Role Active Date Inactive Da te
--- OUTSIDE RECORDS SUMMARY | 2024-03-20 10:24 | XMS_ITS | Encounter Summary ---
Author Organization [facility] [place] [address] Care Team Providers Care Rouge Mixer Name Role Phone Remigio Teixeira MD Primary Care Provider [phone] Encounter Details Date Type Department Care Team (Late st Contact Info) Description 03/22/2015 Notes Only Infectious Disease at [facility] [place] [phone] Sherry Edgar RN Social History Tobacco Use Types Packs/Day [...] 04/03/2024 10:00 AM EST Telephone Neurosurgery at [facility] [place] [address] 04/08/2024 9:45 AM EST Telephone Pre-Admission Testing at [facility] [place] [address] 04/13/2024 9:40 AM EST Hospital Encounter Operating Room [facility] [place] [address] Salome Bazzi MD [facility] [place] [address] 04/13/2024 9:40 AM EST - 04/13/2024 11:25 AM EST Surgery Operating Room [facility] [place] [address] Salome Bazzi MD [facility] [place] [address] LAMINECTOMY, FACETECTOMY & FORAMINOTOMY, CX, ONE LEVEL (WRVU 17.95) 04/20/2024 2:00 PM EST Telephone Neurosurgery at [address] [address] 05/20/2024 3:35 PM EST Office Visit Neurosurgery at [address] [address] Orin Méndez PA [facility] [place] [address] 07/14/2024 2:10 PM EST Office Visit Neurosurgery at [address] [address] Salome Bazzi MD [facility] [place] [address] Scheduled Procedures Name Priority Associated Diagnoses Date/Ti me LAMINECTOMY, FACETECTOMY & FORAMINOTOMY, CX, ONE LEVEL (WRVU 17.95) cervical stenosis 04/13/2024 9:40 AM EST documented as of this encounter Visit Diagnoses Not on filedocumented in this encounter Care Teams Rouge Mixer Relationship Specialty Start Date End Date Remigio Teixeira MD PCP - General 10/15/14 03/11/23 documented as of this encounter
--- OUTSIDE RECORDS SUMMARY | 2024-03-20 10:24 | XMS_ITS | Encounter Summary ---
Author Organization [facility] Address [address] [place] [address] Care Team Providers Care Pen Rider Name Role Phone Remigio Teixeira MD Primary Care Provider [phone] Reason for Visit * Reason Onset Date Comments Back Pain 11/02/2019 Encounter Details Date Type Department Care Team (Late st Contact Info) Description 11/02/2019 Telephone [facility] Spine Program - [address] [place] [address] Arlette Cavazos PA-C [address] [place], [place] [address] [place] [address] Back Pain Social History Tobacco [...] Primary documented in this encounter Care Teams Pen Rider Relationship Specialty Start Date End Date Remigio Teixeira MD [address] [address] PCP - General 10/19/10 documented as of this encounter
--- OUTSIDE RECORDS SUMMARY | 2024-03-20 10:24 | XMS_ITS | Encounter Summary ---
Author Organization [facility] Address [address] [place] [address] Care Team Providers Care Gravel Inspector Name Role Phone Remigio Teixeira MD Primary Care Provider [phone] Reason for Visit * Reason Onset Date Comments Appointment Related 03/03/2020 Encounter Details Date Type Department Care Team (Late st Contact Info) Description 03/03/2020 Telephone [facility] Interventional Pain [address] [place] [address] Unknown, Doctor MD Appointment Related [...] Telephone Encounter - Marcia Zapata - 03/03/2020 1314 EDT LM for pt to call back and schedule referral. Recall in. documented in this encounter Plan of Treatment Not on file documented as of this encounter Visit Diagnoses Not on filedocumented in this encounter Care Teams Gravel Inspector Relationship Specialty Start Date End Date Remigio Teixeira MD [address] [place] [address] PCP - General 10/19/10 documented as of this encounter
--- OUTSIDE RECORDS SUMMARY | 2024-03-20 10:24 | XMS_ITS | Referral Summary ---
Author Organization [facility] Address [address] [place] [address] Care Team Providers Care Safety Council Director Name Role Phone Remigio Teixeira MD Primary Care Provider Allergies No known active allergies Medications Medication [...] of Treatment Not on file Care Teams Safety Council Director Relationship Specialty Start Date End Date Remigio Teixeira MD [address] [place] [address] PCP - General 10/19/10
--- OUTSIDE RECORDS SUMMARY | 2024-03-20 10:24 | XMS_ITS | Encounter Summary ---
Author Organization [facility] Address [address] [place] [address] Care Team Providers Care Piecer Up Name Role Phone Remigio Teixeira MD Primary Care Provider [phone] Encounter Details Date Type Department Care Team (Late st Contact Info) Description 12/06/2010 Abstract [facility] Spine Program - [address] [place], [place] [phone] Grady Nunez MD Social History Tobacco Use [...] 03/15/2014 added in this encounter Care Teams Piecer Up Relationship Specialty Start Date End Date Remigio Teixeira MD [address] [place] [address] PCP - General 10/19/10 documented as of this encounter
--- OUTSIDE RECORDS SUMMARY | 2024-03-20 10:24 | XMS_ITS | Encounter Summary ---
Author Organization [facility] Address [address] [place] [address] Care Team Providers Care Tipple Mechanic Name Role Phone Remigio Teixeira MD Primary Care Provider [phone] Encounter Details Date Type Department Care Team (Late st Contact Info) Description 02/23/2014 Results Only Imaging [facility] [phone] Unknown, Provider, Social History Tobacco Use Types Packs/Day Years [...] on filedocumented in this encounter Care Teams Tipple Mechanic Relationship Specialty Start Date End Date Remigio Teixeira MD [address] [place] [address] PCP - General 10/19/10 documented as of this encounter
--- OUTSIDE RECORDS SUMMARY | 2024-03-20 10:24 | XMS_ITS | Encounter Summary ---
Author Organization [facility] [place] [address] Care Team Providers Care Distribution Lineman Name Role Phone Faith Peace Bates APRN Primary Care Provider [phone] Reason for Referral * Consultation (Urgent) - Closed Specialty Diagnoses / Procedures Referred By Contapolonia t Referred To Contact Neurosurgery Diagnoses Radiculopathy, cervical Edis Kent MD [address] [place] [address] Salome Bazzi MD [address] [place] [address] Referral ID Status Reason Start Date Expiration Date V isits Requested Visits Authorized [id number] Closed Consult, Test & Treat 01/27/2024 01/26/2025 1 1 Encounter Details Date Type Department Care Team (Latest Contact Info) Description 01/27/2024 Transcribe Orders eDH Incoming Referrals [phone] Edis Kent MD [address] [place] [address] Radiculopathy, cervical Social History Tobacco Use Types Packs/Day Years [...] EST Telephone Neurosurgery at [facility] [place] [address] 04/08/2024 9:45 AM EST Telephone Pre-Admission Testing at [address] [address] 04/13/2024 9:40 AM EST Hospital Encounter Operating Room [facility] [place] [address] Salome Bazzi MD [address] [facility] [place] [address] 04/13/2024 9:40 AM EST - 04/13/2024 11:25 AM EST Surgery Operating Room [facility] [place] [address] Salome Bazzi MD [facility] [place] [address] LAMINECTOMY, FACETECTOMY & FORAMINOTOMY, CX, ONE LEVEL (WRVU 17.95) 04/20/2024 2:00 PM EST Telephone Neurosurgery at [address] [address] 05/20/2024 3:35 PM EST Office Visit Neurosurgery at [address] [address] Orin Méndez PA [address] [facility] [place] [address] 07/14/2024 2:10 PM EST Office Visit Neurosurgery at [address] [address] Salome Bazzi MD [address] [facility] [place] [address] Scheduled Procedures Name Priority Associated Diagnoses Date/Ti me LAMINECTOMY, FACETECTOMY & FORAMINOTOMY, CX, ONE LEVEL (WRVU 17.95) cervical stenosis 04/13/2024 9:40 AM EST Scheduled Referrals Name Type Priority Associated Diagnoses Order Schedule Referral to Neurosurgery Outpatient Referral Routine Radiculopathy, cervical Ordered: 01/27/2024 documented as of this encounter Visit Diagnoses Diagnosis Radiculopathy, cervical Brachial neuritis or radiculitis nos documented in this encounter Care Teams Distribution Lineman Relationship Specialty Start Date End Date Peace Cuevas, SENIOR ORACLE DBA [address] [place] [address] PCP - General Family Medicine 01/27/24 documented as of this encounter
--- OUTSIDE RECORDS SUMMARY | 2024-03-20 10:25 | XMS_ITS ---
Author Organization Unknown Address [address] [place], [place] [id number] Phone Care Team Providers Care Analysis Engineer Name Role Phone SOHAIL CLYDE Attending Unavailable Results LIPID PANEL* - Collect Date/ Time: 03/30/2023 08:27 [facility] ID: [id number] [address] [place] [address], [id number] LOINC: Test Value Unit Reference Range Code Code System Flag FASTING STATUS: FASTING CHOLESTEROL 193 mg/dL L=0 H=200 2093-3 LOINC TRIGLYCERIDES 32 mg/dL L=63 H=313 2571-8 LOINC L HDL 92 mg/dL L=28 H=63 2085-9 LOINC H non-HDL-C 101 mg/dL L=0 H=160 53121-6 LOINC LDL (CALC) 95 mg/dL L=0 H=130 79220-6 LOINC % HDL 47.7 % Chol/HDL Ratio 2.1 L=0.0 H=4.9 9830-1 LOINC CHD Relative Risk 0.4 x Avg L=0.0 H=1.0 LDL/HDL Ratio 1.0 L=0.0 H=3.5 34979-5 LOINC CHD Relative Risk. 0.3 x Avg L=0.0 H=1.0 TSH THYROID STIMULATING HORM ONE* - Collect Date/Time: 03/30/2023 08:27 [facility] ID: [id number] [address] [place], [place], [address] LOINC: 3014-8 Test Value Unit Reference Range Code Code System Flag TSH 1.242 uIU/mL L=0.360 H=3.740 3014-8 LOINC COMPREHENSIVE METABOLIC PANE L (CMP) - Collect Date/Time: 03/30/2023 08:27 [facility] ID: [id number] [address] [place], [place], [address] [address] Test Value Unit Reference Range Code Code [...] H=34 2028-9 LOINC ANION GAP 4.8 mmol/L 49271-3 LOINC CALCIUM SERUM 9.0 mg/dL L=8.2 H=10.2 15052-6 LOINC BILIRUBIN TOTAL 0.7 mg/dL L=0.0 H=1.3 1975-2 LOINC ALK. PHOS. 67 U/L L=46 H=116 6768-6 LOINC SGOT (AST) 27 U/L L=15 H=37 1920-8 LOINC SGPT (ALT) 29 U/L L=12 H=78 1742-6 LOINC TOTAL PROTEIN 7.4 gm/dL L=6.0 H=8.0 2885-2 LOINC ALBUMIN 3.9 gm/dL L=3.4 H=5.0 1751-7 LOINC AGE 57 years eGFR (non-Afr.Amer.) 74 mL/min 47155-2 LOINC eGFR (Afr-Sri [place]ankan) 89 mL/min 71800-2 INC Social History Type Status Start Date End Date Code Code Syst em Smoking History Never smoker (Never Smoked) [id number] SNOMED CT Sex Male Hospital Discharge Instructions [...]
[2024-03-20 14:55] LABS: HGB 15.1 g/dL (13.5-17.5); MCH 29.8 pg (27.0-33.0); MCHC 33.6 % (32.0-36.0); MCV 89 fL (80-95); MPV 10.5 fL (8.0-11.0); Platelet Count 222 10^3/uL (130-400); RBC 5.06 10^6/uL (4.36-5.78); RDW 12.1 % (11.8-14.1); RDW-SD 39.8 fL
[2024-03-20 15:11] LABS: Anion Gap 6.8 mmol/L (3-11); BUN 11 mg/dL (7-18); CO2 29.2 mmol/L (21.0-32.0); CREATININE 1.1 mg/dL (0.70-1.30); Calcium 9.1 mg/dL (8.5-10.1); Chloride 106 mmol/L (98-107); Estimated GFR 77.81 (mL/min/1.73m2); Glucose 95 mg/dL (74-106); Potassium 4.5 mmol/L (3.5-5.1); Sodium 142 mmol/L (136-145)
== END 2024-03-20 10:22 | disposition home or self-care (01) ==
LOC: NCHCN 10:21
PROVIDERS: PCP Nurse Practitioner Family; Visit Provider Internal Medicine
DX: Z01.818 Encounter for other preprocedural examination (principal)
CPT/HCPCS: 80048; 85027

== ENCOUNTER 2024-06-10 13:11 | Outpatient (CLI) | payer MEDICAID, SELFPAY ==
[2024-06-10] VITALS (18 sets, daily range): BP systolic 119–146; BP diastolic 66–92; PULSE 69–88; RESP 8–27; TEMP 36.6; O2SAT 97–99
--- NOTE | 2024-06-10 06:00 | DI.RAD_ITS ---
Exam(s) XR PAIN CLINIC LUMBAR SP 2V EXAM: XR PAIN CLINIC LUMBAR SP 2V CLINICAL HISTORY: Dx: Lumbar Spondylosis TECHNIQUE: 2D and realtime digital imaging was performed. Radiologist not present. CONTRAST MATERIAL: None. COMPARISON: No exams were available for comparison FINDINGS: Fluoroscopy was provided for pain management therapy. L3-L5 lumbar radiofrequency ablation procedure. Please refer to procedure report or details. Radiation Exposure Index: Ka,r=12.85 mGy IMPRESSION: As above. RADIATION DOSE DELIVERED:
[2024-06-10] MEDS: fentaNYL 100 MCG/2 ML VIAL IVP ×2 (13:50→13:55)
[2024-06-10] MEDS: Midazolam 2 MG/2 ML VIAL IVP (13:50)
[2024-06-10] MEDS: Lactated Ringers 500 ML 80 ML IV (14:04)
[2024-06-10] MEDS: methylPREDNISolone ACETATE 40 MG/ML VIAL IJ (14:36)
[2024-06-10] MEDS: Lidocaine 2% Multi-Dose 20 ML VIAL IJ (14:36)
[2024-06-10] MEDS: Bupivacaine 0.5% Pres-Free 10 ML VIAL IJ (14:36)
[2024-06-10] MEDS: Nerve Block Tray 1 EACH MC (14:37)
--- NOTE | 2024-06-10 14:46 | PDOC.PAIN_ITS ---
Date of service: 06/10/24 Time of Service: 14:46 Pain Managment Procedure Note Procedure Note Procedure Note: PROCEDURE NOTE BILATERAL LUMBAR RADIOFREQUENCY ABLATION Date of Service: June 10, 2024 Patient:Jamal Hoang? Provider:? Riley Tapia DO, MPH Jamal Evans [facility] Bilateral Lumbar Radiofrequency Ablation with the [employer] Machine.? Pre Operative Diagnosis: Lumbosacral Spondylosis without Myelopathy ICD-10 M47.816 Post Operative Diagnosis: Same Pre procedure pain; VAS= 7/10 Comments: He had >6 months of >50% pain relief with his last lumbar RFA PROCEDURE: Radiofrequency Ablation of medial branches - bilateral L3, L4, L5 and lateral branches of bilateral S1. Jamal?was interviewed and the medical record was reviewed.? There were no medical, pharmacologic, radiographic or other structural contraindications to attempting fluoroscopically guided BILATERAL Lumbar Radiofrequency Ablation.?Risks and expected side effects as well as potential benefit of the procedure were reviewed with Jamal, and the patient's voiced concerns were add ressed.? The printed consent form was signed.? Standard time-out procedure was performed. Jamal was brought into the fluoroscopy suite and positioned into the prone position on the fluoroscopy table and allowed to adjust to a position of comfort. A grounding pad was placed on the left abdomen. The sterile field was prepared using chlorhexidine preparation of the skin and sterile draping. Local anesthesia superficial and deep was provided by local infiltration of 2% lidocaine. A 17g 100 mm radiofrequency introducer needle was placed to the planned anatomic targets guided with intermittent fluoroscopy with a perpendicular approach to terminally place at the junction of the superior articular process and the transverse process of the bilateral L4, L5, the base of the sacral ala on the bilateral for the L5 medial branch nerve and the area between base of the sacral ala to the S1 foramen bilaterally. The stylets were removed and radiofrequency probes with a 4mm active tip were then inserted. Needle tip position of the probes was verified in the AP, oblique, and lateral views. At each site, the medial branch nerve was stimulated at 2 Hz to a maximum 1-2 volts determined to finalize safe needle and electrode placement. The patient was awake and responsive during this portion of the procedure. Each target was anesthetized with 1-2 mL of 2 % Lidocaine for anesthesia for lesioning and then each target was lesioned at 80 degrees Celsius for 2 minutes and 30 seconds. Tissue impedances were noted to be between 250 and 500 Ohms. There was no unusual discomfort expressed by Jamal. The needles were withdrawn without difficulty and bandages placed over the needle placement sites, the patient was observed and was without hemodynamic, neurologic, or allergic reactions. Fluoroscopic images were digitally archived. POST PROCEDURE EVALUATION: IMPRESSION: 1. Summary of procedure. Medication given is documented in the MAR. 2. Follow up plan: Jamal to contact [facility] needed.?This procedure may be repeated if the patient achieves at least 50% improvement in pain/function for at least 6 months. 3. Estimated Blood Loss: <5 mls 4. Fluoroscopy time: Documented in the EMR. Follow up plans and appointments were discussed with the Jamal. Post procedure instruction was given as documented in nursing documentation and having met discharge criteria, Jamal was [facility] from the [facility]. This advanced procedure uses cooled radiofrequency energy to safely target the sensory nerves responsible for sending pain signals.1 A radiofrequency generator transmits a small current of Radiofrequency energy through an insulated electrode, or probe, placed within tissue. Ionic heating, produced by the friction of charged molecules, thermally deactivates the nerves responsible for sending pain signals to the brain. Radiofrequency energy heats and cools the tissue at the site of pain. Unlike other Radiofrequency procedures, Coolief circulates water through the device while heating nervous tissue to create a larger treatment area, increasing the opportunity to help with pain. This combination targets the pain- transmitting nerves without excessive heating, leading to pain relief. COMMENTS: No apparent complications. Post-procedure pain: VAS= 1/10. I personally completed the entire procedure. RILEY TAPIA DO, MPH ABPM&R - Subspecialty board certification in Pain Medicine [facility]
== END 2024-06-10 13:12 | disposition home or self-care (01) ==
LOC: PC 13:11
PROVIDERS: PCP Nurse Practitioner Family; Visit Provider Preventive Medicine Occupational Medicine
DX: M47.816 Spondylosis without myelopathy or radiculopathy, lumbar region (principal)
CPT/HCPCS: 64635; 64636; 72100; J0665; J1010; J2003; J2250; J3010

== ENCOUNTER 2024-07-06 08:28 | Outpatient (REF) | payer MEDICAID, SELFPAY ==
[2024-07-06 15:32] LABS: Calculated LDL 99 mg/dL (<100); Cholesterol 198 mg/dL (<200); HDL Cholesterol 88 mg/dL (40-60); Triglyceride 55 mg/dL (<150)
[2024-07-07 09:47] LABS: PSA, Screening 1.2 ng/mL (<=3.5)
== END 2024-07-06 08:29 | disposition home or self-care (01) ==
LOC: NCHCN 08:28
PROVIDERS: PCP Nurse Practitioner Family; Visit Provider Internal Medicine
DX: Z13.220 Encounter for screening for lipoid disorders (principal); Z12.5 Encounter for screening for malignant neoplasm of prostate
CPT/HCPCS: 80061; 84153

== ENCOUNTER 2024-11-26 01:34 | Outpatient (CLI) | payer MEDICAID, SELFPAY ==
[2024-11-26] MEDS: Albuterol HFA 18 GM 200 PUFF INH IH (11:55)
[2024-11-26] MEDS: Inhaler, Assist Device 1 EACH MC (11:55)
[2024-11-26] MEDS: Methacholine 100 MG VIAL IH (11:55)
--- NOTE | 2024-11-30 10:22 | W.PFT ---
Date of service: 11/26/24 Time of Service: 10:00 Pulmonary Function Test Result Indications: Cough and dyspnea Impression Interpretation: 1. Good patient effort was noted. Reproducibility standards met. 2. Spirometry showed a slightly reduced FEV1:FVC ratio, which can be see with mild obstructive lung disease or be a normal variant. There was an inadequate bronchodilator response 3. TLC is normal. No evidence of restrictive lung disease 4. DLCO was 74%, consistent with a mild defect in alveolar gas exchange 5. Methacholine challenge testing showed a 21% fall in FEV1 at 1 mg/ml methacholine, consistent with a positive test. Clinical Correlation therefore is recommended.
== END 2024-11-26 01:35 | disposition home or self-care (01) ==
LOC: RT 01:34
PROVIDERS: PCP Nurse Practitioner Family; Visit Provider Internal Medicine Pulmonary Disease
DX: R05.3 Chronic cough (principal); R06.00 Dyspnea, unspecified; R94.2 Abnormal results of pulmonary function studies
CPT/HCPCS: 94070; 94726; 94729; 95070; J7674

== ENCOUNTER 2025-01-20 12:03 | Outpatient (CLI) | payer MEDICAID, SELFPAY ==
[2025-01-20] VITALS (17 sets, daily range): BP systolic 130–161; BP diastolic 73–105; PULSE 58–91; RESP 10–20; TEMP 37; O2SAT 98–100
--- NOTE | 2025-01-20 06:00 | DI.RAD_ITS ---
Exam(s) XR PAIN CLINIC LUMBAR SP 2V EXAM: XR PAIN CLINIC LUMBAR SP 2V CLINICAL HISTORY: Dx: Lumbar Spondylosis. TECHNIQUE: Fluoroscopy was provided for the referring physician for guidance with performing pain clinic injection procedure. COMPARISON: No exams were available for comparison FINDINGS: Please see procedure note for details. Fluoro time: 82.0 seconds RADIATION DOSE DELIVERED: ashli Fitch=9.04 mGy
[2025-01-20] MEDS: Midazolam 2 MG/2 ML VIAL IVP (13:00)
[2025-01-20] MEDS: fentaNYL 100 MCG/2 ML VIAL IJ (13:00)
[2025-01-20] MEDS: Lactated Ringers 500 ML 30 ML IV (13:09)
[2025-01-20] MEDS: Nerve Block Tray 1 EACH MC (13:09)
[2025-01-20] MEDS: Lidocaine 2% Multi-Dose 20 ML VIAL IJ (13:42)
[2025-01-20] MEDS: methylPREDNISolone ACETATE 40 MG/ML VIAL IJ (13:43)
[2025-01-20] MEDS: Bupivacaine 0.5% Pres-Free 10 ML VIAL IJ (13:43)
--- NOTE | 2025-01-20 13:43 | PDOC.PAIN_ITS ---
Date of service: 01/20/25 Time of Service: 13:43 Pain Managment Procedure Note Procedure Note Procedure Note: PROCEDURE NOTE BILATERAL LUMBAR RADIOFREQUENCY ABLATION Date of Service: January 20, 2025 Patient:Jamal Hoang? Provider:? Riley Tapia DO, MPH Jamal Evans [facility] Bilateral Lumbar Radiofrequency Ablation with the [email or web address] Machine.? Pre Operative Diagnosis: Lumbosacral Spondylosis without Myelopathy ICD-10 M47.816 Post Operative Diagnosis: Same Pre procedure pain; VAS= 8/10 Comments: He had this procedure on 06/10/2024 and had >6 months of >50% pain relief. PROCEDURE: Radiofrequency Ablation of medial branches - bilateral L3, L4, L5 and lateral branches of bilateral S1. Jamal?was interviewed and the medical record was reviewed.? There were no medical, pharmacologic, radiographic or other structural contraindications to attempting fluoroscopically guided BILATERAL Lumbar Radiofrequency Ablation.?Risks and expected side effects as well as potential benefit of the procedure were reviewed with Jamal, and the patient's voiced concerns were addressed.? The printed consent form was signed.? Standard time-out procedure was performed. Jamal was brought into the fluoroscopy suite and positioned into the prone position on the fluoroscopy table and allowed to adjust to a position of comfort. A grounding pad was placed on the left abdomen. The sterile field was prepared using chlorhexidine preparation of the skin and sterile draping. Local anesthesia superficial and deep was provided by local infiltration of 2% lidocaine. A 17g 100 mm radiofrequency introducer needle was placed to the planned anatomic targets guided with intermittent fluoroscopy with a perpendicular approach to terminally place at the junction of the superior articular process and the transverse process of the bilateral L4, L5, the base of the sacral ala on the bilateral for the L5 medial branch nerve and the area between base of the sacral ala to the S1 foramen bilaterally. The stylets were removed and radiofrequency probes with a 4mm active tip were then inserted. Needle tip position of the probes was verified in the AP, oblique, and lateral views. At each site, the medial branch nerve was stimulated at 2 Hz to a maximum 1-2 volts determined to finalize safe needle and electrode placement. The patient was awake and responsive during this portion of the procedure. Each target was anesthetized with 1-2 mL of 2 % Lidocaine for anesthesia for lesioning and then each target was lesioned at 80 degrees Celsius for 2 minutes and 30 seconds. Tissue impedances were noted to be between 250 and 500 Ohms. There was no unusual discomfort expressed by Jamal. I then injected 1/4 cc of Depomedrol (40 mg/cc) followed by 1 cc of 0.5% Bupivacaine. The needles were withdrawn without difficulty and bandages placed over the needle placement sites, the patient was observed and was without hemodynamic, neurologic, or allergic reactions. Fluoroscopic images were digitally archived. POST PROCEDURE EVALUATION: IMPRESSION: 1. Summary of procedure. Medication given is documented in the MAR. 2. Follow up plan: Jamal to contact [facility] needed.?This procedure may be repeated if the patient achieves at least 50% improvement in pain/function for at least 6 months. 3. Estimated Blood Loss: <5 mls 4. Fluoroscopy time: Documented in the EMR. Follow up plans and appointments were discussed with the Jamal. Post procedure instruction was given as documented in nursing documentation and having met discharge criteria, Jamal was [facility] from the [facility]. This advanced procedure uses cooled radiofrequency energy to safely target the sensory nerves responsible for sending pain signals.1 A radiofrequency generator transmits a small current of Radiofrequency energy through an insulated electrode, or probe, placed within tissue. Ionic heating, produced by the friction of charged molecules, thermally deactivates the nerves responsible for sending pain signals to the brain. Radiofrequency energy heats and cools the tissue at the site of pain. Unlike other Radiofrequency procedures, Coolief circulates water through the device while heating nervous tissue to create a larger treatment area, increasing the opportunity to help with pain. This combination targets the pain- transmitting nerves without excessive heating, leading to pain relief. COMMENTS: No apparent complications. Post-procedure pain: VAS= 2/10. I personally completed the entire procedure. RILEY TAPIA DO, MPH ABPM&R - Subspecialty board certification in Pain Medicine [facility] Coding Conscious Sedation used for procedure: Yes CPT Codes: Single Facet Joint, Lumbar/Sacral *BILATERAL* - 110689K (5000672R~G) Single Facet Joint, Lumbar/Sacral cool each add'l - 11872B (77832K52~G) Additional Codes: Date of Service (76566) Date of service: 01/20/25 Diagnoses: Lumbosacral spondylosis without myelopathy
== END 2025-01-20 12:04 | disposition home or self-care (01) ==
LOC: PC 12:03
PROVIDERS: PCP Nurse Practitioner Family; Visit Provider Preventive Medicine Occupational Medicine
DX: M47.816 Spondylosis without myelopathy or radiculopathy, lumbar region (principal)
CPT/HCPCS: 64635; 64636; 72100; J0665; J1010; J2003; J2250; J3010

== ENCOUNTER 2025-03-04 12:10 | Outpatient (CLI) | payer MEDICAID, SELFPAY ==
[2025-03-04] VITALS (13 sets, daily range): BP systolic 98–126; BP diastolic 48–82; PULSE 45–69; RESP 12–20; TEMP 37; O2SAT 96–99
--- NOTE | 2025-03-04 06:00 | DI.RAD_ITS ---
Exam(s) XR PAIN CLINIC CERVICAL SP 2V EXAM: XR PAIN CLINIC CERVICAL SP 2V CLINICAL HISTORY: Dx: Cervical Spondylosis. TECHNIQUE: Fluoroscopy was provided for the referring physician for guidance with performing pain clinic injection procedure. COMPARISON: No exams were available for comparison FINDINGS: Please see procedure note for details. Fluoro time: 40.9 seconds RADIATION DOSE DELIVERED: ashli Fitch=2.61 mGy
[2025-03-04] MEDS: Midazolam 2 MG/2 ML VIAL IVP (13:15)
[2025-03-04] MEDS: fentaNYL 100 MCG/2 ML VIAL IJ (13:15)
[2025-03-04] MEDS: Nerve Block Tray 1 EACH MC (13:31)
[2025-03-04] MEDS: Lactated Ringers 500 ML 30 ML IV (13:32)
--- NOTE | 2025-03-04 13:50 | PDOC.PAIN ---
Date of service: 03/04/25 Time of Service: 13:51 Pain Managment Procedure Note Procedure Note Procedure Note: PROCEDURE NOTE LEFT Cervical Radiofrequency Ablation Date of Service: March 04, 2025 Patient: Jamal Evans Provider: Riley Tapia DO, MPH Jamal Evans has [facility] to [facility] LEFT Cervical Radiofrequency Ablation with the [employer] Machine. Pre Operative Diagnosis: Cervical Spondylosis without Myelopathy ICD-10 M47.812 Post Operative Diagnosis: Same Pre procedure pain; VAS= 9/10 Comments: His last left Cervical C3-C6 RFA was 12/04/23 and he had about 12 months of >50% pain relief. PROCEDURE: 1. Left C3-C4 facet joint radiofrequency denervation 2. Left C4-C5 facet joint radiofrequency denervation 3. Left C5-C6 facet joint radiofrequency denervation Jamal was interviewed and the medical record was reviewed. There were no medical, pharmacologic, radiographic or other structural contraindications to attempting fluoroscopically guided LEFT Cervical Radiofrequency Ablation. Risks and expected side effects as well as potential benefit of the procedure were reviewed with Jamal, and the patient's voiced concerns were addressed. The printed consent form was signed. Standard time-out procedure was performed. Jamal was brought to the procedure suite and placed on the exam table in a comfortable lateral recumbent position. A grounding pad was placed on the left abdomen. The place for the needle placement was obtained by manual palpation as well as radiographic confirmation. The sterile field was prepped by chlorhexidine and sterile drapes. Local anesthesia, both superficial and deep was provided by local infiltration of 3 ml Lidocaine 1%. Using fluoroscopic guidance, A 17g 50 mm radiofrequency introducer needle with a 2 mm active tip was placed overlying the left C3 cervical vertebra from the lateral approach and was advanced until bony contact was felt with the articular pillar. Attempted aspiration revealed no blood or cerebrospinal fluid. Motor testing was then performed with 2.0 volts and no upper extremity motor stimulation was observed. 1 ml of 2% Lidocaine was injected through the RF needle. A radiofrequency lesion of the Left medial branch of C3 was then performed at 80 degrees Celsius for 2 minutes and 30 seconds. There was no unusual discomfort expressed by Jamal. The needles were withdrawn without difficulty. Jamal was observed and was without hemodynamic, neurologic, or allergic reactions. Fluoroscopic images were digitally archived. The same procedure was repeated for Left C4, C5, and C6 medial branches. POST PROCEDURE EVALUATION: IMPRESSION: 1. Medication given is documented in the MAR 2. Follow up plan: Jamal to contact [facility] needed. This procedure may be repeated if the patient achieves at least 50% improvement in pain and/or function for at least 6 months. 3. Estimated Blood Loss: <5ml 4. Fluoroscopy time: Documented in the EMR Follow up plans and appointments were discussed with Jamal. Post procedure instruction was given as documented in nursing documentation and having met discharge criteria, Jamal was [facility] from the [facility]. This advanced procedure uses cooled radiofrequency energy to safely target the sensory nerves responsible for sending pain signals.1 A radiofrequency generator transmits a small current of Radiofrequency energy through an insulated electrode, or probe, placed within tissue. Ionic heating, produced by the friction of charged molecules, thermally deactivates the nerves responsible for sending pain signals to the brain. Radiofrequency energy heats and cools the tissue at the site of pain. Unlike other Radiofrequency procedures, Coolief circulates water through the device while heating nervous tissue to create a larger treatment area, increasing the opportunity to help with pain. This combination targets the pain-transmitting nerves without excessive heating, leading to pain relief. COMMENTS: No apparent complications. Post-procedure pain: VAS= 3/10. I personally performed this entire procedure. RILEY TAPIA DO, MPH ABPM&R - Subspecialty board certification in Pain Medicine [facility] Coding Conscious Sedation used for procedure: No CPT Codes: Single Facet Joint, Cervical/Thoracic cool - 04352N (88988J57~G) Single Facet Joint, Cervical/Thoracic cool each add'l - 89481I (51907H28~G) LT - LEFT SIDE 2 additional Additional Codes: Date of Service () Diagnoses: cervical spondylosis without myelopathy
[2025-03-04] MEDS: Dexamethasone Sod. Phos./Pres-Free 10 MG/ML VIAL IJ (13:58)
[2025-03-04] MEDS: Lidocaine 2% Pres-Free 5 ML VIAL IJ (14:01)
[2025-03-04] MEDS: Bupivacaine 0.5% Pres-Free 10 ML VIAL IJ (14:03)
== END 2025-03-04 12:11 | disposition home or self-care (01) ==
LOC: PC 12:10
PROVIDERS: PCP Nurse Practitioner Family; Visit Provider Preventive Medicine Occupational Medicine
DX: M47.812 Spondylosis without myelopathy or radiculopathy, cervical region (principal)
CPT/HCPCS: 64633; 64634; 72040; J0665; J1100; J2250; J3010

== ENCOUNTER 2025-04-15 12:26 | Outpatient (CLI) | payer MEDICAID, SELFPAY ==
[2025-04-15] VITALS (11 sets, daily range): BP systolic 117–141; BP diastolic 60–102; PULSE 62–80; RESP 10–20; TEMP 37; O2SAT 98–100
--- NOTE | 2025-04-15 06:00 | DI.RAD_ITS ---
Exam(s) XR PAIN CLINIC CERVICAL SP 2V EXAM: XR PAIN CLINIC CERVICAL SP 2V CLINICAL HISTORY: DX: Cervical Spondylosis TECHNIQUE: 2D and realtime digital imaging was performed. Radiologist not present. CONTRAST MATERIAL: None. COMPARISON: No exams were available for comparison FINDINGS: Fluoroscopy was provided for pain management therapy. Please refer to procedure report or details. Radiation Exposure Index: Ka,r=2.02 mGy IMPRESSION: As above. RADIATION DOSE DELIVERED:
[2025-04-15] MEDS: Midazolam 2 MG/2 ML VIAL IVP (13:09)
[2025-04-15] MEDS: fentaNYL 100 MCG/2 ML VIAL IJ (13:09)
[2025-04-15] MEDS: Lactated Ringers 500 ML 30 ML IV (13:13)
[2025-04-15] MEDS: Nerve Block Tray 1 EACH MC (13:22)
--- NOTE | 2025-04-15 13:37 | PDOC.PAIN_ITS ---
Date of service: 04/15/25 Time of Service: 13:37 Pain Managment Procedure Note Procedure Note Procedure Note: PROCEDURE NOTE RIGHT Cervical Radiofrequency Ablation Date of Service: April 15, 2025 Patient:? Jamal Evans? Provider:? Riley Tapia DO, MPH Jamal Evans has [facility] to [facility] RIGHT Cervical Radiofrequency Ablation with the [employer] Machine.? Pre Operative Diagnosis: Cervical Spondylosis without Myelopathy ICD-10 M47.812 Post Operative Diagnosis: Same Pre procedure pain; VAS= 9/10 Comments: >50% pain relief for >6 months with his last RFA - the pain has returned PROCEDURE: 1. Left C3-C4 facet joint radiofrequency denervation 2. Left C4-C5 facet joint radiofrequency denervation 3. Left C5-C6 facet joint radiofrequency denervation Jamal?was interviewed and the medical record was reviewed.? There were no medical, pharmacologic, radiographic or other structural contraindications to attempting fluoroscopically guided LEFT Cervical Radiofrequency Ablation.?Risks and expected side effects as well as potential benefit of the procedure were reviewed with Jamal, and the patient's voiced concerns were addressed.? The printed consent form was signed.? Standard time-out procedure was performed. Jamal was brought to the procedure suite and placed on the exam table in a comfortable lateral recumbent position. A grounding pad was placed on the left abdomen. The place for the needle placement was obtained by manual palpation as well as radiographic confirmation. The sterile field was prepped by chlorhexidine and sterile drapes. Local anesthesia, both superficial and deep was provided by local infiltration of 3 ml Lidocaine 1%. Using fluoroscopic guidance, A 17g 50 mm radiofrequency introducer needle with a 2 mm active tip was placed overlying the left C3 cervical vertebra from the lateral approach and was advanced until bony contact was felt with the articular pillar. Attempted aspiration revealed no blood or cerebrospinal fluid. Motor testing was then performed with 2.0 volts and no upper extremity motor stimulation was observed. 1 ml of 2% Lidocaine was injected through the RF needle. A radiofrequency lesion of the Left medial branch of C3 was then performed at 80 degrees Celsius for 2 minutes and 30 seconds. There was no unusual discomfort expressed by Jamal. The needles were withdrawn without difficulty. Jamal was observed and was without hemodynamic, neurologic, or allergic reactions. Fluoroscopic images were digitally archived. The same procedure was repeated for Left C4, C5, and C6 medial branches. POST PROCEDURE EVALUATION: IMPRESSION: 1. Medication given is documented in the MAR 2. Follow up plan: Jamal to contact [facility] needed. This procedure may be repeated if the patient achieves at least 50% improvement in pain and/or function for at least 6 months. 3. Estimated Blood Loss: <5ml 4. Fluoroscopy time: Documented in the EMR Follow up plans and appointments were discussed with Jamal. Post procedure instruction was given as documented in nursing documentation and having met discharge criteria, Jamal was [facility] from the [facility]. This advanced procedure uses cooled radiofrequency energy to safely target the sensory nerves responsible for sending pain signals.1 A radiofrequency generator transmits a small current of Radiofrequency energy through an insulated electrode, or probe, placed within tissue. Ionic heating, produced by the friction of charged molecules, thermally deactivates the nerves responsible for sending pain signals to the brain. Radiofrequency energy heats and cools the tissue at the site of pain. Unlike other Radiofrequency procedures, Coolief circulates water through the device while heating nervous tissue to create a larger treatment area, increasing the opportunity to help with pain. This combination targets the pain- transmitting nerves without excessive heating, leading to pain relief. COMMENTS: No apparent complications. Post-procedure pain: VAS= 2/10. I personally performed this entire procedure. RILEY TAPIA DO, MPH ABPM&R - Subspecialty board certification in Pain Medicine [facility] Coding Conscious Sedation used for procedure: No CPT Codes: Single Facet Joint, Cervical/Thoracic cool - 17921Y (46866P27~G) Single Facet Joint, Cervical/Thoracic cool each add'l - 07047E (30333C29~G) Additional Codes: Date of Service () Diagnoses: Cervical spondylosis without myelopathy
[2025-04-15] MEDS: Dexamethasone Sod. Phos./Pres-Free 10 MG/ML VIAL IJ (13:40)
[2025-04-15] MEDS: Bupivacaine 0.5% Pres-Free 10 ML VIAL IJ (13:41)
[2025-04-15] MEDS: Lidocaine 2% Multi-Dose 20 ML VIAL IJ (13:41)
== END 2025-04-15 12:27 | disposition home or self-care (01) ==
LOC: PC 12:26
PROVIDERS: PCP Nurse Practitioner Family; Visit Provider Preventive Medicine Occupational Medicine
DX: M47.812 Spondylosis without myelopathy or radiculopathy, cervical region (principal)
CPT/HCPCS: 64633; 64634; 72040; J0665; J1100; J2003; J2250; J3010